=== PATIENT | male | born 1945 | race Caucasian/White ===

== ENCOUNTER 2017-11-15 10:15 | Inpatient (IN) | payer OTHER ==
[2017-11-15] MEDS ORDERED: IPRATROPIUM/ALBUTEROL 3 ML DEYVIAL IH ONE (10:23)
--- NOTE | 2017-11-15 10:23 | EDPHY ---
H & P Time Seen by Provider: 11/15/17 10:22 HPI/ROS: Chief complaint. Respiratory difficulty HPI. 72-year-old male here emergently by EMS. He was found not breathing in a parked car outside the [facility]. Patient has multiple myeloma. He has apparently had cough and some respiratory difficulty per his who comes shortly after the patient's arrival. He was seen yesterday at the [facility] and was evaluated but sent home. We find here that the patient has a fever. He did have leg surgery about 2 weeks ago. He has some swelling in his left lower extremity. The patient was placed on oxygen per EMS. Her his blood sugar was about 108. With the extra oxygen as the patient was quite hypoxic he is more alert and responsive and opens his eyes to verbal stimuli. He denies chest discomfort or abdominal pain. Here the patient is tachypnea with a respiratory rate of about 40. ROS Constitutional. Fever and generalized weakness Eyes. no problems with vision ENT. no sore throat, no nasal drainage Cardiovascular. no chest pain Respiratory. Apparent respiratory arrest. Some cough. Abdominal. no abdominal pain, no nausea/vomiting, no diarrhea . no problems urinating MS. no calf pain/swelling, no neck/back pain, no joint pain Skin. no rash Lymph. no swollen glands Neuro. Unable to walk or stand Past Medical/Surgical History: Multiple myeloma Social History: , nonsmoker, no alcohol Physical Exam: General Appearance: Arousable well-developed male moderate to severe distress Eyes: Pupils equal and round no pallor or injection. ENT, Mouth: Mucous membranes are moist. Respiratory: Retractions and tachypnea. Possible rales on the left side Cardiovascular: Regular rate and rhythm with tachycardia Gastrointestinal: Abdomen is soft and nontender, no masses, bowel sounds normal. Neurological: Opens eyes to verbal stimuli. Appears to move all extremities Skin: Warm and dry, no rashes. Musculoskeletal: Neck is supple nontender. Extremities symmetrical, full range of motion. Psychiatric: Patient opens eyes to stimuli Constitutional: Initial Vital Signs Heart Rate 155 H 11/15/17 10:15 Respiratory Rate 36 H 11/15/17 10:15 O2 Sat (%) 86 L 11/15/17 10:15 O2 Delivery Mode Bi-Pap O2 (L/minute) 100 Allergies/Adverse Reactions: No Known Allergies Allergy (Unverified 11/15/17 10:41) Home Medications: Medication Instructions Recorded Acyclovir [Zovirax 400 mg (*)] 400 mg PO BID 11/15/17 Albuterol [Proventil Inhaler HFA 1 - 2 puffs IH DAILY PRN 11/15/17 (*)] Dexamethasone [Decadron 4 MG (*)] 20 mg PO DAILY PRN 11/15/17 LORazepam [Ativan (*)] 0.5 mg PO Q8HRS PRN 11/15/17 Montelukast Sodium [Singulair 10 10 mg PO DAILY 11/15/17 mg (*)] Multivitamins [Multivitamin (*)] 1 each PO DAILY 11/15/17 Ondansetron HCl [Zofran] 8 mg PO Q8HRS PRN 11/15/17 Rivaroxaban [Xarelto 10mg (*)] 10 mg PO DAILY 11/15/17 traMADol [Ultram 50 mg (*)] 50 mg PO Q4 PRN 11/15/17 Medical Decision Making - Diagnostics EKG Interpretation: EKG interpreted by me shows sinus tachycardia. Normal interval and axis. QRS is otherwise normal there is no significant ST elevation or depression. No arrhythmia. Rate 128 Imaging Results: Imaging Impressions Chest X-Ray 11/15/17 10:23 Impression: 1. Left lower lung zone pneumonia. 2. Suspect low bone strength. This patient might benefit from a DEXA scan and follow-up skeletal survey. Chest x-ray interpreted by me shows left lower lobe pneumonia Procedures: Patient is placed on BiPAP. Patient given DuoNeb updraft. Sepsis workup IV normal saline, monitor. Severe sepsis declared at 10:45 a.m. . IV Levaquin. Patient has been given a 30 milliliter/kilogram bolus. Blood pressure remained stable ED Course/Re-evaluation: Serial evaluations and constant attendance for the 1st 25 min shows the patient' s heart rate to go from originally about 150 now at 1:07 a.m.. Blood pressure was 80/40 but now is coming up 92/55. He is receiving his 30 milliliter/ kilogram IV fluid bolus. On BiPAP oxygen saturation is 98%. Patient is becoming more alert. The patient, his , and I discussed imaging and lab results. We discussed treatment plan including recommendation for admission. They expressed understanding and agreement I consulted and discussed case with Dr. Alonzo, hospitalist who agrees to the admission I consulted discussed the case with Dr. Irwin for oncology. There is concern for DVT/PE though the patient does have finding of pneumonia on chest x- ray. Risk factors include multiple myeloma, recent leg surgery, mild leg swelling. Patient's creatinine is elevated 2.2 and so were unable to scan him currently. Ultrasound of his leg is ordered. Differential Diagnosis: Appears the patient has pneumonia. He has sepsis. He is certainly at risk for pulmonary embolus but his creatinine is too high to do a CT angiogram. He does have left leg swelling and so an ultrasound of his left extremity is ordered by me. Critical Care Time: Critical care time exclusive procedures 45 min - Data Points Laboratory Results: Laboratory Results 11/15/17 10:20 11/15/17 10:20 11/15/17 11/15/17 11/15/17 10:35 10:30 10:20 WBC RBC Hgb POC Hgb 10.9 gm/dL L gm/dL (13.7-17.5) Hct POC Hct 32 % L % (40-51) MCV MCH MCHC RDW Plt Count MPV Neut % (Auto) Lymph % (Auto) [place] % (Auto) Eos % (Auto) Baso % (Auto) Nucleat RBC Rel Count Absolute Neuts (auto) Absolute Lymphs (auto) Absolute Monos (auto) Absolute Eos (auto) Absolute Basos (auto) Absolute Nucleated RBC Immature Gran % Seg Neutrophils % Band Neutrophils % Lymphocytes % Monocytes % Eosinophils % Basophils % Metamyelocytes % Myelocytes % Promyelocytes % Blast Cells % Immature Gran # Absolute Seg Neuts Absolute Band Neuts Absolute Lymphocytes Absolute Monocytes Absolute Eosinophils Absolute Basophils Absolute Metamyelocyte Absolute Myelocytes Absolute Promyelocytes Absolute Plasma Cells Absolute Blast Cells Plasma Cells % Platelet Estimate Microcytic Cells Oval Macrocytes Echinocytes PT INR D-Dimer VBG Lactic Acid 13.6 mmol/L H mmol/L (0.7-2.1) POC Sodium 143 mEq/L mEq/L (135-145) Sodium POC Potassium 4.8 mEq/L mEq/L (3.3-5.0) Potassium POC Chloride 110 mEq/L mEq/L (97-110) Chloride Carbon Dioxide Anion Gap POC BUN 39 mg/dL H mg/dL (7-23) BUN Creatinine POC Creatinine 2.2 mg/dL H mg/dL (0.7-1.3) Estimated GFR Glucose POC Glucose 82 mg/dL mg/dL (70-100) Calcium Magnesium 2.6 mg/dL H mg/dL (1.6-2.3) Total Bilirubin Troponin I NT-Pro-B Natriuret Pep Procalcitonin Pending 11/15/17 11/15/17 11/15/17 10:20 10:20 10:20 WBC 4.97 10^3/uL 10^3/uL (3.80-9.50) RBC 3.60 10^6/uL L 10^6/uL (4.40-6.38) Hgb 11.4 g/dL L g/dL (13.7-17.5) POC Hgb Hct 37.4 % L % (40.0-51.0) POC Hct MCV 103.9 fL H fL (81.5-99.8) MCH 31.7 pg pg (27.9-34.1) MCHC 30.5 g/dL L g/dL (32.4-36.7) RDW 18.2 % H % (11.5-15.2) Plt Count 308 10^3/uL 10^3/uL (150-400) MPV 10.2 fL fL (8.7-11.7) Neut % (Auto) Not Reported Lymph % (Auto) Not Reported [place] % (Auto) Not Reported Eos % (Auto) Not Reported Baso % (Auto) Not Reported Nucleat RBC Rel Count Not Reported Absolute Neuts (auto) Not Reported Absolute Lymphs (auto) Not Reported Absolute Monos (auto) Not Reported Absolute Eos (auto) Not Reported Absolute Basos (auto) Not Reported Absolute Nucleated RBC Not Reported Immature Gran % Not Reported Seg Neutrophils % 40.0 % % Band Neutrophils % 48.0 % % Lymphocytes % 3.0 % % Monocytes % 3.0 % % Eosinophils % 0 % % Basophils % 0 % % Metamyelocytes % 6.0 % % Myelocytes % 0 % % Promyelocytes % 0 % % Blast Cells % 0 % % Immature Gran # Not Reported Absolute Seg Neuts 1.99 10^/uL 10^/uL (1.70-6.50) Absolute Band Neuts 2.39 10^3/uL H 10^3/uL (0.00-0.70) Absolute Lymphocytes 0.15 10^3/uL L 10^3/uL (1.00-3.00) Absolute Monocytes 0.15 10^3/uL L 10^3/uL (0.30-0.80) Absolute Eosinophils 0.00 10^3/uL L 10^3/uL (0.03-0.40) Absolute Basophils 0.00 10^3/uL L 10^3/uL (0.02-0.10) Absolute Metamyelocyte 0.30 10^3/mL H 10^3/mL (0.00-0.00) Absolute Myelocytes 0.00 10^3/mL 10^3/mL (0.00-0.00) Absolute Promyelocytes 0.00 10^3/uL 10^3/uL (0.00-0.00) Absolute Plasma Cells 0.00 10^3/uL 10^3/uL (0.00-0.00) Absolute Blast Cells 0.00 10^3/uL 10^3/uL (0.00-0.00) Plasma Cells % 0 % % Platelet Estimate ADEQUATE (ADEQ) Microcytic Cells 1+ H Oval Macrocytes 1+ H Echinocytes 1+ H PT 33.0 SEC H SEC (12.0-15.0) INR 3.26 H (0.83-1.16) D-Dimer 1.83 ug/mLFEU H ug/mLFEU (0.00-0.50) VBG Lactic Acid POC Sodium Sodium 144 mEq/L mEq/L (135-145) POC Potassium Potassium 5.1 mEq/L H mEq/L (3.3-5.0) POC Chloride Chloride 104 mEq/L mEq/L (97-110) Carbon Dioxide 15 mEq/l L mEq/l (22-31) Anion Gap 25 mEq/L H mEq/L (8-16) POC BUN BUN 43 mg/dL H mg/dL (7-23) Creatinine 2.0 mg/dL H mg/dL (0.7-1.3) POC Creatinine Estimated GFR 33 Glucose 91 mg/dL mg/dL (70-100) POC Glucose Calcium 9.2 mg/dL mg/dL (8.5-10.4) Magnesium Total Bilirubin 1.1 mg/dL mg/dL (0.1-1.4) Troponin I 0.036 ng/mL H ng/mL (0.000-0.034) NT-Pro-B Natriuret Pep 3670 pg/mL H pg/mL (0-125) Procalcitonin Medications Given: Acetaminophen (Tylenol) 650 mg PO Q4HRS PRN PRN Reason: Pain, Mild/Fever, Can Take PO Stop: 05/14/18 11:14 Last Admin: 11/15/17 11:36 Dose: 650 mg Heparin Sodium (Porcine) (Heparin Sc Injection) 5,000 unit SC Q8HRS CHRISTINA Stop: 05/14/18 13:59 Last Admin: 11/15/17 13:32 Dose: 5,000 unit Hydrocortisone (Solucortef) 60 mg IVP Q8HRS [facility] Stop: 05/14/18 12:44 Last Admin: 11/15/17 14:20 Dose: Not Given Ascorbic Acid 1,500 mg/ (Dextrose) 103 mls @ 206 mls/hr IV Q6H [facility] Stop: 11/19/17 07:59 Last Admin: 11/15/17 14:14 Dose: 103 mls Thiamine HCl 200 mg/ Sodium (Chloride) 102 mls @ 204 mls/hr IV Q12H [facility] Stop: 11/19/17 01:44 Last Admin: 11/15/17 13:31 Dose: 102 mls Discontinued Medications Albuterol/Ipratropium (Duoneb) 3 ml IH EDNOW ONE Stop: 11/15/17 10:24 Last Admin: 11/15/17 10:37 Dose: 3 ml Levofloxacin/Dextrose (Levaquin 750 Mg (Premix)) 150 mls @ 100 mls/hr IV EDNOW ONE PRN Reason: Protocol Stop: 11/15/17 12:13 Last Admin: 11/15/17 10:49 Dose: 150 mls Sodium Chloride (Ns) 1,800 mls @ 3,600 mls/hr 30 ml/kg infuse over 30 min ( 1800 ml) IV EDNOW ONE PRN Reason: Protocol Stop: 11/15/17 11:13 Last Admin: 11/15/17 10:53 Dose: 1,800 mls Sodium Chloride (Ns) 1,000 mls @ 3,000 mls/hr IV ONCE ONE Stop: 11/15/17 13:08 Last Admin: 11/15/17 12:50 Dose: 1,000 mls Point of Care Test Results: 11/15/17 10:35 POC Sodium 143 POC Potassium 4.8 POC Chloride 110 POC BUN 39 H POC Creatinine 2.2 H POC Glucose 82 Departure - Departure Disposition: [facility] Inpatient Acute Clinical Impression: Pneumonia Qualifiers: Pneumonia type: due to unspecified organism Laterality: left Lung location: lower lobe of lung Qualified Code(s): J18.1 - Lobar pneumonia, unspecified organism Sepsis Qualifiers: Sepsis type: sepsis due to unspecified organism Qualified Code(s): A41.9 - Sepsis, unspecified organism Condition: Fair
[2017-11-15 10:30] LABS: PLATELET COUNT 308 10^3/uL (150-400)
[2017-11-15] MEDS ORDERED: IPRATROPIUM/ALBUTEROL 3 ML DEYVIAL ONE (10:37)
--- NOTE | 2017-11-15 10:38 | CPEKG ---
Heart Rate: 128 RR Interval: 469 P-R Interval: 90 QRSD Interval: 86 QT Interval: 348 QTC Interval: 508 P [place]: 0 QRS [place]: 72 T Wave [place]: 51 EKG Severity - BORDERLINE ECG - EKG Impression: SINUS TACHYCARDIA EKG Impression: VENTRICULAR PREMATURE COMPLEX EKG Impression: BORDERLINE PROLONGED QT INTERVAL Electronically Signed By: Doug Hill 15-Nov-2017 14:45:30
[2017-11-15 10:42] LABS: INR 3.26 (0.83-1.16)
[2017-11-15] MEDS ORDERED: NS 1,800 ML IV ONE (10:44)
[2017-11-15] MEDS ORDERED: ONDANSETRON DISINTEGRATING 4 MG TAB PO PRN (11:15)
[2017-11-15] MEDS ORDERED: ONDANSETRON 4 MG/2 ML VIAL IVP PRN (11:15)
[2017-11-15] MEDS ORDERED: ACETAMINOPHEN 325 MG TAB PO PRN (11:15)
[2017-11-15] MEDS ORDERED: ACETAMINOPHEN 325 MG TAB ONE (11:35)
[2017-11-15] MEDS ORDERED: ALTEPLASE 2 MG VIAL IVP PRN (12:34)
[2017-11-15] MEDS ORDERED: NS 1,000 ML IV ONE (12:49)
[2017-11-15] MEDS ORDERED: NOREPINEPHRINE/NS 500 ML IV SCH (13:00)
--- NOTE | 2017-11-15 13:30 | GHP ---
[f rep st] HISTORY AND PHYSICAL DATE OF ADMISSION: 11/15/2017 CHIEF COMPLAINT: Septic shock and left-sided pneumonia. HISTORY OF PRESENT ILLNESS: This is a 72-year-old male with relapsed multiple myeloma on chemotherapy who was with his today when he slumped over suddenly. History was obtained from and daughter as the patient is not able to participate in the exam. They report shallow breathing for the past week since surgery 11/02 for stabilization of left femur plasmacytoma in [place]. He has been on Xarelto for prophylaxis. Has become confused over the past 2 weeks. Has had a cough intermittently for the past 2 days with yellow sputum production. No V/D, but dry having dry heaves. Decreased p.o. intake for the last several months and has lost 10 pounds. He was started on a new chemotherapy yesterday and is chronically on steroids, which were increased this week. No ill contacts. In the emergency room he was found to be in respiratory distress and started on BiPAP. He was transferred to the ICU for further care. REVIEW OF SYSTEMS: I completed a 10-point review of system per records and with family. PAST MEDICAL HISTORY: Multiple myeloma next. PAST SURGICAL HISTORY: Left femur stabilization on 11/02 in [place]. FAMILY HISTORY: Father with COPD and lung cancer. Mother with lymphoma. Sister with NH at age 60 and breast cancer. ALLERGIES: None. HOME MEDICATIONS: Tramadol 50 mg every 4 hours p.r.n., singular 10 mg daily, Ativan 0.5 mg every 8 hours p.r.n., acyclovir 400 mg twice daily, Zofran 8 mg every 8 hours p.r.n., Decadron 20 mg daily, Xarelto 10 mg daily, multivitamin, and albuterol. PHYSICAL EXAM: VITAL SIGNS: Temperature is 38.3, blood pressure 88/49, heart rate 109, respirations 31, and O2 sat is 84% on BiPAP. GENERAL: In moderate distress. HEENT: PERRLA. Dry mucous membranes. CARDIOVASCULAR: Tachycardic , but regular rate and rhythm. LUNGS: No rales or wheezes. Increased work of breathing using accessory muscles. ABDOMEN: Soft, nontender, and nondistended with positive bowel sounds. : No Tubbs. MUSCULOSKELETAL: Left hip and leg surgical incision and osmel are clean and dry with no evidence of purulence or erythema. This leg is more swollen compared to the right. No overlying erythema. NEUROLOGIC: 2 through 12 are intact. PSYCHIATRIC: Alert and oriented. He is answering questions appropriately. LABORATORY DATA: WBC is 4, hemoglobin 11, hematocrit 37, and platelets 308 with MCV of 104. D-dimer is 1.83. INR is 3.2 and PT is 33. Lactate was 13.6 with repeat of 6.2. Sodium is 143, potassium 4.8, chloride 110, BUN 39, and creatinine is 2.2. Troponin is 0.036. BNP is 3670. Baseline creatinine is 0.8 to 1.2. IMAGING: Chest x-ray was personally reviewed by me showing left lower lobe infiltrate. No effusion. ASSESSMENT AND PLAN: 1. Septic shock secondary to left lower lobe pneumonia with tachycardia, fever , and elevated lactate. He is being aggressively resuscitated with IV fluids. If not responsive, we will start Levophed, high-dose steroids, given chronic use at home, and continue treatment for community-acquired pneumonia with azithromycin and ceftriaxone. He was dosed with Levaquin in the emergency room. Surgical incision healing with no redness, purulence. Check a sputum culture, blood cultures, and respiratory panel. High-risk of mortality with end- organ damage 2. Acute hypoxic respiratory failure: secondary to acute pneumonia & Entero/ rhinovirus. Less likely PE since on Xarelto and negative LE ultrasound. I asked Dr. Gama to evaluate for intubation given increased WOB and may tire out. Check ABG. Patient okay with intubation. 3. Acute kidney injury: due to dehydration, hypotension. Aggressively rehydrate , avoid nephrotoxic agents, and repeat BMP. 4. Multiple myeloma: followed by Dr. Irwin. Oncology will consult.. 5. Anion gap metabolic acidosis: due to hypovolemia. This is improving with fluids and we will continue to trend. 6. Hematuria: suspect catheter trauma compounded with Xarelto. Trend H/H 7. Deep vein thrombosis prophylaxis: SCDs with hematuria DIET IS: n.p.o. DISPOSITION: The patient warrants ICU care with critical illness warranting IV antibiotics, fluids, possible intubation. Critical time spent was 50 minutes evaluating the patient at the bedside with family, reviewing records, and discussing the case with Dr. Gama. /[id number]/MODL MTDD
[2017-11-15] MEDS: HYDROCORTISONE 100 MG/2 ML VIAL IVP SCH ×3 (13:31→22:15)
[2017-11-15] MEDS: THIAMINE HCL 200 MG in NS 100 ML IV SCH (13:31)
[2017-11-15] MEDS ORDERED: HEPARIN 5,000 UNIT/0.5 ML INJ SC SCH (14:00)
[2017-11-15] MEDS: ASCORBIC ACID 1,500 MG in D5W 100 ML IV SCH (14:14)
--- NOTE | 2017-11-15 14:31 | PDMN ---
Medical Necessity Medical necessity: Pt meets IP criteria per MD; est los >2 mn for septic shock & acute hypoxic respiratory failure secondary to LLL pneumonia, as well as acute kidney injury & metabolic acidosis; pt critically ill; admit to ICU for further workup/close monitoring, IV abx, aggressive IVFs & likely intubation; hx multiple myeloma on chemo; per H&P & order 11/15/17
[2017-11-15] MEDS ORDERED: NS 1,000 ML IV SCH (15:45)
[2017-11-15] MEDS ORDERED: ALBUMIN 5% 500 ML IV ONE (15:55)
--- NOTE | 2017-11-15 16:51 | GHP ---
[f rep st] HISTORY AND PHYSICAL DATE OF ADMISSION: 11/15/2017 REFERRING PHYSICIAN: Yady Alonzo MD REASON FOR REFERRAL: Evaluation and management of pneumonia and septic shock. HISTORY: The patient is a 72-year-old male with a history of multiple myeloma status post recent rel apse with plasmacytoma in his knee, who was started on chemotherapy yesterday. At that time, he was seen, evaluated, and although he had cough for a few days with some scant sputum, he was not febrile and he had chemotherapy yesterday. Today he was back at the cancer center and was found unresponsive in his car. He was brought into the emergency department where he was found to be hypotensive, tach ypneic, and hypoxemic. He was started on a sepsis protocol and then brought to the intensive care un it, where he was noted to have tachypnea and labored respirations, possibly impending respiratory marian lure. The patient states that he is quite tachypneic, but does not feel like he is tiring out. He d enies chest pain. He has had some cough. PAST MEDICAL HISTORY: 1. Multiple myeloma. 2. Status post surgery 2 weeks ago on his knee, with stabilization of a plasmacytoma. MEDICATIONS: At time of admission include tramadol, Singulair, Ativan, acyclovir, Zofran, Decadron a nd Xarelto. ALLERGIES: None. SOCIAL HISTORY: He is a nonsmoker. He denies alcohol. FAMILY HISTORY: Positive for COPD and lung cancer. PHYSICAL EXAMINATION: GENERAL: The patient is awake and oriented. He is in moderate respiratory di stress. VITAL SIGNS: His blood pressure is 90/53 with a mean arterial pressure of 62. Heart rate 11 0. His temperature is 38.9, respiratory rate 31. Oxygen saturations are 100% on BiPAP. HEENT: Nor mocephalic and atraumatic. No icterus. NECK: No adenopathy. Trachea is midline. CHEST: He has s ome rales in the left base. CARDIOVASCULAR: Regular, tachycardia without murmur. ABDOMEN: Soft, n ontender. Bowel sounds are present. EXTREMITIES: No clubbing, cyanosis, or edema. NEURO: The pat ient is awake, alert, and oriented. There are no gross motor or sensory deficits. LABORATORY: Hemoglobin is 11.4, platelet count is with 48% bands. The platelet count is . An INR is 3.3 with a D-dimer of 1.8 arterial. A chemistry group shows a creatinine of 2 .0, up from 1.2 yesterday. Troponin is 0.036. A BNP is 3670. Pr. Procalcitonin is 132. Arterial blood gas shows a pH of 7.49, with a pO2 of 56, a CO2 of 23 and a bicarbonate of 17, at 100% oxygen. Lactate is 13 6.2, down from 13.6 at admission. IMAGING: A chest x-ray shows hyperinflation with left lower lobe infiltrate. Images reviewed by me. ASSESSMENT: 1. Septic shock. The patient presents with hypotension, tachycardia, fever, bandemia, and cough and initially being obtunded. He has now responded to IV fluids and initial empiric antibiotic therapy with Levaquin, ceftriaxone and azithromycin. However, he has had increased respiratory distress, pos sibly due to progressive infiltrates and gas exchange difficulties. I was called initially to the shannon nicole's bedside for respiratory failure with intubation, but upon looking at him, he seems to be hold ing his own with tachypnea, but he does not feel he is tiring out. His blood gas does not show CO2 r etention or uncompensated metabolic acidosis, so I think we can potentially hold off on intubation at this point. 2. Acute respiratory failure. Due to pneumonia and probable sepsis. As above, he is currently tach ypneic and has fairly high oxygen needs, but does not need urgent intubation. 3. Acute kidney injury. This is likely due to sepsis. Bladder outlet obstruction is also a possibi lity, as he has apparently had fairly low urine output and with frequent urination of small volumes s alfredito his surgery 2 weeks ago. 4. Multiple myeloma. RECOMMENDATIONS: 1. Continue empiric antibiotics. 2. Continue sepsis protocol. 3. Keep in the ICU. The patient will be monitored closely, and will intubate if he has progressive respiratory failure. I had a talk with the patient and his , and explained to the that I fe el he is at fairly higher morbidity due to his severe sepsis. They would like to proceed with intuba tion if clinically necessary. 4. I will start IV vitamin C protocol. 5. The patient is on Xarelto for DVT prophylaxis. I do not think further evaluation for DVT/PE is w arranted at the current time, given the current clinical scenario. 6. Oncology has been consulted and will follow. /[id number]/MODL
--- NOTE | 2017-11-15 17:15 | ASMTCMCOM ---
CM Note CM Note Notes: 72yr old male admitted due to unresponsiveness in car outside [facility]. Started on chemo therapy 11/14/17 relapsed multiple myeloma. Recent L femur surgery 11/02/17. Now in ICU due to septic shock-L L PNA, Hypoxic resp failure, TAVON. Patient lives with his , supportive daughter. CM to follow. Date Signed: 11/15/2017 02:35 PM Electronically Signed By:Mary Santana LCSW
--- NOTE | 2017-11-15 17:51 | GCON ---
[f rep st] CONSULTATION NEW PATIENT CONSULTATION PRIMARY GIS ANALYST DEVELOPER: Ren Irwin MD. REASON FOR CONSULTATION: Patient admitted to the ICU today with fever, hypotension, loss of consciou sness. HISTORY OF PRESENT ILLNESS: Patient is a 72-year-old gentleman with a history of multiple myeloma. He was diagnosed in June 2013 at the [facility]. He had some incidentally discovered lytic lesions noted on x-rays performed for other reasons. He was ultimately diagnosed with IgA garcia bda myeloma. His bone marrow showed 30% involvement. There was a 13q and a translocation of 11;14 b y FISH. He had an M spike measuring 3.3 g/dL. There was extensive lytic lesions including expansile soft tissue mass at T7 vertebral body without cord compression. He started therapy with Revlimid, V elcade, and dexamethasone, and received palliative radiotherapy at T7 from 09/19/2013 to 10/02/2013, 30 Gy in 10 fractions. He opted not to pursue autologous stem cell transplant. He was started on maintenance Revlimid and h e continued on this treatment from mid 2013 through February of 2016 when he began to have progressive disease. He then started treatment on USOR #[id number] with pomalidomide, dexamethasone, and elotuzumab a nd was in a biochemical remission after several cycles. More recent scans including a PET-CT scan done 10/27/2017, showed extensive metabolically active mult iple myeloma throughout the axial and appendicular skeleton, large destructive soft tissue mass in th e distal left femur without pathologic fracture, marked uptake in the right greater trochanter withou t lytic lesion or pathologic fracture, and small indeterminate metabolically active lesion in the rig ht lobe of the liver, left pelvic lymphadenopathy, and small metabolically active right thyroid nodul e. Around this time, he also developed more left knee pain. MRI showed worsening of the lytic lesio n in the distal femur and Dr. 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 Despite the P ET-CT showing progressive myeloma, his biochemical markers including SPEP and free light chains remai n essentially normal. He had a fixation procedure for his knee on 11/01/2017, and still having a lot of pain. He was havin g nausea and poor p.o. intake. Dr. Irwin recommended moving onto third line therapy. Given progressive disease, it is now truly a nonsecretory myeloma. Patient had cycle 1, day 1 of daratumumab, Velcade, and dexamethasone on 11/14/2017. reports he did relatively well that day and had no concerning infusion reactions. When he left that day, he wa s very weak and could not get comfortable. She reports he was having a wet cough the day prior but d enies any fevers. He does not currently have a Tubbs or any indwelling catheters. reports that he had 2 days of a Tubbs status post knee surgery at the beginning of November, and she mentions to me he has had trouble voiding recently, and over the past couple days, has had minimal urinary output. REVIEW OF SYSTEMS: also reports patient had a syncopal episode last night and recovered on his own. Denies any seizure activity. On presenting to the hospital today for followup, he had a syncop al episode in the parking lot and then was brought into the ER. Vital signs showed hypotension, tach ycardia, and fever. PAST MEDICAL HISTORY: Multiple myeloma as detailed above. History of ankle edema, urinary frequency , T7 expansile lytic lesion status post RT, osteopenia, IgG kappa MGUS, fatigue. PAST SURGICAL HISTORY: Recent knee surgery. FAMILY HISTORY: Noncontributory. MEDICATIONS: Have been reviewed. Will note he was only on a prophylactic dose of Xarelto, given und erlying myeloma. He denies any leg swelling or upper extremity swelling. He also takes acyclovir pr ophylactically. PHYSICAL EXAM: VITAL SIGNS: Today, blood pressure 90/53, heart rate 108, saturating 100% on 15 L no n-rebreather. Temp is 38.9. GENERAL: He is an elderly man, chronically ill-appearing, moderate wor k of breathing. HEENT: Anicteric sclerae. HEART: Tachycardic. LUNGS: Some coarse breath sounds anteriorly. ABDOMEN: Soft, but he does have a distended bladder that is tender to palpation. EXTRE MITIES: Lower extremities, no significant edema. SKIN: Without rash. NEUROLOGIC: He is answering questions appropriately. IMAGING: Chest x-ray done this morning shows left lower lung zone pneumonia. LAB ASSESSMENT: Today shows white blood cell count of 4.9, hemoglobin 11.4, hematocrit 37.4, platele t count 308,000. Has increased amount of band neutrophils. INR 3.26. Lactic acid 6.2, potassium 5. 1, BUN 43, creatinine 2, baseline about 1, total bilirubin 1.1. BNP 3670. ASSESSMENT PLAN: Mr. Shae Mathews is a 72-year-old gentleman with a history of progressive IgA lambda myeloma, who was most recently started on third line therapy, who presents with hypotension, tachyca rdia, and fever worrisome for sepsis. Workup is ongoing. 1. Fever, tachycardia, and hypotension. So far, imaging suggests possible left-sided pneumonia. Wi ll be treated with broad-spectrum antibiotics. Respiratory status is tenuous. I do not feel this is a daratumumab reaction as these usually happen the day of infusion, but certainly, he could be made more short of breath with the amount of fluids he received yesterday. 2. Syncopal episode. He is on low-dose Xarelto, is not therapeutic. Cannot rule out pulmonary embo uche. Photonics Engineering Technician plans to check bilateral lower extremity Dopplers and an echocardiogram. 3. Urinary retention, unclear etiology. Has not been present before. It sounds like it started aft er Tubbs placement the beginning of November. Will place Tubbs. 4. Fever and sepsis workup. Cultures pending at this time including blood, urine. 5. IgA lambda myeloma. Recently started third line therapy with daratumumab, Velcade, and dexametha sone; cycle 1, day 2 today. He is certainly immune compromised and high risk for infection. He has been on prophylactic acyclovir. Will continue to follow along with progress. 6. Myeloma-related lytic lesions. History of radiotherapy and I believe he also remains on a bone s trengthening medication but will have to follow up on this. Continue pain control. Over 30 minutes was spent with patient, more than 50% of time counseling and coordinating care. We w dario continue to follow along during his hospitalization course and make recommendations as appropriat e. /[id number]/MODL
[2017-11-15] MEDS: NOREPINEPHRINE BITARTRATE 4 MG in NS 500 ML IV SCH (22:15)
[2017-11-15] MEDS: cefTRIAXone 2 GM in STERILE WATER INJ 20 ML IV SCH (23:17)
[2017-11-16] MEDS ORDERED: LIDOCAINE 2% JELLY 5 ML TUBE TP ONE (00:01)
[2017-11-16] MEDS ORDERED: LIDOCAINE 2% JELLY 20 ML (UROJECT) UR ONE ×2 (00:15→09:00)
[2017-11-16] MEDS: HYDROmorphONE/DILAUDID 1 MG/ML INJ IVP PRN ×2 (01:22→07:09)
[2017-11-16] MEDS: ASCORBIC ACID 1,500 MG in D5W 100 ML IV SCH ×5 (01:46→20:40)
[2017-11-16] MEDS: THIAMINE HCL 200 MG in NS 100 ML IV SCH ×2 (02:01→15:43)
[2017-11-16] MEDS: NOREPINEPHRINE BITARTRATE 4 MG in NS 500 ML IV SCH ×4 (02:53→23:22)
[2017-11-16 04:22] LABS: INR 2.19 (0.83-1.16); PROTIME(PATIENT) 24.4 SEC (12.0-15.0)
[2017-11-16] MEDS ORDERED: D50W 25 GM/50 ML SYR IVP PRN (04:59)
[2017-11-16] MEDS: HYDROCORTISONE 100 MG/2 ML VIAL IVP SCH ×3 (06:45→22:42)
[2017-11-16] MEDS ORDERED: LIDOCAINE 1% 300 MG/30 ML SDV ONE (08:12)
--- NOTE | 2017-11-16 08:35 | SOAPPROG ---
SOAP Progress Note Assessment/Plan: Assessment: Hematuria -- bladder clot noted and by notes seems may be related to catheter trauma and anticoagulation, consider irrigation in OR if progresses , yet will need overall assessment prior to comitting to this intervention. Discussed with and plans and risks outlined Plan: attempted to irrigate skinner and not successful, plan for OR today to irrigate bladder free of clots 11/16/17 08:33 Subjective: bladder full, patient and family and friends present, noted to have some LUTS prior to being in hospital. I have replaced his skinner to a [address] and could not get return or aspirate any clots. Discussed with family to have OR intervention transurethrally. Risks discussed in face of severely ill patient. Objective: Vital Signs Temp Pulse Resp BP Pulse Ox 38.0 C 114 H 29 H 116/53 L 92 11/16/17 03:00 11/16/17 08:00 11/16/17 08:00 11/16/17 08:00 11/16/17 08:00 Microbiology 11/15/17 13:07 Respiratory Panel (PCR) - Final Nasal, Sinus - Swab Human Rhinovirus/Enterovirus Laboratory Results 11/16/17 04:00 11/16/17 04:00 11/15/17 11/16/17 11/17/17 05:59 05:59 05:59 Intake Total 4045 Output Total 4400 Balance -355 PT 24.4 SEC (12.0-15.0) H D 11/16/17 04:00 INR 2.19 (0.83-1.16) H 11/16/17 04:00 Physical Exam - Physical Exam General Appearance: cachetic Neck: full range of motion Respiratory: No respiratory distress Cardiac/Chest: regular rate, rhythm Abdomen: other (bladder distented and firm to umbilicus and laterally, suggestive of >3 liters in bladder) ICD10 Worksheet Patient Problems: Problems Problem Status Onset Pneumonia Acute Sepsis Acute
[2017-11-16] MEDS: LORazepam 2 MG/ML INJ IVP PRN (08:55)
[2017-11-16] MEDS: AZITHROMYCIN IV 500 MG in NS 250 ML IV SCH (08:58)
[2017-11-16] MEDS: cefTRIAXone 2 GM in STERILE WATER INJ 20 ML IV SCH (08:58)
[2017-11-16] MEDS ORDERED: ENOXAPARIN 40 MG/0.4 ML SYR SC SCH (09:00)
--- NOTE | 2017-11-16 09:08 | HOSPPROG ---
Hospitalist Progress Note Assessment/Plan: #Septic shock: multiple sources. E Coli bacteremia, PNA, Entero/rhinovirus, acute blood loss -wean Levophed as tolerated, IV steroids, ascorbic acid, Albumin #E coli bacteremia: Invanz. Urinary source with bladder stones/hematoma #Acute blood loss anemia: large bladder hematoma: Likely related to skinner for surgery early this month while on Xarelto -stones and clot evacuated by Dr Mtz today #Bladder obstruction: due to hematoma #MM: chemo on hold #Recent stabilization of plasmocytoma. Surgical site healing well #Chronic steroid use: stress-dose steroids #Cardiac arrest: went into rapid a fib in OR, has ROSC with CPR #Atrial fibrillation with RVR: cardioverted x 2. Amiodarone gtt, Cardizem gtt if BP tolerates. No heparin with ABLA #CAP: Azitho, Invanz. Strep, Legionella pending #Acute hypoxic resp failure: intubated during surgery today #TAVON: due to shock, hypotension #Diet: NPO #Disp: critically ill requiring ICU for pressors, IV amiodarone. D/w Dr. Gama and Jorge Martines with Urology Critical care time spent: 45 min bedside with pt labs review and consulting with Urology Subjective: while in OR lost pulse, CPR performed Objective: Vital Signs Temp Pulse Resp BP Pulse Ox 38.0 C 112 H 19 118/62 95 11/16/17 03:00 11/16/17 07:00 11/16/17 07:00 11/16/17 07:00 11/16/17 07:00 Microbiology 11/15/17 13:07 Respiratory Panel (PCR) - Final Nasal, Sinus - Swab Human Rhinovirus/Enterovirus Laboratory Results 11/16/17 04:00 11/16/17 04:00 11/15/17 11/16/17 11/17/17 05:59 05:59 05:59 Intake Total 4045 Output Total 4400 Balance -355 PT 24.4 SEC (12.0-15.0) H D 11/16/17 04:00 INR 2.19 (0.83-1.16) H 11/16/17 04:00 - Time Spent With Patient Time Spent with Patient: greater than 35 minutes Time Spent with Patient: Greater than 35 minutes spent on this patients care, greater than 50% of time spent counseling, educating, and coordinating care regarding the above mentioned plan. - Physical Exam Eyes: PERRL Ears, Nose, Mouth, Throat: dry mucous membranes Cardiovascular: regular rate and rhythym, tachycardia Respiratory: rhonchi Genitourinary: other (bladder distended up to umbilicus, very firm. Blood at urethra) Musculoskeletal: other (left leg incision site C/D/I. No redness, warmth) Neurologic: AAOx3, CN II-XII Intact Psychiatric: interacting appropriately ICD10 Worksheet Patient Problems: Problems Problem Status Onset Pneumonia Acute Sepsis Acute
[2017-11-16] MEDS: ERTAPENEM 1 GM VIAL IV SCH (09:43)
--- NOTE | 2017-11-16 09:46 | PDINTPN ---
Accountant Tax Progress Note Assessment/Plan: Assessment: Septic Shock: Improved. BP OK on NE at 10. E.Coli in blood. Have met goals of sepsis protocol E. Coli bacteremia: Likely Urinary source. On CTX/Azithro Pneumonia: Enterovirus on respiratory panel. ? if this is the pathogen and/or he has ARDS, although infiltrates are asymmetric Acute respiratory failure: Hypoxemic. Likely due to sepsis/ARDS as well as entrovirus. O2 needs high but stable, doesn't appear to be tiring. TAVON: Likely due to sepsis as well as obstruction from bladder hematoma Bladder outlet obstruction due to hematoma: Caused by anticoagulation. Initially did well with bladder irrigation, but then output stopped and he's again distended. Anemia: Likely due to volume expansion, bladder bleeding, pre-existing anemia from surgery 2 weeks ago and MM. Stable overnight. Hypernatremia: Mild. May still be volume depleted. Multiple Myeloma: S/P chemotherapy earlier this week. S/P stabilization of leg pathologic lesion 2 weeks ago. Plan: Change antibiotics to Ertapenem per ID Check NICOM to determine if he is still fluid responsive. Continue sepsis protocol. Probably will go to OR later today to attempt to clear obstruction from hematoma. 45 minutes CC time, managing hypotension requiring pressors, IVF boluses, hypoxemic respiratory failure that may require intubation. 11/16/17 10:46 Subjective: Minimal lower abdominal discomfort. Minimal appetite. Breathing less labored. Objective: Vital Signs Temp Pulse Resp BP Pulse Ox 37.7 C 105 H 25 H 108/57 L 95 11/16/17 09:00 11/16/17 09:00 11/16/17 09:00 11/16/17 09:00 11/16/17 09:00 Microbiology 11/15/17 13:07 Respiratory Panel (PCR) - Final Nasal, Sinus - Swab Human Rhinovirus/Enterovirus Laboratory Results 11/16/17 04:00 11/16/17 04:00 11/15/17 11/16/17 11/17/17 05:59 05:59 05:59 Intake Total 4045 Output Total 4400 Balance -355 PT 24.4 SEC (12.0-15.0) H D 11/16/17 04:00 INR 2.19 (0.83-1.16) H 11/16/17 04:00 Laboratory Tests 11/15/17 11/16/17 11/16/17 10:20 04:00 04:00 INR 2.19 H VBG Lactic Acid 2.4 H Calcium Albumin Procalcitonin 131.92 H 11/16/17 04:00 INR VBG Lactic Acid Calcium 6.8 L Albumin 2.0 L Procalcitonin Microbiology 11/15/17 13:07 Nasal, Sinus - Swab Respiratory Panel (PCR) - Final Human Rhinovirus/Enterovirus 11/15/17 10:30 Blood Blood Panel (PCR) - Final Escherichia Coli 11/15/17 10:30 Blood Blood Culture - Preliminary 11/15/17 10:30 Blood Gram Negative Sammy Physical Exam - Physical Exam General Appearance: alert, mild distress EENT: normal ENT inspection Neck: normal inspection Respiratory: crackles (bases) Cardiac/Chest: tachycardia (regular) Abdomen: other (non-tender 15 cm mass midline suprapubic.) Skin: warm/dry, No cyanosis Extremities: normal inspection Neuro/Psych: alert, normal mood/affect, oriented x 3 ICD10 Worksheet Patient Problems: Problems Problem Status Onset Pneumonia Acute Sepsis Acute
[2017-11-16] MEDS ORDERED: ALBUMIN 5% 500 ML IV ONE ×2 (10:44→14:00)
--- NOTE | 2017-11-16 10:50 | GCON ---
[f rep st] CONSULTATION INFECTIOUS DISEASE CONSULTATION DATE OF CONSULTATION: 11/16/2017 REFERRING PHYSICIAN: Yady Alonzo MD REASON FOR CONSULTATION: Septic shock with E coli bacteremia. HISTORY OF PRESENT ILLNESS: The patient is a 72-year-old male with relapsed multiple myeloma, recent ly initiated on new chemotherapeutic regimen with Velcade, dexamethasone, and daratumumab on 11/15/19 18, whom I am asked to see in consultation for septic shock with E coli bacteremia. The patient brittani jara developed a syncopal episode, prompting evaluation in the emergency department. At the time o f that evaluation, the patient had hypotension, fever, significant respiratory distress, and tachycar ajith. The patient has required Levophed for blood pressure support. The patient had undergone a fixa tion procedure of the left femur on 11/02/2017 in [place] for treatment of myeloma involvement of h is left lower extremity. His describes that after Tubbs catheter placement, he had blood presen t on both thighs. She believes his Tubbs was in for 2-3 days. After returning home, the patient damian cribed having urinary frequency and urgency without dysuria. He describes having small amounts of bl ood in his urine. He also had developed a productive cough with yellow-green sputum production. Thi s was associated with progressive shortness of breath. He has had some nausea, but no vomiting or di arrhea. Patient's does not note any problems with swallowing or choking. Urinalysis obtained o n 11/14/2017 showed 3+ blood with 1+ leukocyte esterase; microscopic analysis was not performed. Cul tures from that specimen are showing 50-60,000 yeast. At the time of his presentation yesterday, blo od cultures were obtained, and both sets are now showing growth of E coli. A respiratory pathogen pa marely by PCR was performed, which shows human rhinovirus/enterovirus. Urine culture is currently pendi ng. The patient was started empirically on ceftriaxone and azithromycin. He subsequently has develo ped progressive swelling in the suprapubic region, extending into his periumbilical region. He was s een by Urology after an abdominal ultrasound had been obtained, suggesting blood clot within the blad david. Currently, this is being considered for irrigation in the operating room given that he has not had response to bladder irrigation. Chest x-ray at the time of presentation has shown left lower lob e infiltrate. Given the above findings, I am now asked to assist in his ongoing management. PAST MEDICAL HISTORY: Relapsed multiple myeloma, as above. PAST SURGICAL HISTORY: Left thigh surgery, as outlined above; hardware is in place. CURRENT MEDICATIONS: Ceftriaxone 2 g IV daily, azithromycin 500 mg IV daily, vitamin C 1500 mg IV q. 6 hours, hydrocortisone 60 mg IV q.8 hours, Levophed drip, thiamin 200 mg IV q.12 hours. ALLERGIES: No known drug allergies. SOCIAL HISTORY: Patient does not smoke and rarely drinks alcohol. No drug use. No recent travel or animal exposure. FAMILY HISTORY: Lymphoma, breast cancer, lung cancer. REVIEW OF SYSTEMS: Patient has had a left-sided footdrop postoperatively. Outside that noted in the HPI, the remainder of 10-system review is unremarkable, other than patient has some mild confusion a fter receiving Ativan. PHYSICAL EXAMINATION: VITAL SIGNS: Temperature maximum 38.9, temperature current 37.7, heart rate 1 05, respiratory rate 25, blood pressure 108/57, oxygen saturation 95% on 15 L. GENERAL: Patient is ill-appearing with mild confusion and some difficulty with clear articulation. He does respond appro priately to questions. HEENT: There is no scleral icterus, conjunctival injection, or conjunctival petechiae. Oropharynx shows dry mucous membranes, without thrush. There is no nasal discharge. The re is no tenderness over the sinuses. NECK: Supple, without palpable lymphadenopathy or thyromegaly . CHEST: There are coarse breath sounds bilaterally; the respiratory effort is increased. CARDIOVA SCULAR: Tachycardic, without murmurs, gallops, or rubs. ABDOMEN: There is a firm, approximately gr apefruit size mass extending from the suprapubic region to the umbilical region, with mild tenderness . There is no overlying erythema. Bowel sounds are present. MUSCULOSKELETAL: The left lower extre mity shows intact staple line, without erythema, tenderness or drainage. NEUROLOGIC: Patient is gonzalo rt, with some difficulty with articulation, as outlined above. His notes this is post Ativan ad ministration. He otherwise follows commands. Left-sided footdrop. LYMPHATICS: No cervical, suprac lavicular, or inguinal nodes palpable. SKIN: There are no stigmata of endocarditis. There are occa sional ecchymoses over the upper extremities. There are no other skin rashes noted. LABORATORY DATA: White blood cell count 20.9, hematocrit 24.6, platelets 163; at time of presentatio n, patient's white blood cell count was 4.9 with 48% bands. Serum creatinine is 1.6, albumin 2.0, T 39, ALT 34, alkaline phosphatase 66, bilirubin 1.1. INR is 2.2. Lactic acid is 2.4 after initial presentation at 13.6. Procalcitonin is 131.9. Urinalysis shows 50-182 red blood cells and white blo od cells. Blood cultures with 2 of 2 sets showing gram-negative rods. Respiratory pathogen panel as outlined previously. Urine culture is pending. Abdominal ultrasound shows evidence of blood clot w ithin the bladder, without evidence of hydronephrosis. Chest x-ray shows a left lower lobe infiltrat e. IMPRESSION: 1. Septic shock due to Escherichia coli bacteremia, likely of urinary etiology based on recent Tubbs catheter use and presence of hematoma within bladder: We will change ceftriaxone to ertapenem based on isolation of Escherichia coli in event this is an extended-spectrum beta-lactamase producing orga nism given the severity of his illness. Agree with plans for possible operative bladder irrigation, which may facilitate resolution of sepsis. Await susceptibility profile on Escherichia coli isolate. 2. Left lower lobe pneumonia: The patient has a respiratory pathogen panel showing rhinovirus/enter ovirus; not clear this is actually contributing to patient's pneumonia based on relatively more focal consolidation rather than diffuse pneumonitis as is more typical for viral etiology. In the setting of myeloma, he is at risk for pneumonia due to pathogens such as Streptococcus pneumoniae. Consider ation for Escherichia coli pneumonia with recent hospitalization is present, although suspect more li antonio that is of urinary etiology. 3. Acute renal insufficiency due to sepsis. RECOMMENDATIONS: 1. Ertapenem 1 g IV q.24 hours (creatinine clearance is slightly greater than 30). 2. Continue azithromycin. 3. Discontinue ceftriaxone. 4. Will check urine Legionella and Streptococcus pneumoniae antigens. 5. Await susceptibility profile on E coli. 6. Agree with plans for ongoing urologic assessment of bladder hematoma, particularly in light of pr ogressive distention. 7. Continued supportive care for septic shock as is being performed in ICU. 8. Thank you for this consultation. We will continue to follow the patient with you. /[id number]/MODL
--- NOTE | 2017-11-16 11:15 | PDANEPAE ---
ANE History of Present Illness 72 yo for cysto clot evac septis/pnuemonia pending resp failure. probable post op vent, family/pt aware ANE Past Medical History - Cardiovascular History Hx Hypertension: No Hx Arrhythmias: Yes Hx Chest Pain: No Hx Coronary Artery / Peripheral Vascular Disease: No Hx CHF / Valvular Disease: No Hx Palpitations: No - Pulmonary History Hx Oxygen in Use at Home: No Hx Sleep Apnea: No - Endocrine History Hx Diabetes: No - Chronic Pain History Chronic Pain: No ANE Review of Systems Review of Systems: ANE Patient History - Allergies Allergies/Adverse Reactions: No Known Allergies Allergy (Unverified 11/15/17 10:41) - Home Medications Home Medications: Acyclovir [Zovirax 400 mg (*)] 400 mg PO BID 11/15/17 [Last Taken 11/15/17] Albuterol [Proventil Inhaler HFA (*)] 1 - 2 puffs IH DAILY PRN 11/15/17 [Last Taken Unknown] Dexamethasone [Decadron 4 MG (*)] 20 mg PO DAILY PRN 11/15/17 [Last Taken ] LORazepam [Ativan (*)] 0.5 mg PO Q8HRS PRN 11/15/17 [Last Taken 11/15/17] Montelukast Sodium [Singulair 10 mg (*)] 10 mg PO DAILY 11/15/17 [Last Taken ] Multivitamins [Multivitamin (*)] 1 each PO DAILY 11/15/17 [Last Taken 11/15/17] Ondansetron HCl [Zofran] 8 mg PO Q8HRS PRN 11/15/17 [Last Taken 11/14/17 21:00] Rivaroxaban [Xarelto 10mg (*)] 10 mg PO DAILY 11/15/17 [Last Taken 11/15/17] traMADol [Ultram 50 mg (*)] 50 mg PO Q4 PRN 11/15/17 [Last Taken Unknown] - Smoking Hx Smoking Status: Never smoked ANE Labs/Vital Signs - Labs Result Diagrams: 11/16/17 10:55 11/16/17 04:00 - Vital Signs Blood Pressure: 130/66 Heart Rate: 97 Respiratory Rate: 23 O2 Sat (%): 98 Height: 5 ft 11 in Weight: 59 kg ANE Physical Exam - Airway Mallampati Score: Class 2 Mouth exam: normal dental/mouth exam - Pulmonary Pulmonary: respiratory distress - Cardiovascular Cardiovascular: regular rate and rhythym - ASA Status ASA Status: III, E ANE Anesthesia Plan Anesthesia Plan: general endotracheal anesthesia (post op vent)
[2017-11-16] MEDS ORDERED: LORazepam 2 MG/ML INJ IVP ONE (11:17)
[2017-11-16] MEDS ORDERED: PROPOFOL 200 MG/20 ML VIAL ONE (11:19)
[2017-11-16] MEDS ORDERED: fentaNYL 250 MCG/5 ML INJ ONE (11:19)
--- NOTE | 2017-11-16 11:30 | SOAPPROG ---
SOAP Progress Note Assessment/Plan: Assessment/Plan: 72 man w progressive aggressive IgA nonsecretory multiple myeloma who p/w septic shock yesterday 1. Sepitic shock - E. coli bacteremia from urinary source (skinner 2 weeks ago), PNA, Enterovirus IVF and IV abx ID following remains critically ill 2. Urinary retention - due to large bladder hematoma possible occurred as result of Skinner trauma on Xarelto OR today to irrigate bladder as unable to void 3. Syncope - due to #1 less likely from thromboembolism DVT LE negative 4. IgA MM - s/pC1D3 kelly/velcade/dex will hold this week's dose of Velcade do to #1 5. Anemia - multifactorial monitor need for PRBCs daratumumab directly binds to CD38 on reagent red cells used in the blood bank, causing the false positive antibody screens Blood bank is aware and trying to find compatible blood will update Dr Irwin 11/16/17 11:33 Subjective: large bladder hematoma discovered overnight pt w E coli bacteremia Objective: Vital Signs Temp Pulse Resp BP Pulse Ox 37.9 C 97 23 H 130/66 H 98 11/16/17 11:00 11/16/17 11:15 11/16/17 11:15 11/16/17 11:15 11/16/17 11:15 Microbiology 11/15/17 13:07 Respiratory Panel (PCR) - Final Nasal, Sinus - Swab Human Rhinovirus/Enterovirus Laboratory Results 11/16/17 10:55 11/16/17 04:00 11/15/17 11/16/17 11/17/17 05:59 05:59 05:59 Intake Total 4045 Output Total 4400 Balance -355 PT 24.4 SEC (12.0-15.0) H D 11/16/17 04:00 INR 2.19 (0.83-1.16) H 11/16/17 04:00 Not examined today was leaving to go to OR when I arrived ICD10 Worksheet Patient Problems: Problems Problem Status Onset Pneumonia Acute Sepsis Acute
[2017-11-16] MEDS ORDERED: AMIODARONE HCL 150 MG/3 ML VIAL ONE (11:39)
[2017-11-16] MEDS ORDERED: NA BICARBONATE 50 MEQ/50 ML VIAL ONE (12:57)
--- NOTE | 2017-11-16 13:02 | POSTOPPROG ---
Post Op Note Date of Operation: 11/16/17 Surgeon: Denny Mtz Anesthesia: GET(General Endotracheal) Pre-op Diagnosis: retentioin Post-op Diagnosis: same, large bladder stone and clot Procedure: cystolithpaxy large stone, evac large clot, cauterize varices of bladder ba Inf/Abcess present in the surg proc area at time of surgery?: No EBL: clot evacuated Complications: none Specimen(s): sent, dictate op note
--- NOTE | 2017-11-16 13:16 | GOP ---
[f rep st] OPERATIVE REPORT DATE OF OPERATION: 11/16/2017 SURGEON: Denny Mtz MD ANESTHESIA: General. PREOPERATIVE DIAGNOSIS: Urinary retention with urinary clot retention. POSTOPERATIVE DIAGNOSIS: Large bladder calculus with urinary clot retention. PROCEDURE PERFORMED: Cystolitholapaxy, large stone evacuation of 500 cc of dense clot and fulguration of bladder varices. FINDINGS: DESCRIPTION OF PROCEDURE: Underwent general anesthesia and that will be well documented in the anesthesia record. Then at that point, he was prepped and draped in normal sterile fashion in dorsal lithotomy position. His urethra was normal. The bladder was full of clot and his bladder was distended up to his umbilicus. I was able to eventually evacuate the urine and fluid out of his bladder. Then, at that point, he had dense clot, was able with manipulation evacuate the clot and then in the middle of the clot was a large spiculated stone and I fragmented it with a cysto-lithotrite and fragmented. Stones removed via the cystoscope. There was no perforation to the bladder. There was multiple varices at the base of the bladder and trigone area that were bleeding and those were fulgurated with the bipolar button. At the end of the procedure, there was no perforation of the bladder, no tumors. The clot was evacuated. Prostate was open and there was no bleeding sites and at that point , a 24 three-way catheter passed the bladder, 30 cc balloon inflated, and he will be transferred to postoperatively to the ICU for care. /[id number]/MODL MTDD
[2017-11-16] MEDS ORDERED: ALBUMIN 5% 500 ML BOTTLE IV ONE (13:27)
--- NOTE | 2017-11-16 13:31 | CPEKG ---
Heart Rate: 90 RR Interval: 667 P-R Interval: 156 QRSD Interval: 88 QT Interval: 376 QTC Interval: 460 P Rogers: 77 QRS Rogers: -19 T Wave Rogers: 87 EKG Severity - ABNORMAL ECG - EKG Impression: SINUS RHYTHM EKG Impression: PROBABLE LEFT ATRIAL ABNORMALITY EKG Impression: BORDERLINE LEFT AXIS DEVIATION EKG Impression: BORDERLINE R WAVE PROGRESSION, ANTERIOR LEADS EKG Impression: BORDERLINE T ABNORMALITIES, ANT-LAT LEADS Electronically Signed By: Uri Arias 17-Nov-2017 08:27:10
[2017-11-16] MEDS ORDERED: AMIODARONE HCL 150 MG/100 ML BAG (1.5 MG/ML) IV ONE (13:33)
--- NOTE | 2017-11-16 13:47 | CPEKG ---
Heart Rate: 153 RR Interval: 392 QRSD Interval: 70 QT Interval: 300 QTC Interval: 479 QRS Hallie: 42 T Wave Hallie: -47 EKG Severity - ABNORMAL ECG - EKG Impression: ATRIAL FIBRILLATION WITH RAPID V-RATE EKG Impression: LOW VOLTAGE IN FRONTAL LEADS EKG Impression: REPOLARIZATION ABNORMALITY, PROB RATE RELATED Electronically Signed By: Uri Arias 17-Nov-2017 08:27:00
[2017-11-16] MEDS ORDERED: AMIODARONE HCL 200 ML IV SCH (14:00)
[2017-11-16] MEDS ORDERED: DILTIAZEM 125 MG in D5W 125 ML IV SCH (14:00)
[2017-11-16] MEDS ORDERED: AMIODARONE HCL 100 ML IV ONE (14:00)
--- NOTE | 2017-11-16 15:12 | CPIP ---
[f rep st] INVASIVE CARDIAC PROCEDURE PROCEDURE: DC Cardioversion. The patient underwent DC cardioversion for atrial fibrillation with a rapid ventricular response in [facility] intensive care unit. The patient had been cardioverted earlier and converted to normal sinus rhythm. Subsequently, he con verted back to atrial fibrillation with a rapid ventricular response and relative hypotension. He underwent DC cardioversion with synchronized shock at 360 watt seconds. Converted to sinus rhythm . At this time, he was receiving amiodarone, full anticoagulation and has maintained normal sinus [facility]. /[id number]/MODL
--- NOTE | 2017-11-16 15:17 | CPIP ---
[f rep st] INVASIVE CARDIAC PROCEDURE PROCEDURE: Cardioversion. DESCRIPTION OF PROCEDURE: The patient was in rapid atrial fibrillation with a heart rate of 155. He was hypotensive. He is intubated in the intensive care unit. He was cardioverted with 360 watt seconds, synchronized cardioversion to normal sinus rhythm. There were no complications. His blood pressure improved when he was in sinus rhythm at 80 beats per minute, and we have turned down the norepinephrine in half. The patient is tolerating it well. The patient was fully anticoagulated. /[id number]/MODL
[2017-11-16] MEDS ORDERED: PROTOCOL CALCIUM 1 DOSE IV PRN (15:22)
[2017-11-16] MEDS ORDERED: PROTOCOL MAGNESIUM 1 DOSE IV PRN (15:22)
[2017-11-16] MEDS ORDERED: PROTOCOL POTASSIUM 1 DOSE MISC PRN (15:22)
[2017-11-16] MEDS ORDERED: CALCIUM GLUCONATE 50 ML IV ONE (15:36)
[2017-11-16] MEDS ORDERED: fentaNYL 100 MCG/2 ML INJ IVP ONE (15:40)
[2017-11-16] MEDS ORDERED: MIDAZOLAM 2 MG/2 ML VIAL IVP ONE (15:41)
--- NOTE | 2017-11-16 16:56 | ECHO ---
[email or web address] [address] [address] Main: [phone] Fax: Transthoracic Echocardiogram Name: RICARDO PEACE MR#: [id number] Study Date: 11/16/2017 Study Time: 01:41 PM Date of : 1945 Age: 72 year(s) Height: ( ) Weight: ( ) BSA: Gender: Male Examination: Limited Echo Indication: STAT post op echo to assess LVFX and for pericardial effusion Image Quality: Adequate Contrast: Requested by: Yady Alonzo BP: / Heart Rate: Rhythm: Indication: STAT post op echo to assess LVFX and for pericardial effusion Procedure Staff Mobile Crane Operator: Nellie Camarillo [facility] [place] Reading Physician: Requesting Provider: Measurements: Chambers Valvular Assessment AV/MV Valvular Assessment TV/PV Normal Normal Normal Name Value Range Name Value Range Name Value Range IVSd (2D): 0.9 cm (0.6 cm-1.1 TR Vmax: 3.71 mm/s ( - ) cm) TR PGmax: 55 mmHg ( - ) LVDd (2D): 4.8 cm (4.2 cm-5.9 syst. PAP: 65 mmHg ( - ) cm) LVDs (2D): 3.8 cm (2.1 cm-4 cm) LVPWd (2D): 0.9 cm (0.6 cm-1 cm) LVEF (2D): 42 (>=54 %) Continued Measurements: Valvular Assessment TV/PV Name Value CVP (est.): 10 mmHg Findings: Left Ventricle: Normal size left ventricle. Mildly reduced systolic LV function. EF is 42 %. Mid anteroseptal hypokinesis. Right Ventricle: Mildly dilated right ventricle. Normal RV function. Mitral Valve: Mild mitral valve regurgitation is present. Patient: RICARDO PEACE Study Date: 11/16/2017 Page 1 of 2 01:41 PM Aortic Valve: Mild aortic valve regurgitation is present. Tricuspid Valve: Moderate to severe tricuspid valve regurgitation. Right ventricular systolic pressure measures 65mmHg. The pulmonary artery pressure is moderately to severely increased. IVC: The IVC is dilated. Pericardium: Trivial pericardial effusion. (No Signature Object) Patient: RICARDO PEACE Study Date: 11/16/2017 Page 2 of 2 01:41 PM [id number]
[2017-11-16] MEDS: PROPOFOL/EMULSION 100 ML IV SCH (17:16)
[2017-11-17] MEDS: ASCORBIC ACID 1,500 MG in D5W 100 ML IV SCH ×4 (01:42→19:52)
[2017-11-17] MEDS: THIAMINE HCL 200 MG in NS 100 ML IV SCH ×2 (01:42→13:18)
[2017-11-17] MEDS: NOREPINEPHRINE BITARTRATE 4 MG in NS 500 ML IV SCH ×3 (03:07→22:39)
[2017-11-17] MEDS: VASOPRESSIN 25 UNIT in NS 250 ML IV SCH ×2 (03:07→23:38)
[2017-11-17] MEDS: D5W NS 1,000 ML IV SCH ×2 (03:18→18:21)
[2017-11-17 04:38] LABS: PLATELET COUNT 96 10^3/uL (150-400)
[2017-11-17] MEDS: PROPOFOL/EMULSION 100 ML IV SCH ×2 (07:09→22:39)
[2017-11-17] MEDS: HYDROCORTISONE 100 MG/2 ML VIAL IVP SCH ×3 (07:09→22:38)
[2017-11-17] MEDS ORDERED: CALCIUM GLUCONATE 50 ML IV ONE ×2 (07:23→10:54)
[2017-11-17] MEDS ORDERED: MAGNESIUM SULF 1 GM/DEXTROSE 100 ML IV ONE (07:24)
[2017-11-17] MEDS: AZITHROMYCIN IV 500 MG in NS 250 ML IV SCH (08:00)
[2017-11-17] MEDS: ERTAPENEM 1 GM VIAL IV SCH (08:00)
--- NOTE | 2017-11-17 09:10 | SOAPPROG ---
SOAP Progress Note Assessment/Plan: Assessment: Hematuria -- resolved. Discussed with and plans and risks outlined Plan: DC CBI and continue skinner drainage til pt is OOB 11/17/17 09:08 Subjective: on vent, visited with Objective: Vital Signs Temp Pulse Resp BP Pulse Ox 37.6 C 61 22 H 100/45 L 100 11/17/17 08:00 11/17/17 09:00 11/17/17 09:00 11/17/17 09:00 11/17/17 09:00 Laboratory Results 11/17/17 04:00 11/17/17 04:00 11/16/17 11/17/17 11/18/17 05:59 05:59 05:59 Intake Total 4045 5496.5 Output Total 4400 3075 Balance -355 2421.5 PT 24.4 SEC (12.0-15.0) H D 11/16/17 04:00 INR 2.19 (0.83-1.16) H 11/16/17 04:00 Physical Exam - Physical Exam General Appearance: other (on vent) Male Genitalia: other (cath draining clear irrigant) ICD10 Worksheet Patient Problems: Problems Problem Status Onset Pneumonia Acute Sepsis Acute
--- NOTE | 2017-11-17 10:00 | PDINTPN ---
Still Operator Brandy Progress Note Assessment/Plan: Assessment: Septic Shock: Had hypotension yesterday, improved today. BP OK on NE at 8. E.Coli in blood. Meeting goals of sepsis protocol AF: Had AF with RVR/arrest, CPR for 1 minute during surgery yesterday, followed by further AF/RVR throughout the day yesterday. Converted with DCCV 3-4x, and amiodorone bolus/gtt. In NSR for last 18 hours. E. Coli bacteremia: Likely Urinary source. On Ertapenem. E. Coli resistances now show gomez-sensitive. ID following. Pneumonia: Enterovirus on respiratory panel. ? if this is the pathogen and/or he has ARDS, although infiltrates are asymmetric Acute respiratory failure: Intubated for surgery, and has remained intubated due to HD instability, continued metabolic acidosis. TAVON: Likely due to sepsis as well as obstruction from bladder hematoma Bladder outlet obstruction due to hematoma/stone: Hematoma likely caused by anticoagulation. Initially did well with bladder irrigation, but then output stopped. Went to OR yesterday with removal of clot/stone. CBI irrigation with clear return. Anemia: Likely due to volume expansion, bladder bleeding, pre-existing anemia from surgery 2 weeks ago and MM. Complicated by inability to crossmatch due to undetermined factor, possibly related to chemotherapy. Counts down yesterday, transfused x 1 without incident, Hgb now stable at 7 Thrombocytopenia:Plt falling, 93k this morning Hypernatremia: Continues to trend up. Multiple Myeloma: S/P chemotherapy earlier this week. S/P stabilization of leg pathologic lesion 2 weeks ago. Hypocalcemia Plan: Continue Ertapenem per ID Place feeding tube, start TF and free H2O. Continue sepsis protocol. Stop CBI per Will keep intubated at least until tomorrow. Reduce vent rate to to alkalosis. 35 minutes CC time, managing hypotension requiring pressors, hypoxemic respiratory failure requiring mechanical ventilation 11/17/17 10:37 11/17/17 10:53 Subjective: Intubated, sedated. Objective: Vital Signs Temp Pulse Resp BP Pulse Ox 37.6 C 61 22 H 100/45 L 100 11/17/17 08:00 11/17/17 09:00 11/17/17 09:00 11/17/17 09:00 11/17/17 09:00 Laboratory Results 11/17/17 04:00 11/17/17 04:00 11/16/17 11/17/17 11/18/17 05:59 05:59 05:59 Intake Total 4045 5496.5 Output Total 4400 3075 Balance -355 2421.5 PT 24.4 SEC (12.0-15.0) H D 11/16/17 04:00 INR 2.19 (0.83-1.16) H 11/16/17 04:00 Microbiology 11/15/17 10:30 Blood Blood Panel (PCR) - Final Escherichia Coli 11/15/17 10:30 Blood Blood Culture - Preliminary 11/15/17 10:30 Blood Escherichia Coli Physical Exam - Physical Exam General Appearance: alert, no apparent distress EENT: normal ENT inspection Neck: normal inspection Respiratory: lungs clear, normal breath sounds Cardiac/Chest: regular rate, rhythm, No edema Abdomen: normal bowel sounds, non-tender Skin: normal color, warm/dry Extremities: normal inspection Neuro/Psych: No alert, No normal mood/affect, No oriented x 3 ICD10 Worksheet Patient Problems: Problems Problem Status Onset Pneumonia Acute Sepsis Acute
--- NOTE | 2017-11-17 11:49 | PCMIDPN ---
Assessment/Plan: Assessment: septic shock secondary to e. coli bacteremia from what is felt to be a source. The isolate is gomez-sensitive. Currently he is being treated with ertapenem secondary to the issue with his LLL infiltrate. LLL infiltrate - certainly this infiltrate is new as the PET scan in October did not show any issues. It is unlikely directly related to the primary propsed etiology of the tract and the e. coli. Working theory at present is that this represents aspiration pneumonia that may be secondary. This supports continuing the ertapenem for broad coverage. His clinical status is guarded at present. Will need another couple days of support prior to being able to determine the direction of his disease. Plan: 1) Continue IV ertapenem. 2) Discontinue IV azithromycin. 3) Follow up repeat blood cultures --- although gram negative bacteremia, this is a special situation and not routine presentation or etiology. 11/17/17 17:42 11/17/17 17:47 Subjective: Patient remains intubated and sedated. On multiple pressors. Family present in room. Objective: ertapenem # 2 azithromycin # 2 Vital Signs Temp Pulse Resp BP Pulse Ox 37.6 C 63 22 H 104/44 L 100 11/17/17 08:00 11/17/17 11:00 11/17/17 11:00 11/17/17 11:00 11/17/17 11:00 Laboratory Results 11/17/17 04:00 11/17/17 04:00 11/16/17 11/17/17 11/18/17 05:59 05:59 05:59 Intake Total 4045 5496.5 Output Total 4400 3075 Balance -355 2421.5 - Physical Exam General Appearance: WD/WN, no apparent distress, thin, No alert Respiratory: lungs clear, crackles (LLL), other (mech vent), No normal breath sounds Cardiac/Chest: regular rate, rhythm, No tachycardia Extremities: No normal inspection Skin: normal color, warm/dry, No rash ICD10 Worksheet Patient Problems: Problems Problem Status Onset Pneumonia Acute Sepsis Acute
--- NOTE | 2017-11-17 14:21 | SOAPPROG ---
SOAP Progress Note Assessment/Plan: Assessment/Plan: 72 man w progressive aggressive IgA nonsecretory multiple myeloma who p/w septic shock 1. Septic shock - E. coli bacteremia from urinary source (skinner 2 weeks ago), PNA, Enterovirus Pressors, IVF and IV abx ID following remains critically ill 2. Urinary retention - due to large bladder hematoma likely occurred as result of Skinner trauma on Xarelto OR 11/16 for clot removal and irrigation clean urine outpt at this time 3. Syncope - due to #1 less likely from thromboembolism DVT LE negative 4. IgA MM - s/pC1D4 kelly/velcade/dex will hold this week's dose of Velcade do to #1 continue stress dose steroids 5. Anemia - multifactorial monitor need for PRBCs daratumumab directly binds to CD38 on reagent red cells used in the blood bank, causing the false positive antibody screens using least incompatible blood as needed 6. Thrombocytopenia - multifactorial no further bleeding will update Dr Irwin 11/16/17 11:33 11/17/17 14:18 11/17/17 14:21 Subjective: Intubated, sedated is making urine Objective: Vital Signs Temp Pulse Resp BP Pulse Ox 37.6 C 64 22 H 122/55 H 100 11/17/17 08:00 11/17/17 14:02 11/17/17 14:02 11/17/17 13:00 11/17/17 14:02 Laboratory Results 11/17/17 04:00 11/17/17 11:55 11/16/17 11/17/17 11/18/17 05:59 05:59 05:59 Intake Total 4045 5496.5 Output Total 4400 3075 Balance -355 2421.5 PT 24.4 SEC (12.0-15.0) H D 11/16/17 04:00 INR 2.19 (0.83-1.16) H 11/16/17 04:00 Gen - - intubated, sedated CV - RRR Chest - coarse BS anteriorly Ext - no sig edema ICD10 Worksheet Patient Problems: Problems Problem Status Onset Pneumonia Acute Sepsis Acute
[2017-11-17] MEDS: POTASSIUM Cl (KCl) 100 ML IV SCH ×3 (14:27→16:05)
--- NOTE | 2017-11-17 15:00 | ASMTCMCOM ---
CM Note CM Note Notes: Patient is intubated and sedated. He is followed by urology, oncology, pediatric acute care unit nurse, and infectious disease services. His prognosis is guarded. He has a supportive and involved family who will help guide discharge planning. Case Management will follow. Date Signed: 11/17/2017 02:59 PM Electronically Signed By:Jocelyne Lemus RN
--- NOTE | 2017-11-17 16:24 | HOSPPROG ---
Hospitalist Progress Note Assessment/Plan: #Septic shock: multiple sources. E Coli bacteremia, PNA, Entero/rhinovirus, acute blood loss -wean Levophed as tolerated, IV steroids, ascorbic acid, Albumin #E coli bacteremia: Invanz. Urinary source with bladder stones/hematoma #Acute blood loss anemia: large bladder hematoma: Likely related to skinner for surgery early this month while on Xarelto -stones and clot evacuated by Dr Mtz 11/16, transfused 1 unit RBC #Bladder obstruction: due to hematoma, which has been evacuated #MM: chemo on hold #Recent stabilization of plasmocytoma. Surgical site healing well. staple can be removed #Chronic steroid use: stress-dose steroids #Cardiac arrest: went into rapid a fib in OR, has ROSC with CPR #Atrial fibrillation with RVR: cardioverted x 3. Amiodarone gtt. Now in NSR #CAP: Azitho, Invanz. Strep, Legionella pending #Acute hypoxic resp failure: intubated during surgery, will wean as tolerated #TAVON: due to shock, hypotension #Hypernatremia: free H20 flushes #Diet: start TFs #Disp: critically ill requiring ICU for pressors, IV amiodarone. D/w Dr. Gaam and Jorge Martines with Urology Critical care time spent: 45 min bedside with pt labs review and consulting with Urology Subjective: NSR overnight Objective: Vital Signs Temp Pulse Resp BP Pulse Ox 38.3 C H 62 22 H 126/54 H 100 11/17/17 16:00 11/17/17 16:00 11/17/17 16:00 11/17/17 16:00 11/17/17 16:00 Laboratory Results 11/17/17 04:00 11/17/17 11:55 11/16/17 11/17/17 11/18/17 05:59 05:59 05:59 Intake Total 4045 5496.5 Output Total 4400 3075 Balance -355 2421.5 PT 24.4 SEC (12.0-15.0) H D 11/16/17 04:00 INR 2.19 (0.83-1.16) H 11/16/17 04:00 - Time Spent With Patient Time Spent with Patient: greater than 35 minutes Time Spent with Patient: Greater than 35 minutes spent on this patients care, greater than 50% of time spent counseling, educating, and coordinating care regarding the above mentioned plan. - Physical Exam Eyes: PERRL Ears, Nose, Mouth, Throat: other (intubated) Cardiovascular: regular rate and rhythym, edema Respiratory: no respiratory distress Gastrointestinal: normoactive bowel sounds, soft, non-tender abdomen Genitourinary: skinner in urethra (no hematuria) Skin: warm Musculoskeletal: other (left leg incision stapled, no drainage or redness) Neurologic: other (sedated) Psychiatric: interacting appropriately ICD10 Worksheet Patient Problems: Problems Problem Status Onset Pneumonia Acute Sepsis Acute
[2017-11-17] MEDS: INSULIN REGULAR HUMAN 100 UNIT/ML UNIT SC SCH ×2 (18:21→23:46)
[2017-11-17] MEDS ORDERED: POTASSIUM Cl (KCl) 50 ML IV ONE (19:42)
[2017-11-18] MEDS: ASCORBIC ACID 1,500 MG in D5W 100 ML IV SCH ×4 (01:48→20:49)
[2017-11-18] MEDS: THIAMINE HCL 200 MG in NS 100 ML IV SCH ×2 (01:48→13:51)
[2017-11-18] MEDS ORDERED: POTASSIUM Cl (KCl) 50 ML IV ONE ×3 (02:47→21:42)
[2017-11-18 05:32] LABS: PLATELET COUNT 47 10^3/uL (150-400)
[2017-11-18] MEDS: D5W NS 1,000 ML IV SCH (06:19)
[2017-11-18] MEDS: INSULIN REGULAR HUMAN 100 UNIT/ML UNIT SC SCH ×3 (06:23→18:07)
[2017-11-18] MEDS: HYDROCORTISONE 100 MG/2 ML VIAL IVP SCH ×3 (06:23→22:51)
[2017-11-18] MEDS ORDERED: CALCIUM GLUCONATE 50 ML IV ONE (07:40)
[2017-11-18] MEDS: ERTAPENEM 1 GM VIAL IV SCH (08:17)
[2017-11-18] MEDS: VASOPRESSIN 25 UNIT in NS 250 ML IV SCH (08:17)
--- NOTE | 2017-11-18 09:58 | PCMIDPN ---
Assessment/Plan: #Sepsis due to bacteremia: Still on 2 pressors and vented, although ventilator settings are minimal. #Ecoli bacteremia: Still suspicious for urinary source despite negative urine culture --dc ertapenem --start unasyn, tomorrow - already got dose today --ertapenem slightly higher rate of thrombocytopenia than Unasyn # Aspiration PNA, L infiltrate, PCT 131, PET scan reportedly cold in this area --change ertapenem Unasyn # ARF improving, creatinine 1.1 # Thrombocytopenia, new: discussed w hospitalist, DC ertapenem as above, but doubt it is causing thrombocytopenia # Multiple Myeloma, relapsed : last chemo 11/14 Abx: #4 (overlap of erta/ceftriaxone) ertapenem 1gm IV daily #3 S/p 2 days Ceftriaxone micro 11/15 blood cx e coli 11/15 Ucx neg 11/17 blood cx (2) pending Subjective: still on 2 pressors difficult to transfuse due to matching issue Objective: Vital Signs Temp Pulse Resp BP Pulse Ox 37.5 C 56 L 22 H 125/49 H 100 11/18/17 08:00 11/18/17 09:00 11/18/17 09:00 11/18/17 09:00 11/18/17 09:00 Laboratory Results 11/18/17 04:58 11/18/17 04:58 11/17/17 11/18/17 11/19/17 05:59 05:59 05:59 Intake Total 5496.5 5529 Output Total 3075 2325 Balance 2421.5 3204 - Physical Exam General Appearance: cachetic EENT: pale conjunctiva, ET Tube, other (OGT) Respiratory: coarse breath sounds Cardiac/Chest: regular rate, rhythm, No systolic murmur Extremities: pedal edema Abdomen: non-tender, soft Male Genitalia: skinner (no blood), scrotal edema Skin: pallor, No rash Neuro/Psych: other (sedated) - Line/s RUE PICC Lines: No drainage, No erythema - Time Spent With Patient Time Spent with Patient: greater than 35 minutes (reviewed plan of antibiotic changes with family at bedside, care coordinated with Dr. Gama and Dr. Link) Time Spent with Patient: Greater than 35 minutes spent on this patients care, greater than 50% of time spent counseling, educating, and coordinating care regarding the above mentioned plan. ICD10 Worksheet Patient Problems: Problems Problem Status Onset Pneumonia Acute Sepsis Acute
--- NOTE | 2017-11-18 10:10 | HOSPPROG ---
Hospitalist Progress Note Assessment/Plan: DIAGNOSES: #Septic shock: multiple sources including lungs and urinary tract * still on some pressor but have decreased that support at this time * Continued respiratory failure, improving renal failure but no new organ failure #Acute hypoxic resp failure * Still on mechanical ventilator, tolerating some CPAP but too weak for extubation at this point #E coli bacteremia: * Invanz discontinued due to thrombocytopenia, now on Unasyn #Acute blood loss anemia * large bladder hematoma, ? if related to skinner for surgery early this month while on Xarelto * stones and clot evacuated by Dr Mtz 11/16, * transfused 1 unit RBC 11/17 * Anemia worse today at 6.7, attempting to get further blood for transfusion but he has antibody abnormalities induced by cancer medication # acute thrombocytopenia, worsening daily * Down to 47,000 today; ? If caused by his [place] or otherwise, he is not on heparin due to bleeding #Cardiac arrest: went into rapid a fib in OR, has ROSC with CPR #Atrial fibrillation with RVR: cardioverted x 3. Amiodarone gtt. Now in NSR #TAVON: due to shock, hypotension * Currently resolved with good urine output #Bladder obstruction: due to hematoma, which has been evacuated #CAP: Azitho, Invanz. Strep, Legionella pending #MM: chemo on hold #Recent stabilization of plasmocytoma. Surgical site healing well. staple can be removed #Chronic steroid use: stress-dose steroids PLANS: -continue antibiotics, the most recent blood cultures pending -continue pressor support and fluid support -continue mechanical ventilator, continue attempts to wean from that -continue tube feedings for now -attempting to get a compatible unit of blood for transfusion; continue follow blood counts closely -follow-up platelets closely, Invanz discontinued case that is the cause of low platelets -DVT prophylaxis at this point is mechanical due to his bleeding issues and low platelets In addition to hospitals rounds today I saw this patient on interdisciplinary rounds and plan I reviewed in detail with Dr. Caleb Kang today SUBJECTIVE: Patient on vent, with some sedation but is awake enough to shake his head yes and no Shake his head yes when asked if he is comfortable, too tired to get much in the way of other answers at this point OBJECTIVE Vitals reviewed: Blood pressures in reasonable range right now still on pressor , heart rate good, respirations per ventilator, temperature 37.3 degrees Bead Cutter, my review: Sinus Exam: Awake but largely sedated, ET tube in good position and well secured, IV site looks good, Skinner in place with clear yellow urine skin warm dry color ok resps on CPAP on vent right now, week but not very tachypneic lungs very diminished but clear BSs heart regular abd soft mildly distended, bowel sounds present limbs warm, still significant edema of legs iv site ok Laboratory data: I reviewed all laboratory dated today. Most impressive is his continued decrease in hemoglobin and the marked decreased platelets today Microbiology data: Most recent blood cultures from yesterday still pending no growth Objective: Vital Signs Temp Pulse Resp BP Pulse Ox 37.5 C 53 L 20 125/50 H 100 11/18/17 08:00 11/18/17 10:00 11/18/17 10:00 11/18/17 10:00 11/18/17 10:00 Laboratory Results 11/18/17 04:58 11/18/17 04:58 11/17/17 11/18/17 11/19/17 06:59 06:59 06:59 Intake Total 5496.5 5529 Output Total 3075 2325 Balance 2421.5 3204 PT 24.4 SEC (12.0-15.0) H D 11/16/17 04:00 INR 2.19 (0.83-1.16) H 11/16/17 04:00 - Time Spent With Patient Time Spent with Patient: greater than 35 minutes Time Spent with Patient: Greater than 35 minutes spent on this patients care, greater than 50% of time spent counseling, educating, and coordinating care regarding the above mentioned plan. ICD10 Worksheet Patient Problems: Problems Problem Status Onset Pneumonia Acute Sepsis Acute
--- NOTE | 2017-11-18 11:07 | SOAPPROG ---
SOAP Progress Note Assessment/Plan: Assessment: Hematuria -- resolved. Discussed with and plans and risks outlined Plan: DC CBI and continue skinner drainage til pt is OOB 11/18/17 11:06 Subjective: on vent, responds to Objective: Vital Signs Temp Pulse Resp BP Pulse Ox 37.5 C 53 L 20 125/50 H 100 11/18/17 08:00 11/18/17 10:00 11/18/17 10:00 11/18/17 10:00 11/18/17 10:00 Laboratory Results 11/18/17 04:58 11/18/17 04:58 11/17/17 11/18/17 11/19/17 05:59 05:59 05:59 Intake Total 5496.5 5529 Output Total 3075 2325 Balance 2421.5 3204 PT 24.4 SEC (12.0-15.0) H D 11/16/17 04:00 INR 2.19 (0.83-1.16) H 11/16/17 04:00 Physical Exam - Physical Exam General Appearance: other (on vent) Abdomen: soft Male Genitalia: other (cath draining well, no problems) ICD10 Worksheet Patient Problems: Problems Problem Status Onset Pneumonia Acute Sepsis Acute
--- NOTE | 2017-11-18 11:19 | PDINTPN ---
Criminal Psychologist Progress Note Assessment/Plan: Assessment: Septic Shock: Had hypotension 11/16, improved last 2 days, weaning pressors. E.Coli in blood. Meeting goals of sepsis protocol AF: Had AF with RVR/arrest, CPR for 1 minute during surgery 11/16, followed by further AF/RVR throughout the day yesterday. Converted with DCCV 3-4x, and amiodorone bolus/gtt. In NSR for last 18 hours. E. Coli bacteremia: Likely Urinary source with gomez-sensitive E.Coli. On Ertapenem, changing to Unasyn. ID following. Pneumonia: Enterovirus on respiratory panel. ? if this is the pathogen and/or he has ARDS, although infiltrates are asymmetric Acute respiratory failure: Intubated for surgery, and has remained intubated due to HD instability, continued metabolic acidosis. TAVON: Likely due to sepsis as well as obstruction from bladder hematoma Bladder outlet obstruction due to hematoma/stone: Hematoma likely caused by anticoagulation. Initially did well with bladder irrigation, but then output stopped. Went to OR yesterday with removal of clot/stone. CBI irrigation with clear return since surgery. Anemia: Likely due to volume expansion, bladder bleeding, pre-existing anemia from surgery 2 weeks ago and MM. Complicated by inability to crossmatch due to undetermined factor, possibly related to chemotherapy. Counts down 11/16, transfused x 1 without incident, Hgb now down a bit again. Thrombocytopenia: Plt falling, 47k this morning Hypernatremia: Continues to trend up. Multiple Myeloma: S/P chemotherapy earlier this week. S/P stabilization of leg pathologic lesion 2 weeks ago. Hypocalcemia Plan: Continue Unasyn per ID Continue TF Continue sepsis protocol. Trying CPAP today, VE a bit high and he's quite weak. May hold off on extubation another day. Recheck ABG, lactate. CXR tomorrow. Will defer to Oncology regarding anemia and thrombocytopenia 35 minutes CC time, managing hypotension requiring pressors, adjusting ventilator and assessing for extubation. 11/18/17 12:44 Subjective: Intubated, sedated Objective: Vital Signs Temp Pulse Resp BP Pulse Ox 37.5 C 53 L 20 125/50 H 100 11/18/17 08:00 11/18/17 10:00 11/18/17 10:00 11/18/17 10:00 11/18/17 10:00 Microbiology 11/15/17 20:41 Urine Culture - Final Urine,Clean Catch Laboratory Results 11/18/17 04:58 11/18/17 04:58 11/17/17 11/18/17 11/19/17 05:59 05:59 05:59 Intake Total 5496.5 5529 Output Total 3075 2325 Balance 2421.5 3204 PT 24.4 SEC (12.0-15.0) H D 11/16/17 04:00 INR 2.19 (0.83-1.16) H 11/16/17 04:00 Laboratory Tests 11/17/17 11/18/17 04:00 04:48 POC pH 7.44 POC pCO2 23 L POC pO2 112 H POC HCO3 16 L POC Total CO2 17 L POC FiO2 40.0000 Ionized Calcium 0.94 L Physical Exam - Physical Exam General Appearance: No alert, No no apparent distress EENT: normal ENT inspection Neck: normal inspection Respiratory: crackles (bases) Cardiac/Chest: regular rate, rhythm, No edema Abdomen: normal bowel sounds, non-tender Skin: normal color, warm/dry Extremities: normal inspection Neuro/Psych: No alert (sedated, opens eyes to voice) ICD10 Worksheet Patient Problems: Problems Problem Status Onset Pneumonia Acute Sepsis Acute
--- NOTE | 2017-11-18 15:15 | ASMTCMCOM ---
CM Note CM Note Notes: Patient remains critically ill. Therapies have been unable to work with patient yet. Family remains involved and supportive of patient. CM will follow. Date Signed: 11/18/2017 03:14 PM Electronically Signed By:Maty Patiño LCSW
--- NOTE | 2017-11-18 15:19 | SOAPPROG ---
SOAP Progress Note Assessment/Plan: Assessment/Plan: 72 man w progressive aggressive IgA nonsecretory multiple myeloma who p/w septic shock 1. Septic shock - E. coli bacteremia from urinary source (skinner 2 weeks ago), PNA, Enterovirus Pressors, IVF and IV abx ID following remains critically ill 2. Urinary retention - due to large bladder hematoma likely occurred as result of Skinner trauma on Xarelto OR 11/16 for clot removal and irrigation clean urine outpt at this time 3. Syncope - due to #1 less likely from thromboembolism DVT LE negative 4. IgA MM - s/pC1D5 kelly/velcade/dex will hold Velcade do to #1 continue stress dose steroids 5. Anemia - multifactorial monitor need for PRBCs - should get today daratumumab directly binds to CD38 on reagent red cells used in the blood bank, causing the false positive antibody screens using least incompatible blood as needed 6. Thrombocytopenia - multifactorial no further bleeding hold off on platelets at this time updated family at bedside, about 25 min 11/18/17 15:18 Subjective: still intubated and sedated Objective: Vital Signs Temp Pulse Resp BP Pulse Ox 37.3 C 61 16 118/48 L 100 11/18/17 14:00 11/18/17 14:00 11/18/17 14:00 11/18/17 14:00 11/18/17 14:00 Microbiology 11/15/17 20:41 Urine Culture - Final Urine,Clean Catch Laboratory Results 11/18/17 04:58 11/18/17 14:10 11/17/17 11/18/17 11/19/17 05:59 05:59 05:59 Intake Total 5496.5 5529 Output Total 3075 2325 Balance 2421.5 3204 PT 24.4 SEC (12.0-15.0) H D 11/16/17 04:00 INR 2.19 (0.83-1.16) H 11/16/17 04:00 Exam unchanged intubated, sedated urine output in skinner bag clear abdomen soft, BS+ ICD10 Worksheet Patient Problems: Problems Problem Status Onset Pneumonia Acute Sepsis Acute
[2017-11-18] MEDS ORDERED: POTASSIUM Cl (KCl) 100 ML IV ONE (16:00)
[2017-11-18] MEDS ORDERED: ONDANSETRON DISINTEGRATING 4 MG TAB TUBE PRN (17:00)
[2017-11-19] MEDS: INSULIN REGULAR HUMAN 100 UNIT/ML UNIT SC SCH ×4 (00:26→18:03)
[2017-11-19] MEDS: AMPICILLIN/SULBACTAM 3 GM in NS 100 ML IV SCH ×4 (00:26→18:03)
[2017-11-19] MEDS: ASCORBIC ACID 1,500 MG in D5W 100 ML IV SCH ×2 (02:04→09:06)
[2017-11-19] MEDS: THIAMINE HCL 200 MG in NS 100 ML IV SCH (02:57)
[2017-11-19 05:16] LABS: PLATELET COUNT 31 10^3/uL (150-400)
[2017-11-19] MEDS: HYDROCORTISONE 100 MG/2 ML VIAL IVP SCH ×3 (07:15→21:54)
[2017-11-19] MEDS ORDERED: CALCIUM GLUCONATE 50 ML IV ONE (08:10)
[2017-11-19] MEDS ORDERED: POTASSIUM Cl (KCl) 50 ML IV ONE ×3 (08:10→20:25)
[2017-11-19] MEDS ORDERED: DILTIAZEM 25 MG/5 ML VIAL IVP ONE (09:05)
--- NOTE | 2017-11-19 09:16 | PCMIDPN ---
Assessment/Plan: #Sepsis due to bacteremia, PNA: generally improving #Ecoli bacteremia: Still suspicious for urinary source despite negative urine culture # Aspiration PNA, L infiltrate, PCT 131, PET scan reportedly cold in this area, persistently elevated WBC, CXR with persistent infiltrate LLL and B effusion L>R --continue Unasyn --could consider aspiration of pleural fluid but may be difficult in light of low plts --recheck PCT # Leukocytosis, last fever 11/17 (2 days ago): blood cx 2 days ago negative; new R arm swelling, no diarrhea makes Cdiff unlikely a this point, query pulmonary origin, discussion of tapping pleural fluid as above # Enterovirus: continue resp precautions # Thrombocytopenia, new: multifactorial # Multiple Myeloma, relapsed : last chemo 11/14 Abx: #5 Unasyn 3gm IV q6h, #1 s/p 3 days ertapenem 1gm IV daily S/p 2 days Ceftriaxone micro 11/15 blood cx e coli 11/15 Ucx neg 11/17 blood cx (2) NGTD Subjective: on CPAP overnight new Afib this AM R arm swelling no diarrhea Objective: Vital Signs Temp Pulse Resp BP Pulse Ox 36.8 C 57 L 12 113/68 100 11/18/17 20:00 11/19/17 08:00 11/19/17 08:00 11/19/17 08:00 11/19/17 08:00 Microbiology 11/15/17 20:41 Urine Culture - Final Urine,Clean Catch Laboratory Results 11/19/17 04:25 11/19/17 04:25 11/18/17 11/19/17 11/20/17 05:59 05:59 05:59 Intake Total 5529 5523.6 Output Total 2325 1475 Balance 3204 4048.6 Selected Entries 11/17/17 16:00 Temperature MAX 38.3 C H Gen: awake on vent following commands HEENT: OGT, NGT, dry MM, conjunctival edema RUE PICC line, R arm swelling, skin tear hand without signs of infection CV: tachy irr Chest : course bs, decreased BS L>R Abdomen: distension, BS present Ext: anasarca, R arm swelling as above Skin: pallor and skin tear as above Neuro, moving all ext ICD10 Worksheet Patient Problems: Problems Problem Status Onset Pneumonia Acute Sepsis Acute
[2017-11-19] MEDS ORDERED: DIGOXIN 500 MCG/2 ML AMP IVP ONE (09:40)
[2017-11-19] MEDS ORDERED: DILTIAZEM 25 MG/5 ML VIAL IVP SCH (09:45)
[2017-11-19] MEDS ORDERED: ALBUMIN 25% 200 ML IV ONE (10:01)
[2017-11-19] MEDS ORDERED: FUROSEMIDE 40 MG/4 ML VIAL IVP ONE (10:01)
--- NOTE | 2017-11-19 10:06 | HOSPPROG ---
Hospitalist Progress Note Assessment/Plan: DIAGNOSES: # Septic shock: multiple sources including lungs and urinary tract * Have just recently this morning discontinued pressor support and so far pressures holding okay but will need to follow closely * Continued improvement in respiratory failure, improving renal failure but no new organ failure # Acute hypoxic resp failure * Still on mechanical ventilator, overall doing well on CPAP but given his rapid AFib had his severe overall weakness would like to make some further improvements before extubation, will attempt cardioversion and trying get him diuresed a bit more, consider extubation later today or tomorrow if stable # E coli bacteremia, sources suspected to be urinary: * Invanz discontinued due to thrombocytopenia, now on Unasyn * Repeat cultures negative # Atrial fibrillation with RVR: cardioverted x 3. * After multiple cardioversions had stayed in sinus rhythm on amiodarone drip though this stopped yesterday * Recurrence of rapid atrial fibrillation this morning off of the amiodarone with rates in the 150-170 range * So far tolerating this okay in terms of blood pressures and respiration, but this may interfere with management of his respiratory issues and edema # new DVT left arm at tip of PICC catheter * Complicated matters as he is unable to be anticoagulated with severe thrombocytopenia and post hemorrhagic anemia, and is in need of ongoing PICC catheter * I reviewed with Dr. Gama and Dr. Ott will leave PICC catheter in at this time follow closely # Acute blood loss anemia * large bladder hematoma, ? if caused by skinner or stone * stones and clot evacuated by Dr Mtz 11/16 * transfused 1 unit RBC 11/17, 2nd unit 11/18 * Hemoglobin appropriately higher today after transfusion yesterday # acute thrombocytopenia, worsening daily * Down to 31,000 today; ? If caused by his [place] or otherwise; he is not on heparin due to bleeding # Cardiac arrest: went into rapid a fib in OR, has ROSC with CPR * Appears to likely have good neurologic recovery # TAVON: due to shock, hypotension * Currently resolved with good urine output # Bladder obstruction: due to hematoma, which has been evacuated # CAP: Azitho, Invanz. Strep, Legionella pending # MM: chemo on hold # Recent stabilization of plasmocytoma. Surgical site healing well. staple can be removed # Chronic steroid use: stress-dose steroids PLANS: -continue antibiotics, the most recent blood cultures pending -continue pressor support and fluid support -continue mechanical ventilator, continue attempts to wean from that -continue tube feedings for now -will not removed catheter, elevate left arm -continue off anticoagulant -follow-up platelets closely, Invanz discontinued in case that is the cause of low platelets -DVT prophylaxis at this point is mechanical due to his bleeding issues and low platelets In addition to hospitals rounds today I saw this patient on interdisciplinary rounds and plan I reviewed in detail with Dr. Caleb Gama, Dr Li Ott, and Dr. 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 Most impressive is his continued decrease in hemoglobin and the marked decreased platelets today Microbiology data: Most recent blood cultures from yesterday still pending no growth Objective: Vital Signs Temp Pulse Resp BP Pulse Ox 36.8 C 57 L 12 113/68 100 11/18/17 20:00 11/19/17 08:00 11/19/17 08:00 11/19/17 08:00 11/19/17 08:00 Microbiology 11/15/17 20:41 Urine Culture - Final Urine,Clean Catch Laboratory Results 11/19/17 04:25 11/19/17 04:25 11/18/17 11/19/17 11/20/17 06:59 06:59 06:59 Intake Total 5529 5523.6 Output Total 8935 1475 Balance 3204 4048.6 PT 24.4 SEC (12.0-15.0) H D 11/16/17 04:00 INR 2.19 (0.83-1.16) H 11/16/17 04:00 - Time Spent With Patient Time Spent with Patient: greater than 35 minutes Time Spent with Patient: Greater than 35 minutes spent on this patients care, greater than 50% of time spent counseling, educating, and coordinating care regarding the above mentioned plan. ICD10 Worksheet Patient Problems: Problems Problem Status Onset Pneumonia Acute Sepsis Acute
--- NOTE | 2017-11-19 11:32 | PDINTPN ---
It Quality Assurance Analyst Progress Note Assessment/Plan: Assessment: Septic Shock: Had hypotension 11/16, improved last 2 days, weaning pressors. E.Coli in blood. Meeting goals of sepsis protocol AF: Had AF with RVR/arrest, CPR for 1 minute during surgery 11/16, followed by further AF/RVR throughout that day. Converted with DCCV 3-4x, and amiodorone bolus/gtt. In NSR for next 2 days, then amio gtt stopped. Back in AF rate 150 9: 30 AM 11/19. BP OK with minimal pressors. E. Coli bacteremia: Likely Urinary source with gomez-sensitive E.Coli. On Ertapenem, changing to Unasyn. ID following. Pneumonia: Enterovirus on respiratory panel. ? if this is the pathogen and/or he has ARDS, although infiltrates are asymmetric. Aspiration also possible. Acute respiratory failure: Intubated for surgery, and has remained intubated due to HD instability, high VE likely due to positive fluid status, enterovirus , possible aspiration. TAVON: Likely due to sepsis as well as obstruction from bladder hematoma. Cr normalized, BUN high and climbing. Bladder outlet obstruction due to hematoma/stone: Hematoma likely caused by anticoagulation. Initially did well with bladder irrigation, but then output stopped. Went to OR yesterday with removal of clot/stone. CBI irrigation with clear return since surgery. Anemia: Likely due to volume expansion, bladder bleeding, pre-existing anemia from surgery 2 weeks ago and MM. Complicated by inability to crossmatch due to undetermined factor, possibly related to chemotherapy. Counts down 11/16, transfused x 1 without incident, Hgb down again 11/18 and transfused 1 PRBC. Thrombocytopenia: Plt falling, 31k this morning Hypernatremia: High but stable, on free H2O via feeding tube. Multiple Myeloma: S/P chemotherapy earlier this week. S/P stabilization of leg pathologic lesion 2 weeks ago. Hypocalcemia RUE basilic vein thrombosis associated with PICC: Found on US 11/19. Plan: Continue Unasyn per ID Continue TF, free H2O. Cardiology consult. Rebolus with amio and start gtt. Trial of Lasix/albumin Continue sepsis protocol. Continue CPAP today, VE a bit high and he's quite weak. Consider extubation if status stable. D/W RN, RT, Drs. Link and Eulogio, family. 40 minutes CC time, managing AF with RVR, hypotension requiring pressors, acute right arm thrombosis, hypernatremia/fluid status/hypernatremia, adjusting ventilator and assessing for extubation. 11/19/17 11:35 Subjective: Intubated, sedated Objective: Vital Signs Temp Pulse Resp BP Pulse Ox 36.8 C 150 H 20 113/55 L 100 11/18/17 20:00 11/19/17 11:00 11/19/17 11:00 11/19/17 11:00 11/19/17 11:00 Microbiology 11/15/17 20:41 Urine Culture - Final Urine,Clean Catch Laboratory Results 11/19/17 04:25 11/19/17 04:25 11/18/17 11/19/17 11/20/17 05:59 05:59 05:59 Intake Total 5529 5523.6 Output Total 2325 1475 Balance 3204 4048.6 PT 24.4 SEC (12.0-15.0) H D 11/16/17 04:00 INR 2.19 (0.83-1.16) H 11/16/17 04:00 CXR: Increased bibasilar effusions, L>R. Images reviewed by me. Physical Exam - Physical Exam General Appearance: alert EENT: normal ENT inspection Neck: normal inspection Respiratory: lungs clear, normal breath sounds Cardiac/Chest: regular rate, rhythm, edema Abdomen: normal bowel sounds, non-tender Skin: warm/dry Extremities: normal inspection Neuro/Psych: alert, No motor weakness ICD10 Worksheet Patient Problems: Problems Problem Status Onset Pneumonia Acute Sepsis Acute
[2017-11-19] MEDS ORDERED: AMIODARONE HCL 540 MG in D5W 300 ML IV ONE ×2 (11:40→18:00)
[2017-11-19] MEDS ORDERED: AMIODARONE HCL 200 ML IV ONE (11:41)
--- NOTE | 2017-11-19 13:16 | SOAPPROG ---
SOAP Progress Note Assessment/Plan: Assessment/Plan: 72 man w progressive aggressive IgA nonsecretory multiple myeloma who p/w septic shock 1. Septic shock - E. coli bacteremia from urinary source (skinner 2 weeks ago), PNA, Enterovirus Pressors, IVF and IV abx ID following remains critically ill but improving 2. Urinary retention - due to large bladder hematoma likely occurred as result of Skinner trauma on Xarelto OR 11/16 for clot removal and irrigation clean urine outpt at this time 3. Syncope - due to #1 less likely from thromboembolism DVT LE negative 4. IgA MM - s/pC1D5 kelly/velcade/dex will hold Velcade do to #1 continue stress dose steroids 5. Anemia - multifactorial monitor need for PRBCs - should get today daratumumab directly binds to CD38 on reagent red cells used in the blood bank, causing the false positive antibody screens using least incompatible blood as needed 6. Thrombocytopenia - multifactorial no further bleeding hold off on platelets at this time, but probably should transfuse less than 20k. Query Amiodarone as a contributing factor, now off, will discuss with hospital service updated family at bedside, about 25 min 11/19/17 13:13 11/19/17 13:16 Subjective: Intubated Objective: Vital Signs Temp Pulse Resp BP Pulse Ox 98.2 F 147 H 20 105/52 L 99 11/18/17 20:00 11/19/17 12:00 11/19/17 12:00 11/19/17 12:00 11/19/17 12:00 Microbiology 11/15/17 20:41 Urine Culture - Final Urine,Clean Catch Laboratory Results 11/19/17 04:25 11/19/17 04:25 11/18/17 11/19/17 11/20/17 05:59 05:59 05:59 Intake Total 5529 5523.6 Output Total 2325 1475 Balance 3204 4048.6 PT 24.4 SEC (12.0-15.0) H D 11/16/17 04:00 INR 2.19 (0.83-1.16) H 11/16/17 04:00 Physical Exam - Physical Exam General Appearance: other (intubated) ICD10 Worksheet Patient Problems: Problems Problem Status Onset Pneumonia Acute Sepsis Acute
--- NOTE | 2017-11-19 13:25 | HOSPPROG ---
Hospitalist Progress Note Assessment/Plan: DIAGNOSES: # Septic shock: multiple sources including lungs and urinary tract * Have just recently this morning discontinued pressor support and so far pressures holding okay but will need to follow closely * Continued improvement in respiratory failure, improving renal failure but no new organ failure # Acute hypoxic resp failure * Still on mechanical ventilator, overall doing well on CPAP but given his rapid AFib had his severe overall weakness would like to make some further improvements before extubation, will attempt cardioversion and trying get him diuresed a bit more, consider extubation later today or tomorrow if stable # E coli bacteremia, sources suspected to be urinary: * Invanz discontinued due to thrombocytopenia, now on Unasyn * Repeat cultures negative # Atrial fibrillation with RVR: cardioverted x 3. * After multiple cardioversions had stayed in sinus rhythm on amiodarone drip though this stopped yesterday * Recurrence of rapid atrial fibrillation this morning off of the amiodarone with rates in the 150-170 range * So far tolerating this okay in terms of blood pressures and respiration, but this will interfere with management of his respiratory issues and edema, and due to his shock, severe anemia with high bleeding risk, need for diuresis, and other issues cardioversion seen is a more a prudent approach if for able to compare to adding rate control medicines which would lower the blood pressure. I reviewed in detail with Who agrees. He recommends at this point adding amiodarone as he required multiple cardioversions in the past and he seems to have gone back to AFib after stopping his amiodarone drip. There is some risk of stroke with out anticoagulation, however with his low platelets this is likely less risky, and his risk of further complications with hypotension from rate control medicines as considerable # new DVT left arm at tip of PICC catheter * Complicated matters as he is unable to be anticoagulated with severe thrombocytopenia and post hemorrhagic anemia, and is in need of ongoing PICC catheter * I reviewed with Dr. Gama and Dr. Ott will leave PICC catheter in at this time follow closely # Acute blood loss anemia * large bladder hematoma, ? if caused by skinner or stone * stones and clot evacuated by Dr Mtz 11/16 * transfused 1 unit RBC 11/17, 2nd unit 11/18 * Hemoglobin appropriately higher today after transfusion yesterday # acute thrombocytopenia, worsening daily * Down to 31,000 today; ? If caused by his Invance or otherwise; he is not on heparin due to bleeding # hypernatremia * At this point will change his fluids to be more dilute to try and correct this # Cardiac arrest: went into rapid a fib in OR, has ROSC with CPR * Appears to likely have good neurologic recovery # TAVON: due to shock, hypotension * Currently resolved with good urine output # Bladder obstruction: due to hematoma, which has been evacuated # CAP: Azitho, Invanz. Strep, Legionella pending # MM: chemo on hold # Recent stabilization of plasmocytoma. Surgical site healing well. staple can be removed # Chronic steroid use: stress-dose steroids PLANS: -continue antibiotics, the most recent blood cultures pending -continue pressor support and fluid support -continue mechanical ventilator, continue attempts to wean from that -continue tube feedings for now -will not removed catheter, elevate left arm -continue off anticoagulant -follow-up platelets closely, Invanz discontinued in case that is the cause of low platelets -DVT prophylaxis at this point is mechanical due to his bleeding issues and low platelets In addition to hospitals rounds today I saw this patient on interdisciplinary rounds and plan I reviewed in detail with Dr. Caleb Gama, Dr Li Ott, and Dr. 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 Most impressive is his continued decrease in hemoglobin and the marked decreased platelets today Microbiology data: Most recent blood cultures from yesterday still pending no growth Objective: Vital Signs Temp Pulse Resp BP Pulse Ox 36.8 C 147 H 20 105/52 L 99 11/18/17 20:00 11/19/17 12:00 11/19/17 12:00 11/19/17 12:00 11/19/17 12:00 Microbiology 11/15/17 20:41 Urine Culture - Final Urine,Clean Catch Laboratory Results 11/19/17 04:25 11/19/17 04:25 11/18/17 11/19/17 11/20/17 06:59 06:59 06:59 Intake Total 5529 5523.6 Output Total 2325 1475 Balance 3204 4048.6 PT 24.4 SEC (12.0-15.0) H D 11/16/17 04:00 INR 2.19 (0.83-1.16) H 11/16/17 04:00 - Time Spent With Patient Time Spent with Patient: greater than 35 minutes Time Spent with Patient: Greater than 35 minutes spent on this patients care, greater than 50% of time spent counseling, educating, and coordinating care regarding the above mentioned plan. ICD10 Worksheet Patient Problems: Problems Problem Status Onset Pneumonia Acute Sepsis Acute
[2017-11-19] MEDS ORDERED: D5W 1/2 NS 1,000 ML IV SCH (13:30)
[2017-11-19] MEDS ORDERED: POTASSIUM Cl (KCl) 50 ML IV SCH (15:30)
[2017-11-19] MEDS ORDERED: POTASSIUM Cl (KCl) 100 ML IV ONE (15:45)
[2017-11-19] MEDS ORDERED: PROPOFOL 200 MG/20 ML VIAL IV ONE (17:00)
--- NOTE | 2017-11-19 17:13 | GCON ---
[f rep st] CONSULTATION CARDIOLOGY CONSULTATION DATE OF CONSULTATION: 11/19/2017 INDICATION FOR CONSULTATION: Atrial fibrillation with rapid ventricular response. CONSULTING PHYSICIAN: Dr. Tevin Link HISTORY OF PRESENT ILLNESS: The patient is a pleasant 72-year-old gentleman who is critically ill with multiple medical comorbidities. 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 Recent scans demonstrated extensive metabolically active multiple myeloma throughout the axial and appendicular skeleton with large destructive soft tissue mass in the distal left femur without pathologic fracture. He was recently started on chemotherapy with daratumumab, Velcade and dexamethasone on November 14, 2017. He presented on November 15, 2017, to [facility] and was found to be unresponsive in his car. He was brought to the emergency room where he was found to be hypotensive, tachypneic and hypoxic. He was started on sepsis protocol and brought to the ICU. He was found to be in septic shock with E coli bacteremia, pneumonia and enterovirus. He was also found to have acute blood loss secondary to bladder hematoma with bladder obstruction. He was brought to the operating room on November 16 for bladder surgery. During the surgery he developed atrial fibrillation with rapid ventricular response with cardiac arrest requiring approximately 1 minute of CPR with return of spontaneous circulation. He was cardioverted at that time. Throughout the course of November 16, he underwent approximately 3 further cardioversions with atrial fibrillation with rapid ventricular response and hemodynamic compromise with hypotension. He was started on pressor support. He was started on IV amiodarone. He had no further episodes of atrial fibrillation while on amiodarone drip. Earlier today, he returned to atrial fibrillation with rapid ventricular response with rates in the 150s to 160s. He had remained hemodynamically stable with adequate blood pressures off all pressor support. There is no evidence of acute decompensation. Of note, his amiodarone had been discontinued the previous day. His medical course is complicated by acute blood loss and ongoing bleeding from the bladder. He has also developed marked thrombocytopenia. Most recent hemoglobin of 7.9. He had been transfused yesterday. Hemoglobin was as low as 6.7. Platelet count of 31, platelets on admission were 308. 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 The basilic vein clot is at the site of his PICC line. An echocardiogram done on November 16 demonstrates mildly reduced left ventricular function with LVEF of 42% and moderate to severe pulmonary hypertension with RV systolic pressure of 65 mmHg. Currently, at the time of my exam, he is awake and nods appropriately. He is intubated. He is there with his family. I have answered all of his questions and his family's questions. PAST MEDICAL HISTORY: Notable for multiple myeloma initially diagnosed in 2012. No other significant past medical history. No previous history of atrial fibrillation. No history of hypertension, hyperlipidemia, or diabetes. MEDICATIONS ON ADMISSION: Include tramadol 50 mg q.4 hours, Singulair 10 mg daily, Ativan 0.5 mg q.8 hours, acyclovir 400 mg p.o. b.i.d., Zofran 8 mg q.8 hours p.r.n., Decadron 20 mg daily, Xarelto 10 mg daily, albuterol p.r.n., multivitamin. Of note, he was on Xarelto status post femur fixation on November 02, 2017, for left femur plasmacytoma. This procedure was performed in [place]. Xarelto was for postoperative orthopedic surgery prophylaxis. SOCIAL: He is . He lives with his . He is a lifelong nonsmoker. No significant alcohol use. FAMILY: Father has a known history of COPD and lung cancer. Mother with lymphoma. He has a sister who had a myocardial infarction at the age of 60 and history of breast cancer. ALLERGIES: To medications none. EXAM: GENERAL: The patient is intubated. However, he is awake, He makes appropriate eye contact and nods appropriately. CARDIAC: Irregularly irregular with rapid ventricular rate in the 150s. No murmurs, rubs, or gallops. PULMONARY: Decreased breath sounds diffusely, but no audible wheeze, rhonchi or rales. ABDOMEN: Soft, mildly distended. He has marked right upper extremity edema and bilateral lower extremity edema. DATA: White blood cell count 19.72, hemoglobin of 7.9, hematocrit 24.6, platelet count 31. Sodium 155, potassium 3.7, chloride 124, CO2 19, BUN 50, creatinine 1.1, glucose 160, magnesium 1.9. Normal left ventricular cavity size, LVEF 42% with mid anterior septal hypokinesis. Mildly dilated right ventricle, with normal right ventricular function. Mild mitral and aortic regurgitation. Moderate to severe tricuspid regurgitation with RV systolic pressure of 65 mmHg. Dilated IVC. Trivial pericardial effusion. Telemetry demonstrates atrial fibrillation with rapid ventricular response in the 150s. IMPRESSION: 1. Atrial fibrillation with rapid ventricular response. 2. Cardiac arrest during bladder surgery on November 16, 2017, requiring 1 minute of CPR with return to spontaneous circulation. Cardiomyopathy with LVEF of 42% . 3. Septic shock. 4. Severe anemia with ongoing bleeding in the bladder. 5. Severe thrombocytopenia with platelet count of 31. 6. Acute hypoxic respiratory arrest. 7. E coli bacteremia. 8. Right upper extremity DVT. 9. Multiple myeloma. SUMMARY: The patient is a pleasant 72-year-old gentleman who is acutely ill with multiple medical comorbidities driven by underlying illness of multiple myeloma with recent restart of chemotherapy on November 14, 2017. Course has been complicated by acute hypoxic respiratory arrest, E coli bacteremia and sepsis with septic shock with complications including acute blood loss anemia, new onset of thrombocytopenia and right upper extremity DVT. His course has also been complicated by several episodes of atrial fibrillation with rapid ventricular response requiring emergent cardioversion in the setting of symptomatic hypotension. In reviewing his chart, he appeared to maintain sinus rhythm while on amiodarone. I have recommended returning the amiodarone before considering further cardioversion. He is unable to be anticoagulated at this time in the setting of acute blood loss anemia and new acute onset thrombocytopenia. We discussed risks of possible CVA in the setting of cardioversion with inability to anticoagulate with evidence of upper extremity DVT. I do not think he is appropriate candidate for anticoagulation. PLAN: 1. Restart amiodarone drip at 1 mg/minute per protocol. 2. Would avoid amiodarone loading bolus. 3. Not a candidate for anticoagulation at this time. 4. Will allow amiodarone infusion to occur for several hours. If he does not return to sinus rhythm or at least rate controlled atrial fibrillation or becomes hypotensive we will plan on urgent cardioversion. 5. I have reviewed my findings with both Dr. Caleb Gama and Cj Link. I have spoken with the patient and patient's family. I have answered all their questions. 45 minutes spent coordinating care. /[id number]/MODL MTDD
[2017-11-20] MEDS: INSULIN REGULAR HUMAN 100 UNIT/ML UNIT SC SCH ×5 (02:08→23:57)
[2017-11-20] MEDS: AMPICILLIN/SULBACTAM 3 GM in NS 100 ML IV SCH ×5 (02:09→23:57)
[2017-11-20 04:34] LABS: PLATELET COUNT 39 10^3/uL (150-400)
--- NOTE | 2017-11-20 05:01 | CPR ---
[f rep st] NONINVASIVE CARDIAC PROCEDURE REPORT DATE OF PROCEDURE: 11/19/2017 PROCEDURE PERFORMED: Direct current cardioversion. INDICATION FOR PROCEDURE: Atrial fibrillation with rapid ventricular response in the setting of acut e illness. SUMMARY: Mr. Mathews is a pleasant 72-year-old gentleman, who was admitted to [facility] on November 15, 2017, in the setting of underlying multiple myeloma. He was also found to be in atri al fibrillation with rapid ventricular response. He has undergone 4 previous cardioversions since hi s admission. His course has also been complicated by severe blood loss anemia with current hemoglobi n of approximately 7 despite transfusion. He also has right upper extremity thrombosis seen on ultra sound today. He has also developed severe thrombocytopenia with platelet count of 31. As a result, he is no longer on anticoagulation due to risks as outlined above. Decision was made to pursue cardioversion after restarting amiodarone earlier today did not result in orthodox of sinus rhythm. Amiodarone did bring down his average rate from approximately 155 down to the low 130s. In the setting of acute illness with mildly reduced left ventricular function. At tempt at orthodox of sinus rhythm was decided upon. The consents for cardioversion were obtained by patient's . Risks and benefits were discussed in detail particularly in the setting of inability to anticoagulate at this time. With the assistance of Dr. Caleb Gama, who provided propofol administration pacer pads were placed anterior and laterally. Once appropriate level of sedation was achieved, the patient received a sing le shock of 200 joules of synchronized biphasic energy, resulting in orthodox of this sinus rhythm at approximately 60 beats per minute. The patient recovered from his procedure without any further complications. PLAN: The patient will continue on amiodarone drip per protocol and we will plan to start oral amiod arone tomorrow. /[id number]/MODL
[2017-11-20] MEDS: HYDROCORTISONE 100 MG/2 ML VIAL IVP SCH (07:19)
[2017-11-20] MEDS ORDERED: ACETAMINOPHEN 325 MG TAB TUBE PRN (09:00)
[2017-11-20] MEDS ORDERED: MAGNESIUM SULF 1 GM/DEXTROSE 100 ML IV ONE (09:04)
[2017-11-20] MEDS ORDERED: POTASSIUM CL 20 MEQ/15 ML UDCUP TUBE ONE ×3 (09:15→18:45)
[2017-11-20] MEDS ORDERED: POTASSIUM Cl (KCl) 50 ML IV SCH ×2 (09:15→18:45)
[2017-11-20] MEDS ORDERED: DIGOXIN 500 MCG/2 ML AMP IVP ONE ×2 (09:30→13:30)
[2017-11-20] MEDS ORDERED: FUROSEMIDE 40 MG/4 ML VIAL IVP ONE (09:33)
[2017-11-20] MEDS ORDERED: ALBUMIN 25% 200 ML IV ONE (09:40)
--- NOTE | 2017-11-20 09:40 | PDINTPN ---
Records Management Associate Progress Note Assessment/Plan: Assessment: Septic Shock: Had hypotension 11/16, improved last 2 days, pressors off. E.Coli in blood. Meeting goals of sepsis protocol AF: Had AF with RVR/arrest, CPR for 1 minute during surgery 11/16, followed by further AF/RVR throughout that day. Converted with DCCV 3-4x, and amiodorone bolus/gtt. In NSR for next 2 days, then amio gtt stopped. Back in AF rate 150 9: 30 AM 11/19. Cardioversion 11/19 afternoon only lasted 20 minutes. Rates 100-130. BP OK off pressors. E. Coli bacteremia: Likely Urinary source with gomez-sensitive E.Coli. On Unasyn. ID following. Pneumonia: Enterovirus on respiratory panel. ? if this is the pathogen and/or he has ARDS, although infiltrates are asymmetric. Aspiration also possible. Acute respiratory failure: Intubated for surgery, and has remained intubated due to HD instability, high VE likely due to positive fluid status, enterovirus , possible aspiration. TAVON: Likely due to sepsis as well as obstruction from bladder hematoma. Cr normalized, BUN on high side Bladder outlet obstruction due to hematoma/stone: Hematoma likely caused by anticoagulation. Initially did well with bladder irrigation, but then output stopped. Went to OR for removal of clot/stone. Urine clear since surgery. Anemia: Likely due to volume expansion, bladder bleeding, pre-existing anemia from surgery 2 weeks ago and MM. Complicated by inability to crossmatch due to undetermined factor, possibly related to chemotherapy. Counts down 11/16, transfused x 1 without incident, Hgb down again 11/18 and transfused 1 PRBC. Thrombocytopenia: Plt up to 39k this morning. ? fell due to Invanz in the setting of MM Hypernatremia: High but stable, on free H2O via feeding tube. Multiple Myeloma: S/P chemotherapy last week. S/P stabilization of leg pathologic lesion 2 weeks ago. Hypocalcemia RUE basilic vein thrombosis associated with PICC: Found on US 11/19. Plan: Continue Unasyn per ID Continue TF, free H2O. Change amio to PO Dose of Lasix/albumin Stop steroids Trial of CPAP, stop fentanyl, probably extubate today D/W RN, RT, Drs. Link and Eulogio, family. 11/20/17 10:48 Subjective: Sedated but arousable. No complaints Objective: Vital Signs Temp Pulse Resp BP Pulse Ox 36.6 C 108 H 20 116/60 100 11/20/17 08:09 11/20/17 08:09 11/20/17 08:09 11/20/17 08:00 11/20/17 08:09 Laboratory Results 11/20/17 04:20 11/20/17 04:20 11/19/17 11/20/17 11/21/17 05:59 05:59 05:59 Intake Total 5523.6 3451.5 Output Total 1475 4025 Balance 4048.6 -573.5 PT 24.4 SEC (12.0-15.0) H D 11/16/17 04:00 INR 2.19 (0.83-1.16) H 11/16/17 04:00 Physical Exam - Physical Exam General Appearance: alert, no apparent distress EENT: normal ENT inspection Neck: normal inspection Respiratory: lungs clear, normal breath sounds Cardiac/Chest: irregularly irregular, No edema (1+) Abdomen: non-tender, soft Skin: normal color, warm/dry Extremities: normal inspection Neuro/Psych: alert, normal mood/affect, oriented x 3 ICD10 Worksheet Patient Problems: Problems Problem Status Onset Pneumonia Acute Sepsis Acute
[2017-11-20] MEDS ORDERED: CALCIUM GLUCONATE 50 ML IV ONE (09:43)
--- NOTE | 2017-11-20 10:04 | PCMIDPN ---
Assessment/Plan: #Sepsis due to bacteremia, PNA: still, generally improving #Ecoli bacteremia: blood cx 11/17 neg; Still suspicious for urinary source despite negative urine culture --continue Unasyn # Aspiration PNA, L infiltrate, (PET scan reportedly cold in this area), CXR yesterday with persistent infiltrate LLL and effusion, but clinically improved today with minimal vent setting and decreasing wbc --continue Unasyn --PCT trending down suggesting adequate Rx --hold off on aspiration of pleural fluid, working diagnosis is that due to volume overload # Enterovirus: continue resp precautions # Thrombocytopenia: multifactorial, counts stable today # Multiple Myeloma, relapsed : last chemo 11/14 # PICC Line DVT R UE: holding off on changing because of low platelets and critical illness Abx: #6 Unasyn 3gm IV q6h, #2 s/p 3 days ertapenem 1gm IV daily S/p 2 days Ceftriaxone micro 11/15 blood cx e coli 11/15 Ucx neg 11/17 blood cx (2) NGTD legionella An neg Subjective: 4L out since yesterday Afib now on amiodarone (cardioverted yesterday but afib returned immediately) Liquid stool attributed to TF Objective: Vital Signs Temp Pulse Resp BP Pulse Ox 36.6 C 108 H 20 116/60 100 11/20/17 08:09 11/20/17 08:09 11/20/17 08:09 11/20/17 08:00 11/20/17 08:09 Laboratory Results 11/20/17 04:20 11/20/17 04:20 11/19/17 11/20/17 11/21/17 05:59 05:59 05:59 Intake Total 5523.6 3451.5 Output Total 1475 4025 Balance 4048.6 -573.5 Gen: awake on vent following commands, answering Y/N questions appropriately HEENT: OGT, NGT, dry MM, conjunctival edema RUE PICC line, R arm swelling, but less so yesterday L radial A line CV: tachy irr Chest : no crackles, decreased BS L>R Abdomen: distension, BS present Ext: anasarca, R arm swelling as above Skin: pallor Neuro, moving all ext - Time Spent With Patient Time Spent with Patient: greater than 35 minutes (family updated at bedside) Time Spent with Patient: Greater than 35 minutes spent on this patients care, greater than 50% of time spent counseling, educating, and coordinating care regarding the above mentioned plan. ICD10 Worksheet Patient Problems: Problems Problem Status Onset Pneumonia Acute Sepsis Acute
--- NOTE | 2017-11-20 10:26 | HOSPPROG ---
Hospitalist Progress Note Assessment/Plan: DIAGNOSES: # s/p Cardiac arrest went into rapid a fib in OR, which led to decompensation and pulselessness; ROSC with CPR * Appears to likely have good neurologic recovery but currently still intubated so examination incomplete # Septic shock: multiple sources including pneumonia and urinary tract (this was the primary admitting medical condition) * has been ok off pressor now for 24 hours, much better capillary refill today and hands and feet warmer * Continued improvement in respiratory failure, improving renal failure # Acute hypoxic resp failure / suspected aspiration pneumonia * Still on mechanical ventilator, continues to do well CPAP * Will hope to extubate possibly today # E coli bacteremia, sources suspected to be urinary: * Invanz discontinued due to thrombocytopenia, now on Unasyn (which is also appropriate for suspected aspiration pneumonia) * Repeat cultures negative # Atrial fibrillation with RVR: cardioverted x 4 but unable to hold sinus despite ongoing amio drip * Has been tolerating this reasonably well at this time it does not seem that further attempts set electric cardioversion will be fruitful * Rate controlled improved today but will give some digoxin to try and help with that, and as he gets further out from pressors and we see that he is tolerating diuresis with no hypotension will try some beta-dimitry; so far the doses of diltiazem that he has been given have been any factive # new DVT left arm at tip of PICC catheter * Complicates matters as he is unable to be anticoagulated with severe thrombocytopenia and post hemorrhagic anemia, and is in need of ongoing PICC catheter * I reviewed with Dr. Gama and Dr. Ott will leave PICC catheter in at this time follow closely # Acute blood loss anemia, severe requiring transfusions * large bladder hematoma, ? if caused by skinner or stone * stones and clot evacuated by Dr Mtz 11/16 * transfused 1 unit RBC 11/17, 2nd unit 11/18 (his medication for myeloma causes abnormalities of the blood cross matching test for transfusions, causing apparent false positive incompatibility ease that cannot be interpreted, so any transfusions are given as what is felt as the least incompatible unit available) * Hemoglobin slightly higher today than yesterday # acute thrombocytopenia, worsening daily * Slightly better 39,000 today; ? 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 Surgical site healing well. staple can be removed # Chronic steroid use: stress-dose steroids PLANS: -continue antibiotics with Unasyn -continue diuresis, albumin -attempt extubation today -continue tube feedings for now with free fluid, follow sodium closely -will not remove PICC catheter, elevate left arm -continue off anticoagulant -follow-up platelets closely, Invanz discontinued in case that is the cause of low platelets -follow hemoglobin closely -DVT prophylaxis at this point is mechanical due to his bleeding issues and low platelets In addition to hospitals rounds today I saw this patient on interdisciplinary rounds and plan I reviewed in detail with Dr. Caleb Gama, Dr Li Ott, and Dr. Caterina Kang today SUBJECTIVE: Patient on vent, with some sedation but is awake enough to shake his head yes and no Shake his head yes when asked if he is comfortable OBJECTIVE Vitals reviewed: Blood pressures in reasonable range right now still on pressor , heart rate good, respirations per ventilator, temperature 37.3 degrees [employer], my review: Sinus Exam: Awake but largely sedated, ET tube in good position and well secured, IV site looks good, Skinner in place with clear yellow urine skin warm dry color ok resps on CPAP on vent right now, week but not very tachypneic lungs very diminished but clear BSs heart regular abd soft mildly distended, bowel sounds present limbs warm, still significant edema of legs iv site ok Laboratory data: I reviewed all laboratory dated today. Stable overall with slight improvement and platelets Microbiology data: Most recent blood cultures negative at 4 days Objective: Vital Signs Temp Pulse Resp BP Pulse Ox 36.6 C 108 H 20 116/60 100 11/20/17 08:09 11/20/17 08:09 11/20/17 08:09 11/20/17 08:00 11/20/17 08:09 Laboratory Results 11/20/17 04:20 11/20/17 04:20 11/19/17 11/20/17 11/21/17 06:59 06:59 06:59 Intake Total 5523.6 3451.5 Output Total 1475 4025 Balance 4048.6 -573.5 PT 24.4 SEC (12.0-15.0) H D 11/16/17 04:00 INR 2.19 (0.83-1.16) H 11/16/17 04:00 - Time Spent With Patient Time Spent with Patient: greater than 35 minutes Time Spent with Patient: Greater than 35 minutes spent on this patients care, greater than 50% of time spent counseling, educating, and coordinating care regarding the above mentioned plan. ICD10 Worksheet Patient Problems: Problems Problem Status Onset Pneumonia Acute Sepsis Acute
[2017-11-20] MEDS: AMIODARONE HCL 200 MG TAB TUBE SCH ×2 (10:30→21:32)
--- NOTE | 2017-11-20 11:39 | SOAPPROG ---
SOAP Progress Note Assessment/Plan: Assessment/Plan: 72 man w progressive aggressive IgA nonsecretory multiple myeloma who p/w septic shock 1. Septic shock - E. coli bacteremia from urinary source (skinner 2 weeks ago), PNA, Enterovirus Pressors, IVF and IV abx ID following remains critically ill but improving 2. Urinary retention - due to large bladder hematoma/stone likely occurred as result of Skinner trauma on Xarelto OR 11/16 for clot removal and irrigation clean urine outpt at this time 3. Syncope - due to #1 less likely from thromboembolism DVT LE negative 4. IgA MM, non secretory at this point - s/pC1D5 kelly/velcade/dex will hold Velcade do to #1 continue stress dose steroids 5. Anemia - multifactorial monitor need for PRBCs - should get today daratumumab directly binds to CD38 on reagent red cells used in the blood bank, causing the false positive antibody screens using least incompatible blood as needed 6. Thrombocytopenia - multifactorial no further bleeding,plts a bit better today, ? sepsis, ? drug 7. DVT, PIC associated r arm, holding anticoag for now 8. Resp failure, will be extubated today 9. A fib, per cards updated family at bedside, about 25 min 11/19/17 13:13 11/19/17 13:16 11/20/17 11:35 Subjective: Intubated, alert Objective: Vital Signs Temp Pulse Resp BP Pulse Ox 97.9 F 113 H 17 121/60 H 100 11/20/17 08:09 11/20/17 11:00 11/20/17 11:00 11/20/17 11:00 11/20/17 11:00 Laboratory Results 11/20/17 04:20 11/20/17 04:20 11/19/17 11/20/17 11/21/17 05:59 05:59 05:59 Intake Total 5523.6 3451.5 314.7 Output Total 1475 4025 375 Balance 4048.6 -573.5 -60.3 PT 24.4 SEC (12.0-15.0) H D 11/16/17 04:00 INR 2.19 (0.83-1.16) H 11/16/17 04:00 ICD10 Worksheet Patient Problems: Problems Problem Status Onset Pneumonia Acute Sepsis Acute
--- NOTE | 2017-11-20 11:39 | PDCARPN ---
Cardiology Progress Note Assessment/Plan: Assessment: 1. Atrial fibrillation with rapid ventricular response 2. Cardiomyopathy with LVEF of 42% on echocardiogram performed 11/15/2017 3. Sepsis with E coli bacteremia 4. Acute blood-loss anemia 5. Acute respiratory failure currently intubated 6. Multiple myeloma 7. Thrombocytopenia 8. Right upper extremity DVT at site of PICC line as well as cephalic vein. Plan: -will complete amiodarone drip this morning -start amiodarone 400 mg p.o. B.i.d. -would not recommend addition of further digoxin during amiodarone loading -would not start beta-blockers or calcium channel blockers -no further attempt of cardioversion at this time unless he becomes hemodynamically unstable -remains off of anticoagulation in the setting of acute blood loss anemia and thrombocytopenia -will continue to follow along with his care 11/20/17 11:35 Subjective: Mr. Mathews returned atrial fibrillation with rates in the 120s to 130s within 45 min of cardioversion last evening. His cardioversion was successful with a single biphasic, synchronized shock of 200 joules with mormon of sinus rhythm in the mid 60s. He remains on amiodarone drip bed 0.5 milligram/minute at this time. Rates have been as low as 105 and as high as 138 during my evaluation. Blood pressure remains stable. He is off of all pressor support for the last 24 hr. With 5 cardioversions in the last 5 days, I do not see any further benefit of attempts at cardioversion at this time unless he becomes hemodynamically unstable. Reviewed/Discussed With: family, hospitalist, multidisciplinary team Objective: Vital Signs (8 Hrs) Temp Pulse Resp BP Pulse Ox 11/20/17 11:00 113 H 17 121/60 H 100 11/20/17 10:00 130 H 27 H 122/65 H 100 11/20/17 09:00 128 H 23 H 119/62 100 11/20/17 08:09 36.6 C 108 H 20 100 11/20/17 08:00 128 H 23 H 116/60 100 11/20/17 07:00 124 H 20 111/63 100 11/20/17 06:00 130 H 20 116/63 100 11/20/17 05:00 127 H 20 110/57 L 100 11/20/17 04:38 133 H 20 100 Intake/Output (24 Hrs) 11/19/17 11/20/17 11/21/17 05:59 05:59 05:59 Intake Total 5523.6 3451.5 314.7 Output Total 1475 4025 375 Balance 4048.6 -573.5 -60.3 Intake: IV Infused (ml) 3954.6 1254.5 214.7 Albumin 25% 200 ml @ As 200 Directed IV ONCE ONE Rx#: [id number] Amiodarone HCl 200 ml @ 418 33.333 mls/hr IV ONCE ONE Rx#:[id number] D5w 1/2 Ns 1,000 ml @ 50 498.5 mls/hr IV CONT CHRISTINA Rx#: [id number] D5w Ns 1,000 ml @ 100 mls 2534 /hr IV CONT CHRISTINA Rx#: [id number] Norepinephrine Bitartrate 1115 146 4 mg In Ns 500 ml @ Per Protocol IV CONT CHRISTINA Rx#: [id number] Propofol/Emulsion 100 ml 33 @ Titrate IV CONT CHRISTINA Rx# :[id number] Vasopressin 25 unit In Ns 177 250 ml @ 24 mls/hr IV CONT CHRISTINA Rx#:[id number] fentaNYL 1,000 mcg In Ns 95.6 192 14.7 100 ml @ As Directed IV CONT CHRISTINA Rx#:[id number] Tube Feeding (ml) 719 1397 Tube Flush (ml) 500 800 100 Packed Red Blood Cells ( 350 ml) Output: Urine (ml) 1475 4025 375 Catheter 1475 4025 375 Other: Weight 76.8 kg 75.2 kg Number of Stools Catheter 1 Result Diagrams: 11/20/17 04:20 11/20/17 04:20 - Physical Exam Constitutional: other (Intubated, opens eyes to stimuli. Appropriate eye contact.) Cardiovascular: no murmurs, no rubs, no gallops, irregularly irregular Respiratory: no crackles, reduced air movement ICD10 Worksheet Patient Problems: Problems Problem Status Onset Pneumonia Acute Sepsis Acute
[2017-11-20] MEDS ORDERED: POTASSIUM Cl (KCl) 100 ML IV SCH (14:00)
[2017-11-20] MEDS: HYDROmorphONE/DILAUDID 1 MG/ML INJ IVP PRN (14:53)
[2017-11-20] MEDS: ACETAMINOPHEN 650 MG/20.3 ML UDCUP TUBE PRN (14:56)
[2017-11-20] MEDS ORDERED: ALBUMIN 25% 100 ML IV ONE (17:12)
[2017-11-21] MEDS ORDERED: POTASSIUM Cl (KCl) 50 ML IV ONE (01:27)
[2017-11-21] MEDS ORDERED: POTASSIUM CL 20 MEQ/15 ML UDCUP TUBE ONE ×3 (01:45→15:15)
[2017-11-21] MEDS ORDERED: POTASSIUM Cl (KCl) 100 ML IV SCH (05:22)
[2017-11-21] MEDS: AMPICILLIN/SULBACTAM 3 GM in NS 100 ML IV SCH ×3 (06:18→17:46)
[2017-11-21] MEDS: INSULIN REGULAR HUMAN 100 UNIT/ML UNIT SC SCH ×3 (06:19→17:47)
[2017-11-21] MEDS: AMIODARONE HCL 200 MG TAB TUBE SCH ×2 (08:09→21:16)
[2017-11-21] MEDS: MICAFUNGIN NA 100 MG in NS 100 ML IV SCH (08:58)
[2017-11-21] MEDS ORDERED: MICAFUNGIN NA 100 MG in NS 100 ML IV SCH ×2 (09:00→10:00)
[2017-11-21] MEDS ORDERED: ALTEPLASE 2 MG VIAL IVP PRN (09:57)
--- NOTE | 2017-11-21 10:03 | PCMIDPN ---
Assessment/Plan: Assessment/Plan: * Sepsis due to E coli bacteremia of urinary etiology status post operative bladder irrigation and removal of bladder stone: Marked clinical improvement versus initial evaluation. Repeat blood cultures do not show evidence of persistent E coli. Continue Unasyn with anticipated 2 week course of antibiotic therapy. * Candidemia: 1/2 cultures from 11/17/17 with growth of Milka albicans. Potential etiologies are related to initial sepsis presentation versus line- related infection. Requires change of PICC line to new site. Will obtain catheter tip culture. Patient has been initiated on micafungin. Will repeat blood cultures on a.m. of 09/23/2017 to assess for clearing of bacteremia. At some point will also require ophthalmological evaluation to ensure no evidence of endophthalmitis. * Elevated liver enzymes: May be related to previous hypotension. Will continue to follow over time. * Probable aspiration pneumonia: Covered by Unasyn. * Respiratory PCR positive for entero/rhino: Doubt contributing to current presentation with pulmonary infiltrate being less typical for viral etiology. * Status post recent left lower extremity orthopedic fixation: Will need to follow carefully in the setting of bacteremia and candidemia as at risk for seeding of newly placed hardware. 11/21/17 09:59 11/21/17 10:03 11/21/17 10:04 Subjective: Patient"feels terrible". Further clinical course has been reviewed noting growth of Milka in blood cultures from 11/17/2017. Objective: Vital Signs Temp Pulse Resp BP Pulse Ox 35.9 C L 133 H 33 H 112/62 92 11/20/17 20:00 11/21/17 08:00 11/21/17 08:00 11/21/17 08:00 11/21/17 08:00 Microbiology 11/17/17 18:28 Blood Panel (PCR) - Final Blood Milka Albicans Laboratory Results 11/20/17 04:20 11/21/17 04:20 11/20/17 11/21/17 11/22/17 05:59 05:59 05:59 Intake Total 3451.5 3673.6 Output Total 4025 3075 Balance -573.5 598.6 Unasyn # 3, antibiotics # 5 Micafungin # 1 Blood cultures 11/17/2017 1/2 sets Milka albicans Laboratory Tests 11/16/17 11/21/17 13:55 04:20 Magnesium 1.9 Total Bilirubin 1.4 AST 109 H ALT 354 H Alkaline Phosphatase 194 H Albumin 2.3 L Urine Legionella Ag Negative Ur Strep pneumoniae Ag Negative - Physical Exam General Appearance: alert, no apparent distress, non-toxic EENT: No scleral icterus, No thrush, No conjunctival petechiae Respiratory: respiratory distress, wheezing (Bilateral expiratory) Cardiac/Chest: regular rate, rhythm, No systolic murmur Extremities: other (Left lower extremity incision with scant serous drainage; incision intact without surrounding erythema) Abdomen: non-tender, No distended Skin: No embolic lesions - Line/s RUE PICC Lines: No drainage, No erythema - Time Spent With Patient Time Spent with Patient: greater than 35 minutes Time Spent with Patient: Greater than 35 minutes spent on this patients care, greater than 50% of time spent counseling, educating, and coordinating care regarding the above mentioned plan. ICD10 Worksheet Patient Problems: Problems Problem Status Onset Pneumonia Acute Sepsis Acute
--- NOTE | 2017-11-21 11:27 | WOCRNPDOC ---
WOCRN Advanced Assessment Note - Skin Integrity Problem, Advanced Assess Posterior Scrotum Incont Assoc Dermatitis Exudate Amount: Minimal Exudate Color: Red Exudate Characteristic(s): Serosanguinous Integumentary Issue Intervention: Lotion/Cream Applied (Calazime by nursing) Josee Wound Tissue: Erythema, Raw, Denuded, Painful/Tender Site Measurement - Head-to-Toe Length X Width X Depth (cm): mutiple diffuse openings up to 0.2x0.2x0.1 Peripheral Edema Location & Description: Generalized scrotal edema Skin Integrity Problem Comment: Patient has multiple painful openings related to fecal incontinence. Scrotum has been treated with calazime and moisture barrier cream, but repeated cleanings re-open the wounds resulting in mild localized bleeding. Fecal incontinence management discussed with Maria Luisa ANDERSON. Maria Luisa stated that family asked about the possibility of a rectal tube. Patient is receiving tube feeds, and rate will be slowed to determine if this helps reduce rate of incontinence. Recommend to continue use of "hammock" for scrotum to relieve pressure and exposure to stool.Further interventions will be implemented as necessary.
--- NOTE | 2017-11-21 12:49 | PDCARPN ---
Cardiology Progress Note Assessment/Plan: Assessment: 1. Atrial fibrillation with rapid ventricular response 2. Cardiomyopathy with LVEF of 42% on echocardiogram performed 11/15/2017 3. Sepsis with E coli bacteremia 4. Acute blood-loss anemia 5. Acute respiratory failure currently intubated 6. Multiple myeloma 7. Thrombocytopenia 8. Right upper extremity DVT at site of PICC line as well as cephalic vein. 9. Elevated LFT's Plan: -Contineu amiodarone 400 mg p.o. B.i.d. -would not start beta-blockers or calcium channel blockers -no further attempt of cardioversion at this time unless he becomes hemodynamically unstable -remains off of anticoagulation in the setting of acute blood loss anemia and thrombocytopenia -will continue to follow along with his care -Follow LFT's 11/20/17 11:35 11/21/17 12:48 Subjective: Mr. Mathews his converted spontaneously back to his normal sinus rhythm with rates in the 60s this morning. He was extubated successfully yesterday. He remains hemodynamically stable. Off of pressors. Digoxin has been discontinued. He remains on amiodarone 400 mg p.o. B.i.d. no cardiac complaints this morning. Reviewed/Discussed With: family, multidisciplinary team Objective: Vital Signs (8 Hrs) Temp Pulse Resp BP Pulse Ox 11/21/17 12:00 37.2 C 79 25 H 126/53 H 92 11/21/17 10:00 76 29 H 120/49 L 95 11/21/17 08:00 133 H 33 H 112/62 92 11/21/17 06:00 128 H 26 H 109/54 L 94 Intake/Output (24 Hrs) 11/20/17 11/21/17 11/22/17 05:59 05:59 05:59 Intake Total 3451.5 3673.6 Output Total 4025 3075 Balance -573.5 598.6 Intake: Oral (ml) 10 IV Infused (ml) 1254.5 1628.6 Albumin 25% 200 ml @ As 200 Directed IV ONCE ONE Rx#: [id number] Amiodarone HCl 200 ml @ 418 78.9 33.333 mls/hr IV ONCE ONE Rx#:[id number] D5w 1/2 Ns 1,000 ml @ 50 498.5 1335 mls/hr IV CONT CHRISTINA Rx#: [id number] Norepinephrine Bitartrate 146 4 mg In Ns 500 ml @ Per Protocol IV CONT CHRISTINA Rx#: [id number] fentaNYL 1,000 mcg In Ns 192 14.7 100 ml @ As Directed IV CONT CHRISTINA Rx#:[id number] Tube Feeding (ml) 1397 1010 Tube Flush (ml) 800 1025 Output: Urine (ml) 4025 3075 Catheter 4025 3075 Other: Weight 75.2 kg 74.8 kg Number of Stools Catheter 1 1 Incontinence 1 Result Diagrams: 11/20/17 04:20 11/21/17 12:00 - Physical Exam Constitutional: no apparent distress Neurologic: AAOx3 Psychiatric: cooperative, following commands ICD10 Worksheet Patient Problems: Problems Problem Status Onset Pneumonia Acute Sepsis Acute
--- NOTE | 2017-11-21 14:08 | SOAPPROG ---
SOAP Progress Note Assessment/Plan: Assessment: 1.) Septic shock from E. coli urosepsis 2.) Resp Failure 3.) A fib with Cardiomyopathy 4.) Multiple Myeloma on Daratumumab (Darzalex) , non-secretory, IgA subtype causing marrow related myelosuppression. 5.) Candidemia 6.) Aspiration pneumonia 7.) Elevated LFTs 8.) DVT R arm 9.) T-penia, complicating atrial fibrillation and DVT medical management. Plan: At this point, will follow ICU course. Agree to withhold anticoagulation given degree of Thrombocytopenia. 11/21/17 14:08 Subjective: Family at bedside and seems confused at this time. Objective: Pt in NAD. Conversant with family member. VSS,Afebrile, in NSR HEENT- anicteric, no facial assymetry Neck- supple Chest - clear anteriorly CVS- RRR, S1 S2 - normal ABD- BS+ EXT- LE and UE edematous, but well perfused and warm Labs as noted here: PLT 39, WBC 15.33, Hgb 8.4 Vital Signs Temp Pulse Resp BP Pulse Ox 37.2 C 79 25 H 126/53 H 92 11/21/17 12:00 11/21/17 12:00 11/21/17 12:00 11/21/17 12:00 11/21/17 12:00 Microbiology 11/17/17 18:28 Blood Panel (PCR) - Final Blood Milka Albicans Laboratory Results 11/20/17 04:20 11/21/17 12:00 11/20/17 11/21/17 11/22/17 05:59 05:59 05:59 Intake Total 3451.5 3673.6 Output Total 4025 3075 Balance -573.5 598.6 PT 24.4 SEC (12.0-15.0) H D 11/16/17 04:00 INR 2.19 (0.83-1.16) H 11/16/17 04:00 ICD10 Worksheet Patient Problems: Problems Problem Status Onset Pneumonia Acute Sepsis Acute
--- NOTE | 2017-11-21 14:28 | PDINTPN ---
[employer] Progress Note Assessment/Plan: Assessment/plan: 72 M with known multiple myeloma diagnosed 2012 with 30% bone marrow involvement treated with chemotherapy and focused XRT, but declined HSCT. 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 This was resected by Dr. Amaral in early November. He was admitted to [facility] 11/15/17 with septic shock and E. Coli bacteremia requiring pressors. He subsequently developed anuria from a stojne and hematuria (on Xarelto) so was taken to the OR for removal. This was complicated by cardiac arrest and brief CPR, followed by rapid afib which has been refractory to CV and multiple medications until when he converted to NSR. He was intubated in the OR, but extubated 11/20 without difficulty. Initial blood cultures 11/15 grew sensitive E. Coli, but fu cx 11/17 grew Milka. * Septic shock from E. Coli bacteremia and presumed urinary source. No longer on pressors with hemodynamic stability and covered with Unasyn. Aspiration PNA has also been suggested as a comorbidity, but a smaller contributor IMHO. * Bacteremia/fungemia- Milka only on second culture. Agree with line chage and Micafungin therapy as per ID. * Afib- Now in NSR and no mention of infiltrate on echo such as what might occur with amyloid associated with MM. Remains stable on PO amiodarone. No changes per cardiology. * Acute respiratory failure related to all of the above and possible contribution from enterovirus. Extubated without difficulty ad now on low flow NC. Encourage IS and OOB when tolerated. No diuretics * Anemia/thrombocytopenia- presumed related to Invanz and likely susceptible BM. Cross matching blood has been challenging, but little transfusion required. Recheck in AM. * DVT of RUE associated with PICC. Anticoag held 2/2 TCP; may initiate depending on recovery of platelets. * TAVON- resolved * Cardiac arrest- reportedly very brief and I dont anticipate neurologic sequelae. Continue to observe. * * Critical care time 45 minutes for evaluation of multiple life-threatening comorbidities Subjective: No complaints after extubation 11/20, but mild confusion Objective: Vital Signs Temp Pulse Resp BP Pulse Ox 37.2 C 79 25 H 126/53 H 92 11/21/17 12:00 11/21/17 12:00 11/21/17 12:00 11/21/17 12:00 11/21/17 12:00 Microbiology 11/17/17 18:28 Blood Panel (PCR) - Final Blood Milka Albicans Laboratory Results 11/20/17 04:20 11/21/17 12:00 11/20/17 11/21/17 11/22/17 05:59 05:59 05:59 Intake Total 3451.5 3673.6 Output Total 4025 3075 Balance -573.5 598.6 PT 24.4 SEC (12.0-15.0) H D 11/16/17 04:00 INR 2.19 (0.83-1.16) H 11/16/17 04:00 Physical Exam - Physical Exam General Appearance: alert, no apparent distress EENT: PERRL/EOMI Neck: supple Respiratory: lungs clear, normal breath sounds, decreased breath sounds, No respiratory distress, No accessory muscle use Cardiac/Chest: regular rate, rhythm, edema Abdomen: non-tender, soft, No distended Skin: normal color, warm/dry, No cyanosis Lymphatic: no adenopathy Extremities: pedal edema Neuro/Psych: alert, cognition abnormalities ICD10 Worksheet Patient Problems: Problems Problem Status Onset Pneumonia Acute Sepsis Acute
--- NOTE | 2017-11-21 14:31 | ASMTCMCOM ---
CM Note CM Note Notes: Patient, , and sister had a family meeting today with superintendent electric power and recreational vehicle resort manager. I wasn't able to attend, but I did speak with them about possible discharge plans. I anticipate that patient will need SNF; PT has only seen him once but also anticipates need for SNF. I gave patient's a list of facilities near [place]. She will visit/research and let us know what she thinks. We will handle referrals. If needs change, we'll work with family to help them get the services they need. Date Signed: 11/21/2017 02:30 PM Electronically Signed By:Jocelyne Lemus RN
[2017-11-21 14:58] LABS: PLATELET COUNT 63 10^3/uL (150-400)
--- NOTE | 2017-11-21 17:47 | HOSPPROG ---
Hospitalist Progress Note Assessment/Plan: * Septic shock - off pressors -source - aspiration pneumonia vs. UTI * Acute respiratory failure s/p extubation * Cardiac arrest - brief CPR/Epi * Afib -amiodarone -s/p cardioversion * Metabolic encephalopathy - some hallucinations * Ecoli bacteremia -Unasyn * Milka bacteremia -micafungin -eventual ophtho consult rule out endophthalmitis * PICC line related DVT -no anticoagulation due to severe thrombocytopenia -resume Xarelto when platelets better -PICC changed to other side due to fungemia * Kidney stone with bladder hematoma s/p evacuation Dr. 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 -concerning for possible seeding of hardware with bacteremia * Thrombocytopenia * Chronic steroids - s/p stress dose * Dysphagia - NPO * Volume overload -Lasix when stable * Hypernatremia - Na 155 -increase H2O down NGT * Enterovirus - isolation Subjective: Confused, was up all night last night Objective: Vital Signs Temp Pulse Resp BP Pulse Ox 37.2 C 74 34 H 140/55 H 94 11/21/17 12:00 11/21/17 16:00 11/21/17 16:00 11/21/17 16:00 11/21/17 16:00 Microbiology 11/17/17 18:28 Blood Panel (PCR) - Final Blood Milka Albicans Laboratory Results 11/21/17 14:50 11/21/17 12:00 11/20/17 11/21/17 11/22/17 05:59 05:59 05:59 Intake Total 3451.5 3673.6 Output Total 4025 3075 Balance -573.5 598.6 PT 24.4 SEC (12.0-15.0) H D 11/16/17 04:00 INR 2.19 (0.83-1.16) H 11/16/17 04:00 CXR - PICC in good position case d/w Dr. Mtz regarding plan of ICU care - Physical Exam Constitutional: no apparent distress, appears nourished, not in pain Cardiovascular: regular rate and rhythym, no murmur, rub, or gallop, edema Respiratory: no respiratory distress, no rales or rhonchi, clear to auscultation Gastrointestinal: normoactive bowel sounds, soft, non-tender abdomen, no palpable masses Skin: no rashes or abrasions, no fluctuance, no induration Neurologic: No AAOx3, No weakness, No numbness Psychiatric: poor insight, poor judgement, poor memory, No interacting appropriately, No suicidal ideation ICD10 Worksheet Patient Problems: Problems Problem Status Onset Pneumonia Acute Sepsis Acute
[2017-11-21] MEDS: ACYCLOVIR 400 MG TAB PO SCH (21:16)
[2017-11-21] MEDS: MELATONIN 3 MG TAB PO SCH (21:16)
[2017-11-22] MEDS: LORazepam 2 MG/ML INJ IVP PRN (00:04)
[2017-11-22] MEDS: AMPICILLIN/SULBACTAM 3 GM in NS 100 ML IV SCH ×4 (00:05→18:02)
[2017-11-22] MEDS: INSULIN REGULAR HUMAN 100 UNIT/ML UNIT SC SCH ×4 (03:57→18:14)
[2017-11-22] MEDS: HYDROmorphONE/DILAUDID 1 MG/ML INJ IVP PRN ×3 (04:04→19:18)
[2017-11-22] MEDS ORDERED: POTASSIUM Cl (KCl) 50 ML IV ONE ×2 (05:30→22:17)
[2017-11-22] MEDS ORDERED: POTASSIUM CL 20 MEQ/15 ML UDCUP TUBE ONE (05:45)
[2017-11-22 06:32] LABS: PLATELET COUNT 66 10^3/uL (150-400)
[2017-11-22] MEDS: AMIODARONE HCL 200 MG TAB TUBE SCH (07:32)
[2017-11-22] MEDS: MICAFUNGIN NA 100 MG in NS 100 ML IV SCH (08:21)
[2017-11-22] MEDS: ACYCLOVIR 400 MG TAB PO SCH ×2 (08:22→20:14)
--- NOTE | 2017-11-22 09:21 | SOAPPROG ---
SOAP Progress Note Assessment/Plan: Assessment: Problem List (imported from Dr. Krishnan 1. Atrial fibrillation with rapid ventricular response 2. Cardiomyopathy with LVEF of 42% on echocardiogram performed 11/15/2017 3. Sepsis with E coli bacteremia 4. Acute blood-loss anemia 5. Acute respiratory failure currently intubated 6. Multiple myeloma 7. Thrombocytopenia 8. Right upper extremity DVT at site of PICC line as well as cephalic vein. 9. Elevated LFT's 11/22/17 09:18 Impression: Recurrent atrial fibrillation with rapid ventricular response on oral amiodarone. This is in the setting of a mild cardiomyopathy ejection fraction 42% based on echo from the 15 of November. He is relatively asymptomatic resting flat. He has normal blood pressure. Will plan for repeat loading with IV amiodarone for control of rate and rhythm. Consideration of digoxin. At this point no indication for cardioversion. Replete electrolytes including potassium magnesium. Subjective: Patient unable to give clear history due to mild delirium Objective: Medications Generic Name Dose Route Start Last Admin Trade Name Freq PRN Reason Stop Dose Admin Amiodarone HCl 400 mg 11/20/17 10:00 11/22/17 07:32 Amiodarone Hcl TUBE 05/19/18 09:59 400 mg BID CHRISTINA Vital Signs Temp Pulse Resp BP Pulse Ox 36.4 C 133 H 16 136/81 H 96 11/22/17 08:00 11/22/17 08:00 11/22/17 08:00 11/22/17 08:00 11/22/17 08:00 Microbiology 11/17/17 18:28 Blood Panel (PCR) - Final Blood Milka Albicans Laboratory Results 11/22/17 06:20 11/22/17 04:00 11/21/17 11/22/17 11/23/17 05:59 05:59 05:59 Intake Total 3673.6 3117 Output Total 7828 646 725 Balance 598.6 -625 2392 PT 24.4 SEC (12.0-15.0) H D 11/16/17 04:00 INR 2.19 (0.83-1.16) H 11/16/17 04:00 Physical Exam - Physical Exam General Appearance: unresponsive, cachetic, thin Respiratory: normal breath sounds, rhonchi Cardiac/Chest: irregularly irregular Abdomen: soft ICD10 Worksheet Patient Problems: Problems Problem Status Onset Pneumonia Acute Sepsis Acute
[2017-11-22] MEDS ORDERED: AMIODARONE HCL 100 ML IV ONE ×2 (09:22→17:04)
[2017-11-22] MEDS: DIGOXIN 500 MCG/2 ML AMP IVP SCH ×3 (10:41→12:45)
[2017-11-22] MEDS ORDERED: D5W 1,000 ML IV SCH (14:00)
[2017-11-22] MEDS: FUROSEMIDE 20 MG/2 ML VIAL IVP SCH (14:15)
[2017-11-22] MEDS: oxyCODONE IR 5 MG TAB PO PRN ×2 (15:09→20:14)
--- NOTE | 2017-11-22 15:18 | SOAPPROG ---
SOAP Progress Note Assessment/Plan: Assessment: 1.) Septic shock from E. coli urosepsis 2.) Resp Failure 3.) A fib with Cardiomyopathy 4.) Multiple Myeloma on Daratumumab (Darzalex) , non-secretory, IgA subtype causing marrow related myelosuppression. No active TX in the immediate future. 5.) Candidemia 6.) Aspiration pneumonia 7.) Elevated LFTs 8.) DVT R arm 9.) T-penia, complicating atrial fibrillation and DVT medical management. 10.) COPD/ hypoxemia Plan: At this point, will follow ICU course. Agree to withhold anticoagulation given degree of Thrombocytopenia. 11/22/17 15:18 Subjective: Pt. somnolent and his is at the bedside and reports he has not been in distress Objective: Afebrile, Afib with RVR in 130's-150's Pt somnolent, but arousable HEENT- pale, no oral thrush Neck- supple Chest upper airway rhonchi + bilaterally CVS- Afib with RVR ABD- BS+, soft EXT- no change in dependent edema. Labs: as noted here: PLT 66 Hgb 8.4 BUN/Cr 50/1.2 Vital Signs Temp Pulse Resp BP Pulse Ox 36.4 C 138 H 16 149/76 H 92 11/22/17 08:00 11/22/17 14:00 11/22/17 14:00 11/22/17 14:00 11/22/17 14:00 Microbiology 11/17/17 18:28 Blood Panel (PCR) - Final Blood Milka Albicans Laboratory Results 11/22/17 06:20 11/21/17 11/22/17 11/23/17 05:59 05:59 05:59 Intake Total 3673.6 3117 Output Total 3075 625 725 Balance 598.6 -625 2392 PT 24.4 SEC (12.0-15.0) H D 11/16/17 04:00 INR 2.19 (0.83-1.16) H 11/16/17 04:00 ICD10 Worksheet Patient Problems: Problems Problem Status Onset Pneumonia Acute Sepsis Acute
--- NOTE | 2017-11-22 15:23 | PDINTPN ---
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 This was resected by Dr. Amaral in early November. He was admitted to [facility] 11/15/17 with septic shock and E. Coli bacteremia requiring pressors. He subsequently developed anuria from a stojne and hematuria (on Xarelto) so was taken to the OR for removal. This was complicated by cardiac arrest and brief CPR, followed by rapid afib which has been refractory to CV and multiple medications until when he converted to NSR. He was intubated in the OR, but extubated 11/20 without difficulty. Initial blood cultures 11/15 grew sensitive E. Coli, but fu cx 11/17 grew Milka. * Septic shock from E. Coli bacteremia and presumed urinary source. No longer on pressors with hemodynamic stability and covered with Unasyn. Aspiration PNA has also been suggested as a comorbidity, but a smaller contributor IMHO. * Bacteremia/fungemia- Milka only on second culture. PICC line changed and started Micafungin. * Afib- resumed RVR today and was treated with additional amiodarone bolus and planning restarting digoxin. * Acute respiratory failure related to all of the above and possible contribution from enterovirus. Extubated without difficulty ad now on low flow NC. Encourage IS and OOB when tolerated. * Anemia/thrombocytopenia- presumed related to Invanz and likely susceptible BM. Cross matching blood has been challenging, but little transfusion required. Improving slightly today. No transfusion required. * Hypernatremia- worseing dsespite increase in FW via NGT. Will start D5W today and manage BG as needed as well as give low dose lasix in hopes of not only improving sodium but reducing severe edema. * DVT of RUE associated with PICC. Anticoag held 2/2 TCP; may initiate depending on recovery of platelets. * TAVON- resolved * Cardiac arrest- reportedly very brief and I dont anticipate neurologic sequelae. Continue to observe. * * 11/22/17 15:17 Subjective: More somnolent for my exam, but given dilaudid for pain during roll just before my visit. Objective: Vital Signs Temp Pulse Resp BP Pulse Ox 36.4 C 138 H 16 149/76 H 92 11/22/17 08:00 11/22/17 14:00 11/22/17 14:00 11/22/17 14:00 11/22/17 14:00 Microbiology 11/17/17 18:28 Blood Panel (PCR) - Final Blood Milka Albicans Laboratory Results 11/22/17 06:20 11/21/17 11/22/17 11/23/17 05:59 05:59 05:59 Intake Total 3673.6 3117 Output Total 3075 625 725 Balance 598.6 -625 2392 PT 24.4 SEC (12.0-15.0) H D 11/16/17 04:00 INR 2.19 (0.83-1.16) H 11/16/17 04:00 Physical Exam - Physical Exam General Appearance: no apparent distress, other (somnolent, but easily aroused) EENT: PERRL/EOMI Neck: supple Respiratory: lungs clear, normal breath sounds, decreased breath sounds, No respiratory distress, No accessory muscle use Cardiac/Chest: edema (3+), tachycardia, irregularly irregular Abdomen: non-tender, soft, No distended Skin: normal color, warm/dry, No cyanosis Lymphatic: no adenopathy Extremities: pedal edema Neuro/Psych: cognition abnormalities ICD10 Worksheet Patient Problems: Problems Problem Status Onset Pneumonia Acute Sepsis Acute
--- NOTE | 2017-11-22 15:55 | PCMIDPN ---
Assessment/Plan: #Sepsis : off pressors, extubated #Ecoli bacteremia --plan 10-14 days of therapy, day #7 today # Aspiration PNA, L infiltrate extubated now with decreasing PCT --treatment will be covered w duration of bacteremia # Candidemia: on micafungin, really too early to be PICC line infection, suspect other source such as GI or urinary. PICC line removed. Will check blood cultures tomorrow. # Leukocytosis: stable today # Enterovirus: continue resp precautions # Thrombocytopenia: improving, multifactorial # Multiple Myeloma, relapsed : last chemo 11/14 Abx: #01/14 Unasyn 3gm IV q6h, #3 s/p 3 days ertapenem 1gm IV daily S/p 2 days Ceftriaxone micro 11/15 blood cx e coli 11/15 Ucx neg 11/17 blood cx (07/05) milka albicians 11/21 cath tip: NGTD Subjective: extubated off pressors a little confused intermittently denies pain Objective: Vital Signs Temp Pulse Resp BP Pulse Ox 36.4 C 138 H 16 149/76 H 92 11/22/17 08:00 11/22/17 14:00 11/22/17 14:00 11/22/17 14:00 11/22/17 14:00 Microbiology 11/17/17 18:28 Blood Panel (PCR) - Final Blood Milka Albicans Laboratory Results 11/22/17 06:20 11/22/17 14:20 11/21/17 11/22/17 11/23/17 05:59 05:59 05:59 Intake Total 3673.6 3117 Output Total 3077 625 1475 Balance 598.6 -625 1642 Gen: cachetic, breathing easy HEENT: no oral thrush, NGT CV: tachy irr Chest course bs B Abd: soft NT, slight distension +BS RUE swelling, stable anasarca LUE PICC c/d/i Tubbs skin : pallor, no rash - Time Spent With Patient Time Spent with Patient: greater than 35 minutes Time Spent with Patient: Greater than 35 minutes spent on this patients care, greater than 50% of time spent counseling, educating, and coordinating care regarding the above mentioned plan. ICD10 Worksheet Patient Problems: Problems Problem Status Onset Pneumonia Acute Sepsis Acute
[2017-11-22] MEDS ORDERED: AMIODARONE A.FIB-6HR INFSN (ORDER 2/3) PREMIX IV ONE (18:00)
--- NOTE | 2017-11-22 19:27 | HOSPPROG ---
Hospitalist Progress Note Assessment/Plan: * Septic shock - off pressors -source - aspiration pneumonia vs. UTI * Acute respiratory failure s/p extubation * Cardiac arrest - brief CPR/Epi * Afib -amiodarone -s/p failed cardioversion * Metabolic encephalopathy - some hallucinations * Ecoli bacteremia -Unasyn * Milka bacteremia -micafungin -eventual ophtho consult rule out endophthalmitis * PICC line related DVT -no anticoagulation due to severe thrombocytopenia -resume Xarelto when platelets better -PICC changed to other side due to fungemia * Kidney stone with bladder hematoma s/p evacuation Dr. 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 -concerning for possible seeding of hardware with bacteremia * Thrombocytopenia * Chronic steroids - s/p stress dose * Dysphagia - NPO - tube feeds * Volume overload -IV lasix * Hypernatremia -increase H2O down NGT -got D5W today - will DC due to rapid correction - recheck midnight * Enterovirus - isolation Subjective: Confused Objective: Vital Signs Temp Pulse Resp BP Pulse Ox 36.6 C 126 H 18 137/68 H 94 11/22/17 18:00 11/22/17 18:00 11/22/17 18:00 11/22/17 18:00 11/22/17 18:00 Microbiology 11/17/17 18:28 Blood Panel (PCR) - Final Blood Milka Albicans Laboratory Results 11/22/17 06:20 11/22/17 18:07 11/21/17 11/22/17 11/23/17 05:59 05:59 05:59 Intake Total 3673.6 4634 Output Total 3075 625 2825 Balance 598.6 -625 1809 PT 24.4 SEC (12.0-15.0) H D 11/16/17 04:00 INR 2.19 (0.83-1.16) H 11/16/17 04:00 d/w Dr. Mtz - ICU rounds regarding Na plan tele reviewed - rapid afib - Physical Exam Constitutional: no apparent distress, appears nourished, not in pain Cardiovascular: irregularly irregular, tachycardia, edema, No systolic murmur Respiratory: no respiratory distress, no rales or rhonchi, clear to auscultation Gastrointestinal: normoactive bowel sounds, soft, non-tender abdomen, no palpable masses Skin: no rashes or abrasions, no fluctuance, no induration Neurologic: No AAOx3 Psychiatric: encephalopathic, poor insight, poor judgement, poor memory, No interacting appropriately ICD10 Worksheet Patient Problems: Problems Problem Status Onset Pneumonia Acute Sepsis Acute
[2017-11-22] MEDS: MELATONIN 3 MG TAB PO SCH (20:14)
[2017-11-23] MEDS: AMPICILLIN/SULBACTAM 3 GM in NS 100 ML IV SCH ×4 (00:34→18:06)
[2017-11-23] MEDS: INSULIN REGULAR HUMAN 100 UNIT/ML UNIT SC SCH ×4 (00:36→18:10)
[2017-11-23] MEDS: HYDROmorphONE/DILAUDID 1 MG/ML INJ IVP PRN ×2 (00:51→06:10)
[2017-11-23] MEDS: oxyCODONE IR 5 MG TAB PO PRN ×2 (02:44→21:22)
[2017-11-23 06:20] LABS: PLATELET COUNT 68 10^3/uL (150-400)
[2017-11-23 06:28] LABS: INR 1.33 (0.83-1.16); PROTIME(PATIENT) 16.7 SEC (12.0-15.0)
[2017-11-23] MEDS ORDERED: MAGNESIUM SULF 1 GM/DEXTROSE 100 ML IV ONE (07:33)
[2017-11-23] MEDS ORDERED: D5W 1,000 ML IV SCH (09:00)
[2017-11-23] MEDS: FUROSEMIDE 20 MG/2 ML VIAL IVP SCH (09:46)
[2017-11-23] MEDS: MICAFUNGIN NA 100 MG in NS 100 ML IV SCH (09:51)
[2017-11-23] MEDS: ACYCLOVIR 400 MG TAB PO SCH ×2 (09:51→21:22)
[2017-11-23] MEDS: ACETAMINOPHEN 650 MG/20.3 ML UDCUP TUBE PRN (09:52)
[2017-11-23] MEDS ORDERED: FUROSEMIDE 40 MG/4 ML VIAL IVP ONE (10:15)
--- NOTE | 2017-11-23 10:26 | PCMIDPN ---
Assessment/Plan: #Sepsis : off pressors, extubated #Ecoli bacteremia --plan 10-14 days of therapy, day #8 today # Aspiration PNA, extubated, O2 requirement slightly up --treatment will be covered w duration of bacteremia # Candidemia:too early to be PICC line infection, suspect other source such as GI or urinary. PICC line removed. --blood cx collected this AM to demonstrate clearance --continue micafungin --susceptibilities are ordered # Low grade fever, worsening Leukocytosis: known RUE clot, consider C diff, also will discuss possibility of evaluating pleural fluid on the left --send cdiff # Thrombocytopenia: improving, multifactorial # Enterovirus: continue resp precautions Abx: #02/14 Unasyn 3gm IV q6h, #4 micafungin 100mg IV daily #3 acyclovir 400mg PO BID ppx s/p 3 days ertapenem 1gm IV daily S/p 2 days Ceftriaxone micro 11/15 blood cx e coli 11/15 Ucx neg 11/17 blood cx (1/2) milka albicans 11/21 cath tip: NGTD 11/23 blood cx (2)pending Subjective: 2-3 loose stools per shift still w afib despite multiple interventions Objective: Vital Signs Temp Pulse Resp BP Pulse Ox 38.2 C 123 H 16 144/70 H 94 11/23/17 10:00 11/23/17 10:00 11/23/17 10:00 11/23/17 10:00 11/23/17 10:00 Microbiology 11/17/17 18:28 Blood Panel (PCR) - Final Blood Milka Albicans 11/17/17 18:15 Blood Culture - Final Blood Laboratory Results 11/23/17 06:00 11/23/17 06:00 11/22/17 11/23/17 11/24/17 05:59 05:59 05:59 Intake Total 6802 Output Total 625 3825 Balance -625 2977 - Physical Exam General Appearance: cachetic, other (Responds to questions with shaking head yes or no) EENT: pale conjunctiva, NG Tube, dry mucous membranes Respiratory: accessory muscle use, crackles, coarse breath sounds, No wheezing Cardiac/Chest: tachycardia, irregularly irregular Extremities: pedal edema, swelling (Right upper extremity, stable), other ( Lateral left mid leg incision C/D/I, osmel still in place) Abdomen: non-tender, soft, distended (Mild), other (Suspect underlying ascites) Male Genitalia: skinner, scrotal edema Skin: pallor, No rash - Line/s LUE PICC Lines: No drainage, No erythema - Time Spent With Patient Time Spent with Patient: greater than 35 minutes (course of illness reviewed with family and care coordinated w Dr. Mtz and Dr. Ray.) Time Spent with Patient: Greater than 35 minutes spent on this patients care, greater than 50% of time spent counseling, educating, and coordinating care regarding the above mentioned plan. ICD10 Worksheet Patient Problems: Problems Problem Status Onset Pneumonia Acute Sepsis Acute
--- NOTE | 2017-11-23 10:29 | POSTANESTH ---
Post Anesthetic Evaluation Cardiovascular Status: Normal, Stable Level of Consciousness/Mental Status: Can Participate in Eval Pain Control: Adequate, Prn Tx Ordered Nausea/Vomiting Control: Adequate, Prn Tx Ordered Complications Possibly Related to Anesthesia: None Noted (Still in ICU , extubated. Intermittent afib)
[2017-11-23] MEDS ORDERED: METOPROLOL TARTRATE 5 MG/5 ML INJ ONE (12:38)
[2017-11-23] MEDS ORDERED: POTASSIUM Cl (KCl) 50 ML IV ONE (12:54)
[2017-11-23] MEDS ORDERED: POTASSIUM CL 20 MEQ/15 ML UDCUP TUBE ONE (13:00)
[2017-11-23] MEDS: METOPROLOL TARTRATE 5 MG/5 ML INJ IVP PRN (13:21)
--- NOTE | 2017-11-23 13:28 | PDINTPN ---
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 This was resected by Dr. Amaral in early November. He was admitted to [facility] 11/15/17 with septic shock and E. Coli bacteremia requiring pressors. He subsequently developed anuria from a stojne and hematuria (on Xarelto) so was taken to the OR for removal. This was complicated by cardiac arrest and brief CPR, followed by rapid afib which has been refractory to CV and multiple medications until when he converted to NSR. He was intubated in the OR, but extubated 11/20 without difficulty. Initial blood cultures 11/15 grew sensitive E. Coli, but fu cx 11/17 grew Milka. * Septic shock from E. Coli bacteremia and presumed urinary source. No longer on pressors with hemodynamic stability and covered with Unasyn. Aspiration PNA has also been suggested as a comorbidity * Bacteremia/fungemia- Milka on second culture. PICC line changed and started Micafungin. repeat cx pending * Afib- resumed RVR and was treated with additional amiodarone bolus on 11/22 and digoxin, but remains at 130-140. Awaiting cardiology input. * Acute respiratory failure related to all of the above and possible contribution from enterovirus. Increasing OI2 needs and rhonchi likely related to oongoing afib. Lasix increased today to 40 bid. * Anemia/thrombocytopenia- presumed related to Invanz and likely susceptible BM. Cross matching blood has been challenging, but little transfusion required. Improving. No transfusion required. * Hypernatremia- improved 11/23 with addition of D5W * DVT of RUE associated with PICC. Anticoag held 2/2 TCP; may initiate depending on recovery of platelets. * TAVON- resolved * Cardiac arrest- reportedly very brief and I dont anticipate neurologic sequelae. Continue to observe. * * Subjective: continued problems with rapid afib; increasing o2 requirement Objective: Vital Signs Temp Pulse Resp BP Pulse Ox 36.5 C 143 H 19 122/71 H 94 11/23/17 12:00 11/23/17 12:11/23/17 12:11/23/17 12:00 11/23/17 12:00 Microbiology 11/17/17 18:28 Blood Panel (PCR) - Final Blood Milka Albicans 11/17/17 18:15 Blood Culture - Final Blood Laboratory Results 11/23/17 06:00 11/23/17 11:50 11/22/17 11/23/17 11/24/17 05:59 05:59 05:59 Intake Total 6802 Output Total 625 3825 Balance -625 2977 PT 16.7 SEC (12.0-15.0) H 11/23/17 06:00 INR 1.33 (0.83-1.16) H 11/23/17 06:00 Physical Exam - Physical Exam General Appearance: obtunded, thin EENT: PERRL/EOMI Neck: supple Respiratory: crackles, rhonchi, No respiratory distress, No accessory muscle use Cardiac/Chest: edema, tachycardia, irregularly irregular Abdomen: non-tender, soft, No distended Skin: normal color, warm/dry, No cyanosis Lymphatic: no adenopathy Extremities: pedal edema Neuro/Psych: cognition abnormalities ICD10 Worksheet Patient Problems: Problems Problem Status Onset Pneumonia Acute Sepsis Acute
[2017-11-23] MEDS: FUROSEMIDE 40 MG/4 ML VIAL IVP SCH ×2 (13:47→21:22)
--- NOTE | 2017-11-23 14:28 | ASMTCMCOM ---
CM Note CM Note Notes: Patient remains critically ill. Patient continuing to have issues with AFIB. Cardiology has been contacted. CM will follow. Date Signed: 11/23/2017 02:27 PM Electronically Signed By:Maty Patiño LCSW
--- NOTE | 2017-11-23 15:21 | SOAPPROG ---
SOAP Progress Note Assessment/Plan: Assessment: 1.) Septic shock from E. coli urosepsis 2.) Resp Failure 3.) A fib with Cardiomyopathy 4.) Multiple Myeloma on Daratumumab (Darzalex) , non-secretory, IgA subtype causing marrow related myelosuppression. No active TX in the immediate future. Darzalex interferes with standard T+Cross match process, requiring molecular T +C procedure. 5.) Candidemia 6.) Aspiration pneumonia 7.) Elevated LFTs 8.) DVT R arm 9.) T-penia, complicating atrial fibrillation and DVT medical management. 10.) COPD/ hypoxemia Plan: At this point, will follow ICU course. Agree to withhold anticoagulation given degree of Thrombocytopenia. No active Myeloma tx any time in the near future. 11/23/17 15:21 Subjective: Pt without new sx. as per his who is at the bedside,continuously Objective: Pt in NAD, awakens to verbal stimuli Face mask oxygen in place Neck - no LN enlargement Chest- upper airway with scattered coarse rhonchi, adequate air movement CVS- RSR, no S3, S4 Abd- soft, NT, no mass or HSM EXT- less edema, strong peripheral pulses. Labs: PLT up slightly to 68 Hgb 9.2, improved. Vital Signs Temp Pulse Resp BP Pulse Ox 36.5 C 81 24 H 136/77 H 5 L 11/23/17 12:00 11/23/17 14:00 11/23/17 14:00 11/23/17 14:00 11/23/17 14:00 Microbiology 11/17/17 18:28 Blood Panel (PCR) - Final Blood Milka Albicans 11/17/17 18:15 Blood Culture - Final Blood Laboratory Results 11/23/17 06:00 11/23/17 11:50 11/22/17 11/23/17 11/24/17 05:59 05:59 05:59 Intake Total 6802 Output Total 168 3037 Balance -851 5764 PT 16.7 SEC (12.0-15.0) H 11/23/17 06:00 INR 1.33 (0.83-1.16) H 11/23/17 06:00 ICD10 Worksheet Patient Problems: Problems Problem Status Onset Pneumonia Acute Sepsis Acute
--- NOTE | 2017-11-23 15:38 | SOAPPROG ---
SOHUGO Progress Note Assessment/Plan: Assessment: Problem List (imported from Dr. Krishnan 1. Atrial fibrillation with rapid ventricular response 2. Cardiomyopathy with LVEF of 42% on echocardiogram performed 11/15/2017 3. Sepsis with E coli bacteremia 4. Acute blood-loss anemia 5. Acute respiratory failure currently intubated 6. Multiple myeloma 7. Thrombocytopenia 8. Right upper extremity DVT at site of PICC line as well as cephalic vein. 9. Elevated LFT's 11/22/17 09:18 Impression: Recurrent atrial fibrillation with rapid ventricular response on oral amiodarone. This is in the setting of a mild cardiomyopathy ejection fraction 42% based on echo from the 15 of November. He is relatively asymptomatic resting flat. He has normal blood pressure. Will plan for repeat loading with IV amiodarone for control of rate and rhythm. Consideration of digoxin. At this point no indication for cardioversion. Replete electrolytes including potassium magnesium. 11/23/17 15:38 Impression: Atrial fibrillation with conversion to sinus rhythm with 5 mg of metoprolol. Continue amiodarone load till tomorrow. P.r.n. IV beta-dimitry. Objective: Vital Signs Temp Pulse Resp BP Pulse Ox 36.5 C 81 24 H 136/77 H 5 L 11/23/17 12:00 11/23/17 14:00 11/23/17 14:00 11/23/17 14:00 11/23/17 14:00 Microbiology 11/17/17 18:28 Blood Panel (PCR) - Final Blood Milka Albicans 11/17/17 18:15 Blood Culture - Final Blood Laboratory Results 11/23/17 06:00 11/23/17 11:50 11/22/17 11/23/17 11/24/17 05:59 05:59 05:59 Intake Total 6802 Output Total 167 2018 Balance -625 2977 PT 16.7 SEC (12.0-15.0) H 11/23/17 06:00 INR 1.33 (0.83-1.16) H 11/23/17 06:00 Physical Exam - Physical Exam General Appearance: cachetic Respiratory: rales Cardiac/Chest: regular rate, rhythm ICD10 Worksheet Patient Problems: Problems Problem Status Onset Pneumonia Acute Sepsis Acute
[2017-11-23] MEDS ORDERED: AMIODARONE A.FIB-18HR INFSN (ORDER 3/3) IV ONE ×2 (15:45)
[2017-11-23] MEDS ORDERED: METOPROLOL TARTRATE 5 MG/5 ML INJ IV ONE (18:00)
[2017-11-23] MEDS ORDERED: AMIODARONE A.FIB-6HR INFSN (ORDER 2/3) PREMIX IV ONE (18:00)
[2017-11-23] MEDS ORDERED: AMIODARONE A.FIB-LOAD DOSE(ORDER 1/3) PREMIX IV ONE (18:00)
[2017-11-23] MEDS: METOPROLOL TARTRATE 5 MG/5 ML INJ IV PRN ×2 (18:20→18:39)
--- NOTE | 2017-11-23 18:30 | HOSPPROG ---
Hospitalist Progress Note Assessment/Plan: * Septic shock - off pressors -source - aspiration pneumonia vs. UTI * Acute respiratory failure s/p extubation * Cardiac arrest - brief CPR/Epi * Afib -amiodarone -s/p failed cardioversion -IV metoprolol prn * Metabolic encephalopathy - worse -head CT negative * Ecoli bacteremia -Unasyn * Milka bacteremia -micafungin -eventual ophtho consult rule out endophthalmitis * PICC line related DVT -no anticoagulation due to severe thrombocytopenia -resume Xarelto when platelets better -PICC changed to other side due to fungemia * Kidney stone with bladder hematoma s/p evacuation Dr. 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 -concerning for possible seeding of hardware with bacteremia * Thrombocytopenia * Chronic steroids - s/p stress dose * Dysphagia - NPO - tube feeds * Volume overload -IV lasix * Hypernatremia -increase H2O down NGT -D5W x 1 liter slowly - follow serial Na to ensure slow correction * Enterovirus - isolation Subjective: Very confused, minimally responsive Objective: Vital Signs Temp Pulse Resp BP Pulse Ox 36.5 C 119 H 22 H 120/65 96 11/23/17 12:00 11/23/17 16:00 11/23/17 16:00 11/23/17 18:20 11/23/17 16:00 Microbiology 11/17/17 18:28 Blood Panel (PCR) - Final Blood Milka Albicans 11/17/17 18:15 Blood Culture - Final Blood Laboratory Results 11/23/17 06:00 11/23/17 11:50 11/22/17 11/23/17 11/24/17 05:59 05:59 05:59 Intake Total 6802 Output Total 625 3825 2600 Balance -625 2977 -2600 PT 16.7 SEC (12.0-15.0) H 11/23/17 06:00 INR 1.33 (0.83-1.16) H 11/23/17 06:00 d/w krissy Lou ICU rounds - worse head CT - negative tele - rapid afib - Physical Exam Constitutional: no apparent distress, appears nourished, not in pain Cardiovascular: regular rate and rhythym, no murmur, rub, or gallop Respiratory: no respiratory distress, inspiratory crackles, respiratory distress , rhonchi Gastrointestinal: normoactive bowel sounds, soft, non-tender abdomen, no palpable masses Skin: no rashes or abrasions, no fluctuance, no induration Neurologic: No AAOx3 Psychiatric: encephalopathic, poor insight, poor judgement, poor memory, other ( almost completely unresponsive - much worse than 2 days ago), No interacting appropriately ICD10 Worksheet Patient Problems: Problems Problem Status Onset Pneumonia Acute Sepsis Acute
[2017-11-23] MEDS: MELATONIN 3 MG TAB PO SCH (21:22)
[2017-11-23] MEDS: POTASSIUM Cl (KCl) 10 MEQ in NS 50 ML IV SCH ×3 (22:04→23:20)
[2017-11-24] MEDS ORDERED: AMIODARONE A.FIB-18HR INFSN (ORDER 3/3) IV ONE
[2017-11-24] MEDS: INSULIN REGULAR HUMAN 100 UNIT/ML UNIT SC SCH ×4 (00:42→18:11)
[2017-11-24] MEDS: AMPICILLIN/SULBACTAM 3 GM in NS 100 ML IV SCH ×4 (00:44→18:29)
[2017-11-24] MEDS ORDERED: POTASSIUM Cl (KCl) 50 ML IV ONE ×2 (02:05→07:29)
[2017-11-24] MEDS: FUROSEMIDE 40 MG/4 ML VIAL IVP SCH ×3 (06:03→21:38)
[2017-11-24 06:30] LABS: PLATELET COUNT 71 10^3/uL (150-400)
[2017-11-24] MEDS ORDERED: MAGNESIUM SULF 1 GM/DEXTROSE 100 ML IV ONE (07:29)
[2017-11-24] MEDS: METOPROLOL TARTRATE 5 MG/5 ML INJ IVP PRN ×2 (07:32→15:47)
[2017-11-24] MEDS ORDERED: PROTOCOL POTASSIUM 1 DOSE MISC PRN (07:37)
[2017-11-24] MEDS ORDERED: POTASSIUM CL 20 MEQ/15 ML UDCUP TUBE ONE (07:45)
[2017-11-24] MEDS: oxyCODONE IR 5 MG TAB PO PRN (08:36)
[2017-11-24] MEDS: ACYCLOVIR 400 MG TAB PO SCH (08:36)
[2017-11-24] MEDS: MICAFUNGIN NA 100 MG in NS 100 ML IV SCH (09:49)
--- NOTE | 2017-11-24 11:10 | WOCRNPDOC ---
[facility] Advanced Assessment Note - Skin Integrity Problem, Advanced Assess Left Posterior Calf Dressing Type: Allevyn Life Dressing Description: Intact Exudate Amount: Scant Exudate Color: Reddish/Yellow Exudate Characteristic(s): Serosanguinous Integumentary Issue Intervention: Visualized Under Dressing Josee Wound Tissue: Intact Josee Wound Swelling: None Wound Bed Color: Black, Red Wound Bed Constitution: Red/Alva - Non Granular Tissue (20%), Mixed Loose & Adhered Slough/Eschar (80%) Wound Edges: Epithelizing Site Odor: None Site Measurement - Head-to-Toe Length X Width X Depth (cm): 1.5cmx0.8cmx eschar Skin Integrity Problem Comment: Discrete wound on the posterior aspect of patient's L calf, etiology unknown. Per patient's , he has had this wound since "early November," and she thought it could be related to the brace he wore previously to prevent foot drop, which was made of hard plastic. Could be a pressure injury from this, but as patient no longer has device and use is anecdotal, unable to say for certain. Currently no pressure over this site. There is red, non-granulating tissue along the wound margins, adhered eschar medially. Periwound skin is intact w/ no erythema or swelling. Will have nursing initiate a dressing to help soften and autolytically debride the necrotic tissue. Wound care will follow up next 12/01. banquet captain Zach present and assisting. Posterior Scrotum Incont Assoc Dermatitis Dressing Type: Open to Air (Calazime paste noted on skin) Exudate Amount: None Integumentary Issue Intervention: Barrier Cream Applied (MAD cream ordered from pharmacy; nursing to apply) Skin Integrity Problem Comment: Worsening redness under scrotum and in josee anal skin described by nursing. Red, scattered satellite lesions noted, indicating fungal involvement. Skin is raw and denuded throughout r/t ongoing moisture. Site previously being treated w/ Calazime paste; changed order today to MAD (moisture-associated dermatitis) cream to confer anti-fungal and pain- relieving properties, as well as moisture barrier. Perianal Incont Assoc Dermatitis Dressing Type: Open to Air (thin layer of Calazime paste evident) Exudate Amount: None Integumentary Issue Intervention: Barrier Cream Applied (MAD cream ordered from pharmacy; nursing to apply) Josee Wound Tissue: Blanching, Erythema Josee Wound Swelling: None Skin Integrity Problem Comment: Worsening redness in josee-anal skin described by nursing. Red, scattered satellite lesions noted, indicating fungal involvement. Skin is raw and denuded throughout r/t ongoing moisture. Blanching erythema noted over coccyx. Patient has a Mepilex sacral dressing proximal to this area; advised removing if dressing becoming soiled >2x/day. He is on a pressure-relieving support surface, and is being turned side to side q2 to off- load area and prevent pressure injury. Josee-anal skin previously being treated w / Calazime paste; changed order today to MAD (moisture-associated dermatitis) cream to confer anti-fungal and pain-relieving properties, as well as moisture barrier.
[2017-11-24] MEDS ORDERED: oxyCODONE IR 5 MG TAB TUBE PRN (11:30)
[2017-11-24] MEDS: LIDO/ZINC OX/CLOTRIMAZOLE (MAD) 116 GM CREAM TP SCH ×3 (11:50→22:34)
[2017-11-24] MEDS: ENOXAPARIN 40 MG/0.4 ML SYR SC SCH (11:51)
--- NOTE | 2017-11-24 12:00 | PCMIDPN ---
Assessment/Plan: Assessment/Plan: * Sepsis due to E coli bacteremia of urinary etiology status post operative bladder irrigation and removal of bladder stone: Continue antibiotic therapy with anticipated 14 day course of therapy (day # 03/17). * Candidemia: 1/2 cultures from 11/17/17 with growth of Milka albicans. Repeat blood cultures do not show growth of yeast. Continue micafungin with anticipated 2 week course of therapy. PICC line has now been removed with new PICC line placed. Susceptibility profile pending. * Elevated liver enzymes: May be related to previous hypotension. Repeat assessment will be performed. * Probable aspiration pneumonia: Covered by Unasyn. * Respiratory PCR positive for entero/rhino: Doubt contributing to current presentation with pulmonary infiltrate being less typical for viral etiology. * Status post recent left lower extremity orthopedic fixation: No signs or symptoms of infection at orthopedic fixation site. * Fever/leukocytosis: No clear etiology. C difficile toxin is negative. Will proceed with CT scan of chest, abdomen and pelvis to further pneumonia/effusion and to assess for any intra-abdominal pathology. 11/24/17 11:56 11/24/17 11:59 Subjective: Patient mildly confused this a.m.. Objective: Vital Signs Temp Pulse Resp BP Pulse Ox 36.5 C 85 23 H 120/49 L 95 11/24/17 10:00 11/24/17 10:00 11/24/17 10:00 11/24/17 10:00 11/24/17 10:00 Microbiology 11/17/17 18:28 Blood Panel (PCR) - Final Blood Milka Albicans Laboratory Results 11/24/17 06:10 11/24/17 06:10 11/23/17 11/24/17 11/25/17 05:59 05:59 05:59 Intake Total 6802 2946 Output Total 3825 5400 Balance 2977 -2454 Unasyn # 5, antibiotics # 03/17 Micafungin # 4 T-max 38.2 degrees Blood cultures 11/23/2017 no growth to date Cath tip no growth Chest x-ray with persistent left lower lobe infiltrate and more prominent upper lobe infiltrate - Physical Exam General Appearance: no apparent distress, non-toxic, other (Mildly agitated) EENT: No scleral icterus Respiratory: lungs clear (Anterolaterally), respiratory distress (Mild increased respiratory effort) Cardiac/Chest: tachycardia Extremities: other (Left lower extremity surgical site without erythema or drainage) Abdomen: tender (Mild epigastric tenderness), No distended Skin: No rash ICD10 Worksheet Patient Problems: Problems Problem Status Onset Pneumonia Acute Sepsis Acute
[2017-11-24] MEDS: METOPROLOL TARTRATE 25 MG TAB PO SCH ×2 (13:22→20:29)
--- NOTE | 2017-11-24 14:56 | HOSPPROG ---
Hospitalist Progress Note Assessment/Plan: 72 yo M with hx of MM presenting with septic shock * Septic shock - off pressors -source - ecoli bacteremia of urinary source s/p bladder instrumentation. Plan for 14 days abx of unasyn * candidemia: 1/2 cultures growing milka with repeat cxs not showing yeast, continue micafungin for plan of 2 weeks * Acute respiratory failure s/p extubation and stable on 6-7L oxymask * aspiration pna: covered by current abx * Cardiac arrest - brief CPR/Epi * Afib -amiodarone -s/p failed cardioversion -IV metoprolol prn * Metabolic encephalopathy - worse -head CT negative * Ecoli bacteremia -Unasyn * PICC line related DVT -started on ppx lmwh for now given low plts -PICC changed to other side due to fungemia * Kidney stone with bladder hematoma s/p evacuation Dr. 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 Old records reviewed and summarized as above. Care plan reviewed with Dr. Mtz and multidisciplinary team on rounds. Subjective: no acute overnight events, Objective: Vital Signs Temp Pulse Resp BP Pulse Ox 36.5 C 113 H 24 H 116/73 93 11/24/17 10:00 11/24/17 14:00 11/24/17 14:00 11/24/17 14:00 11/24/17 14:00 Microbiology 11/17/17 18:28 Blood Panel (PCR) - Final Blood Milka Albicans Laboratory Results 11/24/17 06:10 11/24/17 12:00 11/23/17 11/24/17 11/25/17 05:59 05:59 05:59 Intake Total 6802 2946 Output Total 3825 5400 Balance 2977 -2454 PT 16.7 SEC (12.0-15.0) H 11/23/17 06:00 INR 1.33 (0.83-1.16) H 11/23/17 06:00 awake somnolent anicteric sclera injected op clear rrr tachy cta b soft nt nd ble edema warm dry well perfused oriented ICD10 Worksheet Patient Problems: Problems Problem Status Onset Pneumonia Acute Sepsis Acute
--- NOTE | 2017-11-24 15:54 | PDINTPN ---
Property Management Specialist Progress Note Assessment/Plan: Assessment/plan: 72 M with known multiple myeloma diagnosed 2012 with 30% bone marrow involvement treated with chemotherapy and focused XRT, but declined HSCT. 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 This was resected by Dr. Amaral in early November. He was admitted to [facility] 11/15/17 with septic shock and E. Coli bacteremia requiring pressors. He subsequently developed anuria from a stojne and hematuria (on Xarelto) so was taken to the OR for removal. This was complicated by cardiac arrest and brief CPR, followed by rapid afib which has been refractory to CV and multiple medications until when he converted to NSR. He was intubated in the OR, but extubated 11/20 without difficulty. Initial blood cultures 11/15 grew sensitive E. Coli, but fu cx 11/17 grew Milka. * Septic shock from E. Coli bacteremia and presumed urinary source. No longer on pressors with hemodynamic stability and covered with Unasyn. Aspiration PNA has also been suggested as a comorbidity. Repeat culture NTD * Bacteremia/fungemia- Milka on second culture. PICC line changed and started Micafungin. repeat cx NTD * Afib- resumed RVR and was treated with additional amiodarone bolus on 11/22 and digoxin, but remains at 130-140. started 25 metoprolol PT today * Acute respiratory failure related to all of the above and possible contribution from enterovirus. Increasing OI2 needs and rhonchi likely related to oongoing afib. Lasix increased today to 40 bid on 11/23 and will continue same for now. CXR looks a bit better and UE edema improved * Anemia/thrombocytopenia- presumed related to Invanz and likely susceptible BM. Cross matching blood has been challenging, but little transfusion required. Improving. No transfusion required. OK to start prophylactic LMWH * Hypernatremia- improved 11/23 with addition of D5W, but worse when dc'd. Resume today and observe * DVT of RUE associated with PICC. Anticoag held 2/2 TCP; as above * TAVON- resolved * Cardiac arrest- reportedly very brief and I dont anticipate neurologic sequelae. Continue to observe. * * 11/24/17 15:51 Subjective: Remains in and out of rapid afib, though responded to metoprolol. Objective: Vital Signs Temp Pulse Resp BP Pulse Ox 36.5 C 134 H 24 H 135/67 H 93 11/24/17 10:00 11/24/17 15:47 11/24/17 14:00 11/24/17 15:47 11/24/17 14:00 Microbiology 11/17/17 18:28 Blood Panel (PCR) - Final Blood Milka Albicans Laboratory Results 11/24/17 06:10 11/24/17 12:00 11/23/17 11/24/17 11/25/17 05:59 05:59 05:59 Intake Total 6802 2946 Output Total 3825 5400 Balance 2977 -2454 PT 16.7 SEC (12.0-15.0) H 11/23/17 06:00 INR 1.33 (0.83-1.16) H 11/23/17 06:00 Physical Exam - Physical Exam General Appearance: alert, other (somnolent) EENT: PERRL/EOMI Neck: supple Respiratory: lungs clear, normal breath sounds, decreased breath sounds, No respiratory distress, No accessory muscle use Cardiac/Chest: edema, tachycardia, irregularly irregular Abdomen: non-tender, soft, No distended Skin: normal color, warm/dry, No cyanosis Lymphatic: no adenopathy Extremities: pedal edema Neuro/Psych: cognition abnormalities ICD10 Worksheet Patient Problems: Problems Problem Status Onset Pneumonia Acute Sepsis Acute
[2017-11-24] MEDS: D5W 1,000 ML IV SCH (18:29)
[2017-11-24] MEDS ORDERED: POTASSIUM CL 10 MEQ TAB PO ONE (19:11)
[2017-11-24] MEDS ORDERED: POTASSIUM CL 20 MEQ/15 ML UDCUP PO ONE (19:15)
[2017-11-24] MEDS: ACETAMINOPHEN 650 MG/20.3 ML UDCUP TUBE PRN (20:29)
[2017-11-24] MEDS: ACYCLOVIR 400 MG TAB TUBE SCH (20:29)
[2017-11-24] MEDS: MELATONIN 3 MG TAB TUBE SCH (20:29)
[2017-11-24] MEDS: HYDROmorphONE/DILAUDID 2 MG/ML INJ IVP PRN (22:14)
[2017-11-25] MEDS: AMPICILLIN/SULBACTAM 3 GM in NS 100 ML IV SCH ×4 (00:19→17:25)
[2017-11-25] MEDS: D5W 1,000 ML IV SCH ×2 (00:19→16:12)
[2017-11-25] MEDS: INSULIN REGULAR HUMAN 100 UNIT/ML UNIT SC SCH ×4 (00:29→17:43)
[2017-11-25] MEDS: FUROSEMIDE 40 MG/4 ML VIAL IVP SCH ×3 (06:04→20:27)
[2017-11-25 08:36] LABS: PLATELET COUNT 60 10^3/uL (150-400)
[2017-11-25] MEDS: METOPROLOL TARTRATE 25 MG TAB PO SCH ×2 (09:06→20:27)
[2017-11-25] MEDS: ACYCLOVIR 400 MG TAB TUBE SCH ×2 (09:06→20:27)
[2017-11-25] MEDS: LORazepam 2 MG/ML INJ IVP PRN (09:06)
[2017-11-25] MEDS: ENOXAPARIN 40 MG/0.4 ML SYR SC SCH (09:06)
[2017-11-25] MEDS: METOPROLOL TARTRATE 5 MG/5 ML INJ IVP PRN ×2 (09:09→17:25)
[2017-11-25] MEDS: LIDO/ZINC OX/CLOTRIMAZOLE (MAD) 116 GM CREAM TP SCH ×2 (09:22→20:15)
[2017-11-25] MEDS: MICAFUNGIN NA 100 MG in NS 100 ML IV SCH (09:25)
[2017-11-25] MEDS ORDERED: POTASSIUM CL 20 MEQ/15 ML UDCUP TUBE ONE (09:30)
--- NOTE | 2017-11-25 09:58 | SOAPPROG ---
SOAP Progress Note Assessment/Plan: Assessment: Problem List (imported from Dr. Krishnan 1. Atrial fibrillation with rapid ventricular response 2. Cardiomyopathy with LVEF of 42% on echocardiogram performed 11/15/2017 3. Sepsis with E coli bacteremia 4. Acute blood-loss anemia 5. Acute respiratory failure currently intubated 6. Multiple myeloma 7. Thrombocytopenia 8. Right upper extremity DVT at site of PICC line as well as cephalic vein. 9. Elevated LFT's 11/25/17 09:55 Impression: Paroxysmal atrial fibrillation with modestly controlled ventricular rate on oral metoprolol. He has completed amiodarone load. Will continue 200 mg daily of oral amiodarone. Replete K. 11/22/17 09:18 Impression: Recurrent atrial fibrillation with rapid ventricular response on oral amiodarone. This is in the setting of a mild cardiomyopathy ejection fraction 42% based on echo from the 15 of November. He is relatively asymptomatic resting flat. He has normal blood pressure. Will plan for repeat loading with IV amiodarone for control of rate and rhythm. Consideration of digoxin. At this point no indication for cardioversion. Replete electrolytes including potassium magnesium. 11/23/17 15:38 Impression: Atrial fibrillation with conversion to sinus rhythm with 5 mg of metoprolol. Continue amiodarone load till tomorrow. P.r.n. IV beta-dimitry. Objective: Medications Generic Name Dose Route Start Last Admin Trade Name Freq PRN Reason Stop Dose Admin Enoxaparin Sodium 40 mg 11/24/17 11:00 11/25/17 09:06 Lovenox SC 05/23/18 10:59 40 mg DAILY CHRISTINA Furosemide 40 mg 11/23/17 14:00 11/25/17 06:04 Lasix Injection IVP 05/22/18 13:59 40 mg Q8HRS CHRISTINA Metoprolol Tartrate 5 mg 11/23/17 12:46 11/25/17 09:09 Lopressor Injection IVP 05/22/18 17:59 5 mg Q6HRS PRN HR Sustained Greater Than 120 Metoprolol Tartrate 25 mg 11/24/17 12:30 11/25/17 09:06 Lopressor PO 05/23/18 12:29 25 mg BID CHRISTIAN Vital Signs Temp Pulse Resp BP Pulse Ox 36.9 C 125 H 20 115/59 L 99 11/25/17 06:00 11/25/17 09:09 11/25/17 06:00 11/25/17 09:09 11/25/17 06:00 Laboratory Results 11/25/17 08:28 11/25/17 08:28 11/24/17 11/25/17 11/26/17 05:59 05:59 05:59 Intake Total 2946 3642 Output Total 5400 3375 1000 Balance -2454 267 -1000 PT 16.7 SEC (12.0-15.0) H 11/23/17 06:00 INR 1.33 (0.83-1.16) H 11/23/17 06:00 Laboratory Tests 11/25/17 11/25/17 08:28 08:28 Hgb 7.8 L Potassium 2.9 L Physical Exam - Physical Exam General Appearance: cachetic Cardiac/Chest: irregularly irregular ICD10 Worksheet Patient Problems: Problems Problem Status Onset Atrial fibrillation Acute Pneumonia Acute Sepsis Acute
--- NOTE | 2017-11-25 10:09 | PCMIDPN ---
Assessment/Plan: Assessment: septic shock secondary to e. coli bacteremia from what is felt to be a source. The isolate is gomez-sensitive. This is slowly resolving. Continuing Unasyn coverage encompasses this treatment. LLL infiltrate - persisting on CT scans. Also has atypical infiltrates in other areas of the lungs which may or may not be infectious. Overall his prognosis is quite guarded. Line related fungemia secondary to Milka albicans. Receiving micafungin for treatment. His clinical status is guarded at present. Underlying diseases continues to take its toll. Plan: 1) Continue IV Unasyn. 2) continue micafungin. 3) follow-up progress clinically. Subjective: Patient is appearing quite ill and weak in bed today. He just received a dose of Ativan for sedation. This may be causing somewhat of a paradoxical response. He continues to require a high amount of O2 for supplementation. Objective: Unasyn # 6 Micafungin # 5 Vital Signs Temp Pulse Resp BP Pulse Ox 36.9 C 125 H 20 115/59 L 99 11/25/17 06:00 11/25/17 09:09 11/25/17 06:00 11/25/17 09:09 11/25/17 06:00 Laboratory Results 11/25/17 08:28 11/25/17 08:28 11/24/17 11/25/17 11/26/17 05:59 05:59 05:59 Intake Total 2946 3642 Output Total 5400 3375 1000 Balance -2454 267 -1000 - Physical Exam General Appearance: WD/WN, apparent distress (Mild), thin, toxic (Mild), No alert Respiratory: lungs clear, respiratory distress (Mild), No normal breath sounds, No stridor, No wheezing Cardiac/Chest: regular rate, rhythm, tachycardia (Occasional tachycardia), irregularly irregular (When tachycardic) Skin: normal color, warm/dry, No rash ICD10 Worksheet Patient Problems: Problems Problem Status Onset Atrial fibrillation Acute Pneumonia Acute Sepsis Acute
[2017-11-25] MEDS: AMIODARONE HCL 200 MG TAB PO SCH (10:18)
--- NOTE | 2017-11-25 14:13 | SOAPPROG ---
SOAP Progress Note Assessment/Plan: Assessment: 1.) Septic shock from E. coli urosepsis 2.) Resp Failure 3.) A fib with Cardiomyopathy 4.) Multiple Myeloma on Daratumumab (Darzalex) , non-secretory, IgA subtype causing marrow related myelosuppression. No active TX in the immediate future. Darzalex interferes with standard T+Cross match process, requiring molecular T +C procedure. 5.) Candidemia 6.) Aspiration pneumonia 7.) Elevated LFTs 8.) DVT R arm 9.) T-penia, complicating atrial fibrillation and DVT medical management. 10.) COPD/ hypoxemia Plan: At this point, will follow ICU course. Agree to withhold anticoagulation given degree of Thrombocytopenia. No active Myeloma tx any time in the near future. 11/25/17 14:12 Subjective: Reports no new pain overnight Objective: just went into A fib with RVR. Other VSS in NAD Facemask oxygen in place, anicteric, No oral lesions. Neck - supple Chest- clear anteriorly CVS-afib with RVR ABD- soft, BS+ NT, no mass or HSM EXT- dependent edema (+) Labs as noted here: Hgb 7.8 PLT 60 Vital Signs Temp Pulse Resp BP Pulse Ox 37.4 C 140 H 27 H 121/65 H 93 11/25/17 11:02 11/25/17 14:00 11/25/17 14:00 11/25/17 14:00 11/25/17 14:00 Laboratory Results 11/25/17 08:28 11/25/17 08:28 11/24/17 11/25/17 11/26/17 05:59 05:59 05:59 Intake Total 3996 5800 Output Total 5058 9603 1999 Balance -2454 267 -2000 PT 16.7 SEC (12.0-15.0) H 11/23/17 06:00 INR 1.33 (0.83-1.16) H 11/23/17 06:00 ICD10 Worksheet Patient Problems: Problems Problem Status Onset Atrial fibrillation Acute Pneumonia Acute Sepsis Acute
--- NOTE | 2017-11-25 14:18 | HOSPPROG ---
Hospitalist Progress Note Assessment/Plan: 72 yo M with hx of MM presenting with septic shock * Septic shock - off pressors -source - ecoli bacteremia of urinary source s/p bladder instrumentation. Currently on unasyn * candidemia: 1/2 cultures growing aleksandra with repeat cxs not showing yeast, continue micafungin * Acute respiratory failure s/p extubation and o2 needs continue to decrease, now down to 3L * aspiration pna: covered by current abx * Cardiac arrest - brief CPR/Epi * Afib--continued on amiodarone and metoprolol * Metabolic encephalopathy - worse again today, speech difficult to understand , suspect largely due to ICU delirium -head CT negative * Ecoli bacteremia -Unasyn * PICC line related DVT -started on ppx lmwh for now given low plts -PICC changed to other side due to fungemia * Kidney stone with bladder hematoma s/p evacuation Dr. 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 Mtz and multidisciplinary team on rounds. > 40 min of critical care time spent in above Subjective: this am patient more confused, more difficult to understand speech Objective: Vital Signs Temp Pulse Resp BP Pulse Ox 37.4 C 140 H 27 H 121/65 H 93 11/25/17 11:02 11/25/17 14:00 11/25/17 14:00 11/25/17 14:00 11/25/17 14:00 Laboratory Results 11/25/17 08:28 11/25/17 08:28 11/24/17 11/25/17 11/26/17 05:59 05:59 05:59 Intake Total 7206 8522 Output Total 5450 7895 1999 Balance -2454 267 -2000 PT 16.7 SEC (12.0-15.0) H 11/23/17 06:00 INR 1.33 (0.83-1.16) H 11/23/17 06:00 awake somnolent anicteric sclera injected op clear rrr tachy cta b soft nt nd ble edema warm dry well perfused oriented - Time Spent With Patient Time Spent with Patient: greater than 35 minutes Time Spent with Patient: Greater than 35 minutes spent on this patients care, greater than 50% of time spent counseling, educating, and coordinating care regarding the above mentioned plan. ICD10 Worksheet Patient Problems: Problems Problem Status Onset Atrial fibrillation Acute Pneumonia Acute Sepsis Acute
--- NOTE | 2017-11-25 14:23 | ASMTCMCOM ---
CM Note CM Note Notes: Patient remains critically ill. Palliative care consult will be ordered. This is an informational with the family members only as the patient is unable to participate.Chaplain Sis, is working with the family to set up a meeting for Tuesday of next week. CM will follow. Date Signed: 11/25/2017 02:23 PM Electronically Signed By:Maty Patiño LCSW
--- NOTE | 2017-11-25 14:27 | PDINTPN ---
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 This was resected by Dr. Amaral in early November. He was admitted to [facility] 11/15/17 with septic shock and E. Coli bacteremia requiring pressors. He subsequently developed anuria from a stojne and hematuria (on Xarelto) so was taken to the OR for removal. This was complicated by cardiac arrest and brief CPR, followed by rapid afib which has been refractory to CV and multiple medications until when he converted to NSR. He was intubated in the OR, but extubated 11/20 without difficulty. Initial blood cultures 11/15 grew sensitive E. Coli, but fu cx 11/17 grew Milka. * Septic shock from E. Coli bacteremia and presumed urinary source. No longer on pressors with hemodynamic stability and covered with unasyn (not ertapenem). Aspiration PNA has also been suggested as a comorbidity. Repeat culture NTD * Bacteremia/fungemia- Milka on second culture. PICC line changed and started Micafungin. repeat cx NTD * Afib- resumed RVR and was treated with additional amiodarone bolus on 11/22 and digoxin, but remains at 130-140. started 25 metoprolol PT 11/24 but continues to have issues requiring multiple amiodarone boluses and both PO and IV metoprolol. His echo was limited and did not comment on the possibility of amyloidosis, so will recheckj * Acute respiratory failure related to all of the above and possible contribution from enterovirus. Lasix increased 11/23 to 40 bid and will continue same for now. CXR looks a bit better and UE edema improved * Anemia/thrombocytopenia- presumed related to Invanz and likely susceptible BM. Cross matching blood has been challenging, but little transfusion required. Improving. No transfusion required. OK to start prophylactic LMWH * Hypernatremia- improved 11/23 with addition of D5W, but worse when dc'd. Ongoing fluctuating issue. Asked to add benefiber to TF, review drips for excess sodium. Diarrhea persists but Cdiff negative * DVT of RUE associated with PICC. Anticoag held 2/2 TCP; as above * TAVON- resolved * Cardiac arrest- reportedly very brief and I dont anticipate neurologic sequelae. Continue to observe. * * 11/24/17 15:51 11/25/17 14:22 Subjective: stable overnight. Ongoing rapid afib Objective: Vital Signs Temp Pulse Resp BP Pulse Ox 37.4 C 140 H 27 H 121/65 H 93 11/25/17 11:02 11/25/17 14:00 11/25/17 14:00 11/25/17 14:00 11/25/17 14:00 Microbiology 11/21/17 21:00 Catheter Tip Culture - Final Catheter Tip Laboratory Results 11/25/17 08:28 11/25/17 08:28 11/24/17 11/25/17 11/26/17 05:59 05:59 05:59 Intake Total 2946 3642 Output Total 5400 3375 1999 Balance -2454 267 -2000 PT 16.7 SEC (12.0-15.0) H 11/23/17 06:00 INR 1.33 (0.83-1.16) H 11/23/17 06:00 Physical Exam - Physical Exam General Appearance: alert, no apparent distress, thin EENT: PERRL/EOMI Neck: supple Respiratory: lungs clear, normal breath sounds, decreased breath sounds, No respiratory distress, No accessory muscle use Cardiac/Chest: edema, tachycardia, irregularly irregular Abdomen: non-tender, soft, No distended Skin: normal color, warm/dry, No cyanosis Lymphatic: no adenopathy Extremities: pedal edema Neuro/Psych: alert, cognition abnormalities ICD10 Worksheet Patient Problems: Problems Problem Status Onset Atrial fibrillation Acute Pneumonia Acute Sepsis Acute
--- NOTE | 2017-11-25 16:05 | ASMTCMCOM ---
CM Note CM Note Notes: Chaplain Sis spoke to the patient's family re: the palliative care consult. Patient's stated she felt somewhat blindsided because she has been in denial but was grateful to have the discussion. She is interested in discussing Palliative and the meeting is tenatively set up for Tuesday. Nimo stated she would have been blindsided at any time because of the denial. Patient's nurse also expressed concern regarding the level of suffering the patient is having. Nimo, patient's , states he was DNR prior to surgery and she is hoping he is clear enough at some point soon to ask him his wishes at this point. If he can respond, she plans to change his status this evening. Dr. Perez spoke with the family to give them a clearer picture of his current medical status, letting them know he has a guarded prognosis and a lot to recover from in a deconditioned state. Dr. Perez did let them know in her opinion she would not put the patient through full code measures.CM may have to work with this family over the weekend if they decide they want to get the patient home. If there are changes, hospice may be appropriate. If not the plan is to follow up with palliative care on Tuesday of next week. Monitor also for advanced directives changing. CM will follow. Date Signed: 11/25/2017 04:05 PM Electronically Signed By:Maty Patiño LCSW
--- NOTE | 2017-11-25 16:17 | ECHO ---
[email or web address] [address] Main: [phone] Fax: Transthoracic Echocardiogram Name: RICARDO PEACE MR#: [id number] Study Date: 11/25/2017 Study Time: 03:15 PM Date of : 1945 Age: 72 year(s) Height: 180.3 cm (71 in.) Weight: 74.39 kg (164 lb.) BSA: 1.94 m2 Gender: Male Examination: Echo Indication: any evidence to support amyloidosis Image Quality: Adequate Contrast: Requested by: Bon Mtz BP: 121 mmHg/65 mmHg Heart Rate: Rhythm: Indication: any evidence to support amyloidosis Procedure Staff Research Methods Instructor: Yady Espinoza [facility] Reading Physician: Bora Waters MD Requesting Provider: Conclusions: No pericardial effusion. Ejection fraction 56%. There is no significant ventricular hypertrophy. There is mild mitral regurgitation. There is wkcm-io-mgyhfers tricuspid regurgitation with a right ventricular systolic pressure of 37 mm of mercury. Tissue Doppler reveals lateral E prime velocity of 10.6 centimeters/second. E over lateral E prime is 5.7. This examination is not consistent with cardiac amyloidosis. There are no findings consistent with a restrictive cardiomyopathy. Ejection fraction has improved from previous study. EKG shows normal voltage. Measurements: Chambers Valvular Assessment AV/MV Valvular Assessment TV/PV Normal Normal Normal Name Value Range Name Value Range Name Value Range Ao Vilma (2D): 3.5 cm (1.4 cm-2.6 AV meanP mmHg ( - ) TR Vmax: 2.84 mm/s ( - ) cm) SANCHEZ (VTI): 2.7 cm ( - ) TR PGmax: 32 mmHg ( - ) IVSd (2D): 0.9 cm (0.6 cm-1.1 AR (PHT): 459 ms ( - ) syst. PAP: 37 mmHg ( - ) cm) MV E Vmax: 0.67 m/s ( - ) PV Vmax: 1.15 m/s (0.6 m/s-0.9 LVDd (2D): 3.6 cm (4.2 cm-5.9 MV A Vmax: 0.74 m/s ( - ) m/s) cm) MV E/A: 0.91 ( - ) PV PGmax: 5 mmHg ( - ) LVDs (2D): 2.6 cm (2.1 cm-4 cm) MV PHT: 0.065 s ( - ) LVPWd (2D): 1.1 cm (0.6 cm-1 MVA (PHT): 3.4 s ( - ) cm) LVOTd 2.5 cm 2.5 cm mm LVEF (2D): 56 (>=54 %) RVDd(2D): 2.9 cm (1.9 cm-3.8 cmmm) Continued Measurements: Chambers Valvular Assessment AV/MV Valvular Assessment TV/PV Name Value Name Value Name Value Patient: RICARDO PEACE Study Date: 11/25/2017 Page 1 of 2 03:15 PM LADs: 2.3 cm MV DecTime: 190 m/s CVP (est.): 5 mmHg LADs Lon.9 cm MV E' Septal: 0.07 m/s LA Area: 16.2 cm2 MV E/E' Septal: 9.50 LA Volume: 47 ml MV E/E' Lateral: 4.80 LA Volume Index: 24.2 ml/m2 AR Vmax: 4.13 cm/s RA Area: 18.0 cm2 Additional Vessels Name Value Ao Ascendin.6 cm Findings: Left Ventricle: Normal size left ventricle. No LV hypertrophy. Normal global systolic LV function. EF is 56 %. No regional wall motion abnormality. Unable to assess diastolic dysfunction. Right Ventricle: Normal size right ventricle. Normal RV function. Left Atrium: The left atrium is normal in size. Right Atrium: The right atrium is normal in size. Mitral Valve: The mitral valve is normal in appearance and function. Mild mitral valve regurgitation is present. No mitral stenosis is present. Aortic Valve: The aortic valve is normal in appearance and function. Mild to moderate aortic valve regurgitation. No aortic valve stenosis is present. Tricuspid Valve: The tricuspid valve is normal in appearance and function. Mild to moderate tricuspid valve regurgitation. The pulmonary artery pressure is normal. Right ventricular systolic pressure measures 37mmHg. Pulmonic Valve: The pulmonic valve is normal in appearance and function. Moderate pulmonic valve regurgitation is noted. Aorta: The aorta is normal. Normal size aortic root measuring 3.5 cm. Normal size ascending aorta measuring 3.6 cm. IVC: The IVC is normal sized. Pericardium: Trivial pericardial effusion. There is a pleural effusion present. Exam Comments: (No Signature Object) Patient: RICARDO PEACE Study Date: 11/25/2017 Page 2 of 2 03:15 PM [id number]
[2017-11-25] MEDS ORDERED: POTASSIUM Cl (KCl) 20 MEQ/50 ML BAG IV ONE (18:39)
[2017-11-25] MEDS: POTASSIUM Cl (KCl) 50 ML IV SCH (20:15)
[2017-11-25] MEDS: MELATONIN 3 MG TAB TUBE SCH (20:27)
[2017-11-25] MEDS: HYDROmorphONE/DILAUDID 2 MG/ML INJ IVP PRN (21:27)
[2017-11-26] MEDS: AMPICILLIN/SULBACTAM 3 GM in NS 100 ML IV SCH ×4 (00:19→16:51)
[2017-11-26] MEDS: INSULIN REGULAR HUMAN 100 UNIT/ML UNIT SC SCH ×4 (00:34→18:01)
[2017-11-26] MEDS: HYDROmorphONE/DILAUDID 2 MG/ML INJ IVP PRN ×4 (03:32→21:35)
[2017-11-26] MEDS: FUROSEMIDE 40 MG/4 ML VIAL IVP SCH (05:35)
[2017-11-26 06:13] LABS: PLATELET COUNT 66 10^3/uL (150-400)
[2017-11-26] MEDS: POTASSIUM Cl (KCl) 50 ML IV SCH ×2 (07:31→08:18)
[2017-11-26] MEDS: ENOXAPARIN 40 MG/0.4 ML SYR SC SCH (08:18)
[2017-11-26] MEDS: MICAFUNGIN NA 100 MG in NS 100 ML IV SCH (08:18)
[2017-11-26] MEDS: D5W 1,000 ML IV SCH (08:18)
[2017-11-26] MEDS: LIDO/ZINC OX/CLOTRIMAZOLE (MAD) 116 GM CREAM TP SCH ×2 (08:19→21:24)
[2017-11-26] MEDS: AMIODARONE HCL 200 MG TAB PO SCH (08:19)
[2017-11-26] MEDS: ACYCLOVIR 400 MG TAB TUBE SCH ×2 (08:19→21:23)
[2017-11-26] MEDS: METOPROLOL TARTRATE 25 MG TAB PO SCH ×2 (08:19→21:24)
[2017-11-26] MEDS ORDERED: MAGNESIUM SULF 1 GM/DEXTROSE 100 ML IV ONE (12:52)
--- NOTE | 2017-11-26 15:19 | PDINTPN ---
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 This was resected by Dr. Amaral in early November. He was admitted to [facility] 11/15/17 with septic shock and E. Coli bacteremia requiring pressors. He subsequently developed anuria from a stojne and hematuria (on Xarelto) so was taken to the OR for removal. This was complicated by cardiac arrest and brief CPR, followed by rapid afib which has been refractory to CV and multiple medications until when he converted to NSR. He was intubated in the OR, but extubated 11/20 without difficulty. Initial blood cultures 11/15 grew sensitive E. Coli, but fu cx 11/17 grew Milka. * Septic shock from E. Coli bacteremia and presumed urinary source. remains off pressors with hemodynamic stability and covered with unasyn (not ertapenem). Aspiration PNA has also been suggested as a comorbidity. Repeat culture NTD. His mental status has been narginal for several days, but has clearly showed improvement especially today. * Bacteremia/fungemia- Milka on second culture. PICC line changed and started Micafungin started, repeat cx NTD * Afib- resumed RVR and was treated with additional amiodarone bolus on 11/22 and digoxin, but remains at 130-140. started 25 metoprolol PT 11/24 but continues to have issues requiring multiple amiodarone boluses and both PO and IV metoprolol. in sustained NSR 11/26. Repeat complete echo without evidence suggestive of amyloid. * Acute respiratory failure related to all of the above and possible contribution from enterovirus. Lasix increased 11/23 to 40 bid. His edema both peripherally and by CXR have mirrored the afib control and he is now on 3 lpm with clear lungs. His CT is c/w pulmonary edema, and not likely myeloma. Will reduce lasix today to avoid over-diuresis and observe. OOB to chair as tolerated * Anemia/thrombocytopenia- presumed related to Invanz and likely susceptible BM. Cross matching blood has been challenging, but little transfusion required. Improving. No transfusion required. OK to start prophylactic LMWH * Hypernatremia- improved 11/23 with addition of D5W, but worse when dc'd. Ongoing fluctuating issue. Asked to add benefiber to TF, review drips for excess sodium. * FEN- TF at goal with addition of benefiber to reduce diarrhea. Diarrhea persists but Cdiff negative. Recheck swallow today and may change to PO if passes. * DVT of RUE associated with PICC. Anticoag held 2/2 TCP; as above * TAVON- resolved * Cardiac arrest- reportedly very brief and I dont anticipate neurologic sequelae. Continue to observe. * * Subjective: feels well and reported good nights sleep. Objective: Vital Signs Temp Pulse Resp BP Pulse Ox 36.8 C 81 17 108/51 L 92 11/26/17 12:00 11/26/17 14:00 11/26/17 14:00 11/26/17 14:00 11/26/17 14:00 Microbiology 11/17/17 18:28 Blood Panel (PCR) - Final Blood Milka Albicans 11/21/17 21:00 Catheter Tip Culture - Final Catheter Tip Laboratory Results 11/26/17 05:35 11/26/17 05:35 11/25/17 11/26/17 11/27/17 05:59 05:59 05:59 Intake Total 3642 3317 Output Total 3375 5000 Balance 267 -1683 PT 16.7 SEC (12.0-15.0) H 11/23/17 06:00 INR 1.33 (0.83-1.16) H 11/23/17 06:00 Physical Exam - Physical Exam General Appearance: alert, no apparent distress, thin EENT: PERRL/EOMI Neck: supple Respiratory: lungs clear, normal breath sounds, No respiratory distress, No accessory muscle use Cardiac/Chest: regular rate, rhythm, edema, No tachycardia Abdomen: non-tender, soft, No distended Skin: normal color, warm/dry, No cyanosis Lymphatic: no adenopathy Extremities: pedal edema, other (right thigh incision clean and dry) Neuro/Psych: alert, normal mood/affect, cognition abnormalities ICD10 Worksheet Patient Problems: Problems Problem Status Onset Atrial fibrillation Acute Pneumonia Acute Sepsis Acute
--- NOTE | 2017-11-26 15:22 | HOSPPROG ---
Hospitalist Progress Note Assessment/Plan: 72 yo M with hx of MM presenting with septic shock * Septic shock - off pressors, presumably urinary source, monitoring * candidemia: 1/2 cultures growing milka with repeat cxs not showing yeast, continue micafungin * Acute respiratory failure s/p extubation and o2 needs continue to decrease, now down to 3L * aspiration pna: covered by current abx * Cardiac arrest - brief CPR/Epi * Afib--continued on amiodarone and metoprolol * Metabolic encephalopathy - head ct negative, continues to wax and wane, suspect ICU delirium * Ecoli bacteremia-unasyn as above, repeat cxs negative * PICC line related DVT-given low plts only on ppx lmwh at this time * Kidney stone with bladder hematoma s/p evacuation Dr. 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 * Thrombocytopenia-improving * Chronic steroids - s/p stress dose * Dysphagia - NPO - tube feeds--will ask UNIVERSITY MANAGER to re-evaluate now that mental status is improving * Volume overload--continue lasix * Hypernatremia-remains slightly elevated, continue d5w * Enterovirus /rhinovirus- isolation, per Id less likely to be causative organism * goals of care: patient appears stable to slightly improved and family interested in hearing about palliative options, not hospice at this time Care plan reviewed with Dr. Mtz and multidisciplinary team on rounds. Subjective: no acute overnight events, patient is currently more interactive, states his breathing is better Objective: Vital Signs Temp Pulse Resp BP Pulse Ox 36.8 C 81 17 108/51 L 92 11/26/17 12:00 11/26/17 14:00 11/26/17 14:00 11/26/17 14:00 11/26/17 14:00 Microbiology 11/17/17 18:28 Blood Panel (PCR) - Final Blood Milka Albicans 11/21/17 21:00 Catheter Tip Culture - Final Catheter Tip Laboratory Results 11/26/17 05:35 11/26/17 05:35 11/25/17 11/26/17 11/27/17 05:59 05:59 05:59 Intake Total 3642 3317 Output Total 3375 5000 Balance 267 -1683 PT 16.7 SEC (12.0-15.0) H 11/23/17 06:00 INR 1.33 (0.83-1.16) H 11/23/17 06:00 awake somnolent anicteric sclera injected op clear rrr tachy cta b soft nt nd ble edema warm dry well perfused oriented - Time Spent With Patient Time Spent with Patient: greater than 35 minutes Time Spent with Patient: Greater than 35 minutes spent on this patients care, greater than 50% of time spent counseling, educating, and coordinating care regarding the above mentioned plan. ICD10 Worksheet Patient Problems: Problems Problem Status Onset Atrial fibrillation Acute Pneumonia Acute Sepsis Acute
--- NOTE | 2017-11-26 15:44 | PCMIDPN ---
Assessment/Plan: Assessment: septic shock secondary to e. coli bacteremia from what is felt to be a source. The isolate is gomez-sensitive. This is slowly resolving. Continuing Unasyn coverage encompasses this treatment. LLL infiltrate - persisting on CT scans. Also has atypical infiltrates in other areas of the lungs which may or may not be infectious. Interestingly the patient has made a profound clinical improvement over the last 24 hr. He is awake, alert and much less short of breath. Line related fungemia secondary to Milka albicans. Receiving micafungin for treatment. Plan: 1) Continue IV Unasyn. 2) continue micafungin. 3) follow-up progress clinically. 11/26/17 15:41 Subjective: Patient looks much much better today. He is awake, alert and in good spirits. He is breathing comfortably. He has no new complaints. "I feel pretty good." Objective: Unasyn # 7 Micafungin # 6 Vital Signs Temp Pulse Resp BP Pulse Ox 36.8 C 81 17 108/51 L 92 11/26/17 12:00 11/26/17 14:00 11/26/17 14:00 11/26/17 14:00 11/26/17 14:00 Microbiology 11/17/17 18:28 Blood Panel (PCR) - Final Blood Milka Albicans 11/21/17 21:00 Catheter Tip Culture - Final Catheter Tip Laboratory Results 11/26/17 05:35 11/26/17 05:35 11/25/17 11/26/17 11/27/17 05:59 05:59 05:59 Intake Total 3642 3317 Output Total 3375 5000 Balance 267 -1683 - Physical Exam General Appearance: WD/WN, alert, no apparent distress, non-toxic Respiratory: lungs clear, normal breath sounds, No respiratory distress, No stridor, No wheezing Cardiac/Chest: regular rate, rhythm, No tachycardia, No irregularly irregular Extremities: non-tender, normal inspection Skin: normal color, warm/dry, No rash Neuro/Psych: alert, normal mood/affect, oriented x 3 ICD10 Worksheet Patient Problems: Problems Problem Status Onset Atrial fibrillation Acute Pneumonia Acute Sepsis Acute
--- NOTE | 2017-11-26 19:10 | ASMTCMCOM ---
CM Note CM Note Notes: Asked by RN to meet w/pt's family regarding questions they have. Met w/pt's Chanelle and some other family members. They had many dc planning questions as well as questions about palliative care and Hospice. We discussed each type of care and the difference btw them. They seem to be leaning more towards palliative and rehab and they have begun looking at rehab facilities near [place]. PT/OT recommending SNF rehab. Family will continue to look at facilities and then let us know which ones we should send referrals to. Discussed w/Dr Perez. There will be a palliative care conference on November 29, time not scheduled yet so will need to follow up Tuesday AM on this. Date Signed: 11/26/2017 07:09 PM Electronically Signed By:Little Rodriguez RN
[2017-11-26] MEDS: POTASSIUM CL 10 MEQ TAB TUBE ONE ×2 (21:23→21:33)
[2017-11-26] MEDS: FUROSEMIDE 20 MG/2 ML VIAL IVP SCH (21:23)
[2017-11-26] MEDS: MELATONIN 3 MG TAB TUBE SCH (21:25)
[2017-11-26] MEDS ORDERED: POTASSIUM CL 20 MEQ/15 ML UDCUP TUBE ONE (21:30)
[2017-11-27] MEDS: INSULIN REGULAR HUMAN 100 UNIT/ML UNIT SC SCH ×4 (00:02→18:09)
[2017-11-27] MEDS: D5W 1,000 ML IV SCH (00:03)
[2017-11-27] MEDS: AMPICILLIN/SULBACTAM 3 GM in NS 100 ML IV SCH ×4 (05:36→18:08)
[2017-11-27 05:53] LABS: PLATELET COUNT 66 10^3/uL (150-400)
[2017-11-27] MEDS: MICAFUNGIN NA 100 MG in NS 100 ML IV SCH (08:20)
[2017-11-27] MEDS: ENOXAPARIN 40 MG/0.4 ML SYR SC SCH (08:26)
[2017-11-27] MEDS: FUROSEMIDE 20 MG/2 ML VIAL IVP SCH ×2 (08:26→20:13)
[2017-11-27] MEDS: METOPROLOL TARTRATE 25 MG TAB PO SCH ×2 (08:26→20:14)
[2017-11-27] MEDS: ACYCLOVIR 400 MG TAB TUBE SCH ×2 (08:26→20:14)
[2017-11-27] MEDS: AMIODARONE HCL 200 MG TAB PO SCH (08:27)
[2017-11-27] MEDS: POTASSIUM Cl (KCl) 50 ML IV SCH ×8 (08:28→22:35)
[2017-11-27] MEDS: LIDO/ZINC OX/CLOTRIMAZOLE (MAD) 116 GM CREAM TP SCH ×2 (09:59→20:15)
[2017-11-27] MEDS ORDERED: MAGNESIUM SULF 1 GM/DEXTROSE 100 ML IV ONE (10:34)
--- NOTE | 2017-11-27 10:39 | PCMIDPN ---
Assessment/Plan: 1. Sepsis secondary to E coli from genitourinary source, status post bladder irrigation and removal of bladder stone: Continue Unasyn as is for 2 more days to complete 14 days of therapy, stop date November 29. Hopefully the Tubbs catheter can be removed soon. 2. ? Aspiration pneumonia with left lower lobe infiltrate: Covered with Unasyn. The patient unfortunately failed his swallow evaluation. 3. Milka albicans line-related fungemia: The line was removed. Repeat blood cultures are negative. Although the Milka albicans isolate is susceptible to fluconazole, we are unable to use this medication in the setting of concomitant amiodarone and the risk for QTC prolongation. Continue Micafungin as is to complete 14 days of therapy, or 7 more days, stop date December 04. 11/27/17 10:38 Subjective: About the same. Unfortunately failed his swallow evaluation. No real complaints. Fairly stoical. Nurse reports no significant diarrhea today. Objective: Unasyn 3 g IV q.6 hours day 8 (antibiotics total day 06/16) Micafungin 100 mg IV daily day 01/14 T-max 37.2 degrees 98% on 3 L Vital Signs Temp Pulse Resp BP Pulse Ox 37.2 C 72 17 110/51 L 98 11/27/17 08:00 11/27/17 08:26 11/27/17 08:00 11/27/17 08:26 11/27/17 08:00 Laboratory Results 11/27/17 09:35 11/27/17 03:45 11/26/17 11/27/17 11/28/17 05:59 05:59 05:59 Intake Total 3317 3212 Output Total 5000 3100 Balance -1683 112 Blood cultures from November 23 no growth - Physical Exam General Appearance: no apparent distress, cachetic EENT: other (Dry mucous membranes) Respiratory: other (Diminished breath sounds bilaterally, poor inspiratory effort) Cardiac/Chest: regular rate, rhythm Extremities: other (Right lower extremity swollen given underlying DVT, PICC line left upper extremity looks fine with no swelling or erythema) Abdomen: non-tender, soft Skin: other (Patient's left lower extremity incision is clean, dry intact with Steri-Strips in place. No erythema.), No rash Neuro/Psych: oriented x 3 ICD10 Worksheet Patient Problems: Problems Problem Status Onset Atrial fibrillation Acute Pneumonia Acute Sepsis Acute
--- NOTE | 2017-11-27 12:26 | ASMTCMCOM ---
CM Note CM Note Notes: Patient status reviewed in rounds.He has pneumonia, sepsis and has failed his swallow evaluation. Per therapy they recommend SNF. His verbalized concerns regarding post hospitalization placement and rehab. 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 Referrals to LTAC facilities placed in allscripts. CM to follow. Plan: LTAC Versus SNF Date Signed: 11/27/2017 12:25 PM Electronically Signed By:Joann Kruse RN
--- NOTE | 2017-11-27 12:32 | PDINTPN ---
Gold Marker Progress Note Assessment/Plan: Assessment/plan: 72 M with known multiple myeloma diagnosed 2012 with 30% bone marrow involvement treated with chemotherapy and focused XRT, but declined HSCT. 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 This was resected by Dr. Amaral in early November. He was admitted to [facility] 11/15/17 with septic shock and E. Coli bacteremia requiring pressors. He subsequently developed anuria from a stojne and hematuria (on Xarelto) so was taken to the OR for removal. This was complicated by cardiac arrest and brief CPR, followed by rapid afib which has been refractory to CV and multiple medications until when he converted to NSR. He was intubated in the OR, but extubated 11/20 without difficulty. Initial blood cultures 11/15 grew sensitive E. Coli, but fu cx 11/17 grew Milka. * Septic shock from E. Coli bacteremia and presumed urinary source. remains off pressors with hemodynamic stability and covered with unasyn (not ertapenem). Aspiration PNA has also been suggested as a comorbidity. Repeat culture NTD. His mental status was marginal for several days, but has clearly showed significant improvement 11/26 and 11/27 * Bacteremia/fungemia- Milka on second culture. PICC line changed and started Micafungin started, repeat cx NTD. ID recs noted * Afib- resumed RVR and was treated with additional amiodarone bolus on 11/22 and digoxin, but remains at 130-140. started 25 metoprolol PT 11/24 but continues to have issues requiring multiple amiodarone boluses and both PO and IV metoprolol. In sustained NSR as of 11/26. Repeat complete echo without evidence suggestive of amyloid. Continue amiodarone and metoprolol * Acute respiratory failure related to all of the above and possible contribution from enterovirus. Lasix increased 11/23 to 40 bid. His edema both peripherally and by CXR have mirrored the afib control and he is now on 3 lpm with clear lungs. His CT is c/w pulmonary edema, and not likely myeloma. Will reduce lasix 11/26 to avoid over-diuresis and observe. OOB to chair as tolerated * Anemia/thrombocytopenia- presumed related to Invanz and likely susceptible BM. Cross matching blood has been challenging, but little transfusion required. Improving. No transfusion required. OK to start prophylactic LMWH * Hypernatremia- improved 11/23 with addition of D5W, but worse when dc'd. Ongoing fluctuating issue. Asked to add benefiber to TF, review drips for excess sodium. * FEN- TF at goal with addition of benefiber to reduce diarrhea. Diarrhea persists but Cdiff negative. Recheck swallow today and may change to PO if passes. * DVT of RUE associated with PICC. Anticoag held 2/2 TCP; as above * TAVON- resolved * Cardiac arrest- reportedly very brief and I dont anticipate neurologic sequelae. Continue to observe. * * 11/27/17 12:30 Subjective: feels ok. slept well Objective: Vital Signs Temp Pulse Resp BP Pulse Ox 37.2 C 76 16 115/49 L 94 11/27/17 08:00 11/27/17 10:00 11/27/17 10:00 11/27/17 10:00 11/27/17 10:00 Laboratory Results 11/27/17 09:35 11/27/17 03:45 11/26/17 11/27/17 11/28/17 05:59 05:59 05:59 Intake Total 3317 3212 Output Total 5000 3100 Balance -1683 112 PT 16.7 SEC (12.0-15.0) H 11/23/17 06:00 INR 1.33 (0.83-1.16) H 11/23/17 06:00 Physical Exam - Physical Exam General Appearance: alert, no apparent distress, thin EENT: PERRL/EOMI Neck: supple Respiratory: lungs clear, normal breath sounds, decreased breath sounds, No respiratory distress, No accessory muscle use Cardiac/Chest: regular rate, rhythm, edema Abdomen: non-tender, soft, No distended Skin: normal color, warm/dry, No cyanosis Lymphatic: no adenopathy Extremities: pedal edema Neuro/Psych: alert, normal mood/affect, cognition abnormalities ICD10 Worksheet Patient Problems: Problems Problem Status Onset Atrial fibrillation Acute Pneumonia Acute Sepsis Acute
--- NOTE | 2017-11-27 13:20 | SOAPPROG ---
SOAP Progress Note Assessment/Plan: Assessment: 1) Multiple myeloma with relapse 2) E. Coli sepsis 3) A fib 4) PICC related DVT 5) Anemia Plan: Shae is slowly recovering. He may be transferred to an LTAC late next week. He and his live in [place], so follow up may be difficult. We could possibly arrange follow up with one of our partners in [facility] or [facility] on a temporary basis if needed. Shae has persistent anemia. It is improved from yesterday. No transfusion support today. He is tolerating the anemia. His prior Daratumumab make crossmatch difficult, however [facility] can assist with any transfusions based on red cell phenotype as needed. Continue current abx. Low dose Lovenox has been started for his PICC related DVT. 's questions answered. 11/27/17 13:16 11/27/17 13:20 11/27/17 13:22 11/27/17 13:23 Subjective: Remains in ICU. Denies pain. at bedside. Denies SOB at rest Objective: Vital Signs Temp Pulse Resp BP Pulse Ox 37 C 76 20 114/46 L 99 11/27/17 12:00 11/27/17 12:00 11/27/17 12:00 11/27/17 12:00 11/27/17 12:00 Laboratory Results 11/27/17 09:35 11/27/17 03:45 11/26/17 11/27/17 11/28/17 05:59 05:59 05:59 Intake Total 3317 3212 Output Total 5000 3100 Balance -1683 112 PT 16.7 SEC (12.0-15.0) H 11/23/17 06:00 INR 1.33 (0.83-1.16) H 11/23/17 06:00 - Time Spent With Patient Time Spent With Patient: 20 minutes Physical Exam - Physical Exam General Appearance: alert Cardiac/Chest: regular rate, rhythm Abdomen: non-tender, soft Neuro/Psych: normal mood/affect ICD10 Worksheet Patient Problems: Problems Problem Status Onset Atrial fibrillation Acute Pneumonia Acute Sepsis Acute
--- NOTE | 2017-11-27 16:00 | HOSPPROG ---
Hospitalist Progress Note Assessment/Plan: 72 yo M with hx of MM presenting with septic shock * Septic shock - off pressors, presumably urinary source, monitoring * candidemia: 1/2 cultures growing aleksandra with repeat cxs not showing yeast, continue micafungin * Acute respiratory failure s/p extubation and o2 needs continue to decrease, now down to 3L * aspiration pna: covered by current abx * Cardiac arrest - brief CPR/Epi * Afib--continued on amiodarone and metoprolol and now in NSR * Metabolic encephalopathy - head ct negative, continues to wax and wane, suspect ICU delirium * Ecoli bacteremia-unasyn as above, repeat cxs negative * PICC line related DVT-given low plts only on ppx lmwh at this time * Kidney stone with bladder hematoma s/p evacuation Dr. Mtz 11/16 * ABL anemia s/p transfusion--h/h continue to trend down again today, borderline for transfusion but given that he is tolerating anemia will hold off for now * Multiple myeloma--appreciate onc input * Leg plasmacytoma s/p recent ortho stabilization with hardware * Thrombocytopenia-improving * Chronic steroids - s/p stress dose * Dysphagia - NPO - tube feeds--will ask RESEARCH HYDROLOGIST to re-evaluate now that mental status is improving * Volume overload--continue lasix * Hypernatremia-remains slightly elevated, continue d5w * Enterovirus /rhinovirus- isolation, per Id less likely to be causative organism * goals of care: patient appears stable to slightly improved and family interested in hearing about palliative options, not hospice at this time dispo likely to LTAC in coming week Care plan reviewed with Dr. Mtz and multidisciplinary team on rounds. Subjective: no significant overnight events, continues to be very weak but otherwise stable Objective: Vital Signs Temp Pulse Resp BP Pulse Ox 37 C 80 20 120/47 L 95 11/27/17 12:00 11/27/17 14:00 11/27/17 14:00 11/27/17 14:00 11/27/17 14:00 Laboratory Results 11/27/17 09:35 11/27/17 03:45 11/26/17 11/27/17 11/28/17 05:59 05:59 05:59 Intake Total 3317 3212 Output Total 5000 3100 1000 Balance -1683 112 -1000 PT 16.7 SEC (12.0-15.0) H 05/23/18 06:00 INR 1.33 (0.83-1.16) H 11/23/17 06:00 awake chronically illl appearing somnolent anicteric sclera injected op clear rrr tachy cta b soft nt nd ble edema warm dry well perfused oriented ICD10 Worksheet Patient Problems: Problems Problem Status Onset Atrial fibrillation Acute Pneumonia Acute Sepsis Acute
[2017-11-27] MEDS: MELATONIN 3 MG TAB TUBE SCH (20:14)
[2017-11-28] MEDS: INSULIN REGULAR HUMAN 100 UNIT/ML UNIT SC SCH ×5 (00:31→23:46)
[2017-11-28] MEDS: AMPICILLIN/SULBACTAM 3 GM in NS 100 ML IV SCH ×5 (00:31→23:34)
[2017-11-28 07:04] LABS: PLATELET COUNT 87 10^3/uL (150-400)
[2017-11-28] MEDS ORDERED: POTASSIUM CL 20 MEQ/15 ML UDCUP TUBE ONE ×2 (09:28→23:23)
[2017-11-28] MEDS: LIDO/ZINC OX/CLOTRIMAZOLE (MAD) 116 GM CREAM TP SCH ×2 (09:30→20:32)
--- NOTE | 2017-11-28 09:59 | PCMIDPN ---
Assessment/Plan: Assessment/Plan: * Sepsis due to E coli bacteremia of urinary etiology status post operative bladder irrigation and removal of bladder stone: Completing 14 days of antibiotic therapy. Significant clinical improvement. (day # 13/14). * Candidemia: 1/2 cultures from 11/17/17 with growth of Milka albicans. Repeat blood cultures do not show persisting candidemia. Isolate is azole susceptible but this is precluded by concomitant amiodarone use. Completing 14 days of micafungin (# 8/). * Elevated liver enzymes: Improved. * Probable aspiration pneumonia: Covered by Unasyn as outlined above. * Status post recent left lower extremity orthopedic fixation: No signs or symptoms of infection at orthopedic fixation site. 11/28/17 09:59 Subjective: Patient feels much better. No specific complaints. Objective: Vital Signs Temp Pulse Resp BP Pulse Ox 36.8 C 75 20 116/46 L 98 11/28/17 08:00 11/28/17 08:00 11/28/17 08:00 11/28/17 08:00 11/28/17 08:00 Microbiology 11/23/17 06:32 Blood Culture - Final Blood 11/23/17 06:00 Blood Culture - Final Blood Laboratory Results 11/28/17 06:00 11/28/17 06:00 11/27/17 11/28/17 11/29/17 05:59 05:59 05:59 Intake Total 3212 2175 Output Total 3100 3600 Balance 112 -1425 Unasyn # 13/14 Micafungin # 8/14 - Physical Exam General Appearance: alert, no apparent distress EENT: No scleral icterus, No thrush Respiratory: No respiratory distress Cardiac/Chest: regular rate, rhythm Extremities: No inflammation (Surgical site healing well without inflammatory changes) Abdomen: non-tender, No distended ICD10 Worksheet Patient Problems: Problems Problem Status Onset Atrial fibrillation Acute Pneumonia Acute Sepsis Acute
[2017-11-28] MEDS: MICAFUNGIN NA 100 MG in NS 100 ML IV SCH (10:17)
[2017-11-28] MEDS: METOPROLOL TARTRATE 25 MG TAB PO SCH ×2 (10:17→20:29)
[2017-11-28] MEDS: ACYCLOVIR 400 MG TAB TUBE SCH ×2 (10:17→20:29)
[2017-11-28] MEDS: FUROSEMIDE 20 MG/2 ML VIAL IVP SCH ×2 (10:17→20:29)
[2017-11-28] MEDS: AMIODARONE HCL 200 MG TAB PO SCH (10:17)
--- NOTE | 2017-11-28 11:22 | PDINTPN ---
Evaporator Operator Progress Note Assessment/Plan: Assessment/plan: 72 M with known multiple myeloma diagnosed 2012 with 30% bone marrow involvement treated with chemotherapy and focused XRT, but declined HSCT. 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 This was resected by Dr. Amaral in early November. He was admitted to [facility] 11/15/17 with septic shock and E. Coli bacteremia requiring pressors. He subsequently developed anuria from a stojne and hematuria (on Xarelto) so was taken to the OR for removal. This was complicated by cardiac arrest and brief CPR, followed by rapid afib which has been refractory to CV and multiple medications until when he converted to NSR. He was intubated in the OR, but extubated 11/20 without difficulty. Initial blood cultures 11/15 grew sensitive E. Coli, but fu cx 11/17 grew Milka. * Septic shock from E. Coli bacteremia and presumed urinary source. remains off pressors with hemodynamic stability and covered with unasyn (not ertapenem). Aspiration PNA has also been suggested as a comorbidity. Repeat culture NTD. His mental status was marginal for several days, but has clearly showed significant improvement 11/26 and 11/27; now likely near baseline * Bacteremia/fungemia- Milka on second culture. PICC line changed and started Micafungin started, repeat cx NTD. ID recs noted * Afib- resumed RVR and was treated with additional amiodarone bolus on 11/22 and digoxin, but remains at 130-140. started 25 metoprolol PT 11/24 but continues to have issues requiring multiple amiodarone boluses and both PO and IV metoprolol. In sustained NSR as of 11/26. Repeat complete echo without evidence suggestive of amyloid. Continue amiodarone and metoprolol * Acute respiratory failure related to all of the above and possible contribution from enterovirus. Lasix increased 11/23 to 40 bid. His edema both peripherally and by CXR have mirrored the afib control and he is now on 3 lpm with clear lungs. His CT is c/w pulmonary edema, and not likely myeloma. Will reduce lasix 11/26 to avoid over-diuresis and observe. OOB to chair as tolerated * Anmeia- his H/H have been low, now 6.4 so will transfuse 2 units rbcs and dc LMWH. May be gastritis but continue close observation since no obvious bleeding source. * thrombocytopenia- presumed related to Invanz and likely susceptible BM. Cross matching blood has been challenging, but little transfusion required. Improving. * Hypernatremia- improved 11/23 with addition of D5W, but worse when dc'd. Ongoing fluctuating issue now largely resolved * FEN- TF at goal but starting to swallow honey-thickened * DVT of RUE associated with PICC. Line changed * Recent leg surgery for plasmacytoma- surgical site has remained free of evidence of infection or bleeding * TAVON- resolved * Bladder hematoma/stone- required OR initially, complicated by brief cardiac arrest and refractory afib. Tubbs remains and will need urology re-eval for plans. * Cardiac arrest- reportedly very brief and I dont anticipate neurologic sequelae. Continue to observe. * * Subjective: continues to improve Objective: Vital Signs Temp Pulse Resp BP Pulse Ox 36.8 C 79 20 116/46 L 98 11/28/17 08:00 11/28/17 10:17 11/28/17 08:00 11/28/17 10:17 11/28/17 08:00 Microbiology 11/23/17 06:32 Blood Culture - Final Blood 11/23/17 06:00 Blood Culture - Final Blood Laboratory Results 11/28/17 06:00 11/28/17 06:00 11/27/17 11/28/17 11/29/17 05:59 05:59 05:59 Intake Total 3212 2175 Output Total 3100 3600 Balance 112 -1425 PT 16.7 SEC (12.0-15.0) H 11/23/17 06:00 INR 1.33 (0.83-1.16) H 11/23/17 06:00 Physical Exam - Physical Exam General Appearance: alert, no apparent distress, thin EENT: PERRL/EOMI Neck: supple Respiratory: lungs clear, normal breath sounds, No respiratory distress, No accessory muscle use Cardiac/Chest: regular rate, rhythm, edema (significantly improved) Abdomen: non-tender, soft, No distended Skin: normal color, warm/dry, No cyanosis Lymphatic: no adenopathy Extremities: pedal edema Neuro/Psych: alert, normal mood/affect, oriented x 3 ICD10 Worksheet Patient Problems: Problems Problem Status Onset Atrial fibrillation Acute Pneumonia Acute Sepsis Acute
--- NOTE | 2017-11-28 14:35 | HOSPPROG ---
Hospitalist Progress Note Assessment/Plan: 72 yo M with hx of MM presenting with septic shock * Septic shock - off pressors, presumably urinary source, improved * candidemia: 1/2 cultures growing milka with repeat cxs not showing yeast, continue micafungin until 12/04 * Acute respiratory failure s/p extubation and o2 needs continue to decrease, now down to 3L * aspiration pna: covered by current abx * Cardiac arrest - brief CPR/Epi * Afib--continued on amiodarone and metoprolol and now in NSR * Metabolic encephalopathy - head ct negative, continues to wax and wane, suspect ICU delirium * Ecoli bacteremia-unasyn as above, continue unasyn until 11/29 * PICC line related DVT-given low plts only on ppx lmwh at this time * Kidney stone with bladder hematoma s/p evacuation Dr. Mtz 11/16 * ABL anemia s/p transfusion--h/h continue to trend down again today, borderline for transfusion but given that he is tolerating anemia will hold off for now * Multiple myeloma--appreciate onc input * Leg plasmacytoma s/p recent ortho stabilization with hardware * Thrombocytopenia-improving * Chronic steroids - s/p stress dose * Dysphagia - NPO - tube feeds--will ask TELEVISION PRODUCTION CLERK to re-evaluate now that mental status is improving * Volume overload--continue lasix * Hypernatremia-remains slightly elevated, continue d5w * Enterovirus /rhinovirus- isolation, per Id less likely to be causative organism * goals of care: patient appears stable to slightly improved and family interested in hearing about palliative options, not hospice at this time dispo likely to LTAC in coming week Care plan reviewed with Dr. Mtz and multidisciplinary team on rounds. Subjective: no significant overnight events, patient much more alert and interactive today, cleared for diet by schedule planning manager Objective: Vital Signs Temp Pulse Resp BP Pulse Ox 36.8 C 82 25 H 106/54 L 94 11/28/17 08:00 11/28/17 12:00 11/28/17 12:00 11/28/17 12:00 11/28/17 12:00 Microbiology 11/17/17 18:28 Blood Culture - Final Blood Milka Albicans Blood Panel (PCR) - Final Milka Albicans 11/23/17 06:32 Blood Culture - Final Blood 11/23/17 06:00 Blood Culture - Final Blood Laboratory Results 11/28/17 06:00 11/28/17 06:00 11/27/17 11/28/17 11/29/17 05:59 05:59 05:59 Intake Total 3212 2175 Output Total 3100 3600 Balance 112 -1425 PT 16.7 SEC (12.0-15.0) H 11/23/17 06:00 INR 1.33 (0.83-1.16) H 11/23/17 06:00 awake chronically illl appearing somnolent anicteric sclera injected op clear rrr tachy cta b soft nt nd ble edema warm dry well perfused oriented ICD10 Worksheet Patient Problems: Problems Problem Status Onset Atrial fibrillation Acute Pneumonia Acute Sepsis Acute
[2017-11-28] MEDS: MELATONIN 3 MG TAB TUBE SCH (20:29)
[2017-11-28] MEDS: ACETAMINOPHEN 650 MG/20.3 ML UDCUP TUBE PRN (23:35)
[2017-11-29] MEDS: INSULIN REGULAR HUMAN 100 UNIT/ML UNIT SC SCH ×3 (06:30→18:52)
[2017-11-29] MEDS: AMPICILLIN/SULBACTAM 3 GM in NS 100 ML IV SCH ×3 (06:36→18:23)
[2017-11-29 06:46] LABS: PLATELET COUNT 103 10^3/uL (150-400)
[2017-11-29] MEDS ORDERED: POTASSIUM CL 10 MEQ TAB PO ONE (07:38)
[2017-11-29] MEDS ORDERED: POTASSIUM CL 20 MEQ/15 ML UDCUP PO ONE (08:00)
[2017-11-29] MEDS: FUROSEMIDE 20 MG/2 ML VIAL IVP SCH (10:01)
[2017-11-29] MEDS: ACYCLOVIR 400 MG TAB TUBE SCH ×2 (10:01→21:38)
[2017-11-29] MEDS: METOPROLOL TARTRATE 25 MG TAB PO SCH ×2 (10:01→21:38)
[2017-11-29] MEDS: MICAFUNGIN NA 100 MG in NS 100 ML IV SCH (10:09)
[2017-11-29] MEDS: AMIODARONE HCL 200 MG TAB PO SCH (11:20)
[2017-11-29] MEDS: LIDO/ZINC OX/CLOTRIMAZOLE (MAD) 116 GM CREAM TP SCH (11:26)
--- NOTE | 2017-11-29 12:06 | SOAPPROG ---
SOAP Progress Note Assessment/Plan: Assessment: 1. Myeloma, nonsecretory. (will only show up on PET-CT) 2. Septic shock, urinary source 3. Bladder hematoma, s/p evacuation 4. Candidemia He is improving, though still very weak. Plan: - continue tube feeds. would advance diet as he has passed swallow study - no transfusions needed today - continue abx and antifungal coverage per Id - would like to restart his myeloma regimen (daratumumab/ velcade) sooner rather than later. will wait 1-2 days to see what his disposition is (LTAC vs SNF. unlikely to be strong enough to go home at this point.) d/w dr salcido 35 min spent w/ pt and in coordination of care 11/29/17 12:04 11/29/17 12:08 Subjective: feeling better today. Objective: exam: chronically ill Lungs CTAB CV RRR no MGR Abd: +BS NT ND Ext: 1+ edema. L knee incision well healed Neuro: a+ox3. Vital Signs Temp Pulse Resp BP Pulse Ox 36.8 C 75 26 H 118/59 L 98 11/29/17 11:39 11/29/17 11:39 11/29/17 11:39 11/29/17 11:39 11/29/17 11:39 Microbiology 11/17/17 18:28 Blood Culture - Final Blood Milka Albicans Blood Panel (PCR) - Final Milka Albicans 11/23/17 06:32 Blood Culture - Final Blood 11/23/17 06:00 Blood Culture - Final Blood Laboratory Results 11/29/17 06:30 11/29/17 06:30 11/28/17 11/29/17 11/30/17 05:59 05:59 05:59 Intake Total 2175 300 1422 Output Total 3600 3600 Balance -1425 -3300 1422 PT 16.7 SEC (12.0-15.0) H 11/23/17 06:00 INR 1.33 (0.83-1.16) H 11/23/17 06:00 ICD10 Worksheet Patient Problems: Problems Problem Status Onset Atrial fibrillation Acute Pneumonia Acute Sepsis Acute
--- NOTE | 2017-11-29 14:13 | ASMTCMCOM ---
ZACH Note ZACH Note Notes: Met with patient's , Nimo, her sister, Marcus Seay, Geena's , Dinesh, palliative care, and myself to answer questions and clarify palliative care. Nimo is interested but is confused about patient's medical condition. She states the dr.'s have not been clear about what to expect, whether patient will improve, and what care is going to make sense for him. Geena has chosen a SNF in the event this is his next level of care. A referral was sent to [facility] in [place] at Nimo's request. She likes this SNF and it is close to their home. Dinesh has agreed to meet with Nimo and the patient to have the conversation about what his wishes are and how he wants to proceed. ZACH has sent a request to Dr. Perez to see if she might have some time to outline the patient's medical condition , what to expect regarding return to baseline and/or functioning, and what level of care he most likely will need next. ZACH will follow. Date Signed: 11/29/2017 02:12 PM Electronically Signed By:Maty Patiño LCSW
--- NOTE | 2017-11-29 15:43 | ASMTCMCOM ---
CM Note CM Note Notes: Dr. Perez and myself met with patient and his regarding next steps and medical care. Patient's oncologist, Dr. Irwin also supports SNF placement for patient. The patient and his are supportive of SNF and do not want LTAC if it can be avoided. Notified Dinesh that the patient and his are ready to have a conversation about his wishes and Palliative care. Hopefully he will have time to follow through today with this while the patient is feeling up to it. CM will need to call [facility] tomorrow to see if they can accept patient and work out the details. The referral was made today. CM will follow. Date Signed: 11/29/2017 03:42 PM Electronically Signed By:Maty Patiño LCSW
--- NOTE | 2017-11-29 16:00 | HOSPPROG ---
Hospitalist Progress Note Assessment/Plan: 72 yo M with hx of MM presenting with septic shock * Septic shock - off pressors, presumably urinary source, improved * candidemia: 1/2 cultures growing milka with repeat cxs not showing yeast, continue micafungin until 12/04 * Acute respiratory failure s/p extubation and o2 needs continue to decrease, now down to 3L * aspiration pna: covered by current abx, on room air currently * Cardiac arrest - brief CPR/Epi * Afib--continued on amiodarone and metoprolol and now in NSR * Metabolic encephalopathy - much improved, continues to have some confusion but largely back to baseline * Ecoli bacteremia-unasyn as above, continue unasyn until 11/29 * PICC line related DVT-given low plts only on ppx lmwh at this time * Kidney stone with bladder hematoma s/p evacuation Dr. 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 * Thrombocytopenia-improving * Chronic steroids - s/p stress dose * Dysphagia - passed swallow eval and is beginning to eat but not taking much by mouth, has NG in place for TFs still, will need to address prior to dc whether PEG needed or if able to take in enough. Will ask for calorie counts * Volume overload--nearing euvolemia, will change IV lasix to PO and continue to monitor * Hypernatremia-attempted to manage with TF but Na continues to elevate and now 153, will resume D5W and monitor * Enterovirus /rhinovirus- isolation, per Id less likely to be causative organism * goals of care: remains FC, plan for SNF likely in coming days if accepted Care plan reviewed with Dr. Irwin and CM, palliative team Subjective: patient continues to be more alert, has tolerated some oral intake of food Objective: Vital Signs Temp Pulse Resp BP Pulse Ox 37 C 83 20 141/71 H 92 11/29/17 15:53 11/29/17 15:53 11/29/17 15:53 11/29/17 15:53 11/29/17 15:53 Microbiology 11/17/17 18:28 Blood Culture - Final Blood Milka Albicans Blood Panel (PCR) - Final Milka Albicans Laboratory Results 11/29/17 06:30 11/29/17 06:30 11/28/17 11/29/17 11/30/17 05:59 05:59 05:59 Intake Total 2175 300 1422 Output Total 3600 3600 Balance -1425 -3300 1422 PT 16.7 SEC (12.0-15.0) H 11/23/17 06:00 INR 1.33 (0.83-1.16) H 11/23/17 06:00 awake chronically illl appearing somnolent anicteric sclera injected op clear rrr tachy cta b soft nt nd ble edema warm dry well perfused oriented ICD10 Worksheet Patient Problems: Problems Problem Status Onset Atrial fibrillation Acute Pneumonia Acute Sepsis Acute
[2017-11-29] MEDS ORDERED: POTASSIUM CL 20 MEQ/15 ML UDCUP TUBE ONE (20:45)
[2017-11-29] MEDS: MELATONIN 3 MG TAB TUBE SCH (21:38)
[2017-11-29] MEDS: ZOLPIDEM TARTRATE 5 MG TAB PO PRN (21:38)
[2017-11-30] MEDS: AMPICILLIN/SULBACTAM 3 GM in NS 100 ML IV SCH (00:43)
[2017-11-30] MEDS: LIDO/ZINC OX/CLOTRIMAZOLE (MAD) 116 GM CREAM TP SCH ×4 (00:43→20:44)
[2017-11-30] MEDS: INSULIN REGULAR HUMAN 100 UNIT/ML UNIT SC SCH ×4 (01:11→21:07)
[2017-11-30 04:33] LABS: PLATELET COUNT 107 10^3/uL (150-400)
[2017-11-30] MEDS ORDERED: POTASSIUM CL 10 MEQ TAB PO ONE (07:09)
[2017-11-30] MEDS: MICAFUNGIN NA 100 MG in NS 100 ML IV SCH ×2 (08:35→09:49)
[2017-11-30] MEDS: AMIODARONE HCL 200 MG TAB PO SCH ×2 (08:36→10:25)
[2017-11-30] MEDS: POTASSIUM CL 20 MEQ/15 ML UDCUP TUBE ONE ×2 (08:36→10:21)
[2017-11-30] MEDS: METOPROLOL TARTRATE 25 MG TAB PO SCH ×3 (08:36→20:41)
[2017-11-30] MEDS: FUROSEMIDE 20 MG TAB PO SCH ×3 (08:36→15:45)
[2017-11-30] MEDS: ACYCLOVIR 400 MG TAB TUBE SCH ×3 (08:36→20:41)
--- NOTE | 2017-11-30 08:47 | PCMIDPN ---
Assessment/Plan: #Sepsis : resolved #Ecoli bacteremia s/p 14 days antibiotics (initially ertapenem then changed to Unasyn) # low-grade Candidemia: Blood cultures from 11/23 are negative, complete 14 days of micafungin, stop date 12/04/17. With low-grade bacteremia doubt endophthalmitis. --continue micafungin through 12/04/2017. Patient cannot receive fluconazole due to coadministration of amiodarone and risk for prolonged QT --no ID f/u needed, call ID for additional questions # Aspiration PNA: minimal O2 requirements now, s/p 14 days abx to complete therapy for bacteremia # Thrombocytopenia : improved, now 107 Abx: micafungin 100mg IV daily #04/16 acyclovir 400mg PO BID ppx Amiodarone micro 11/15 blood cx e coli 11/15 Ucx neg 11/17 blood cx (1/2) aleksandra albicans LUPE to fluconazole = 1, micafungin < 0.008 11/21 cath tip: Neg 11/23 blood cx (2)neg 11/30/17 09:46 Subjective: Still has a productive cough and is generally weak but is doing much better. Objective: Vital Signs Temp Pulse Resp BP Pulse Ox 36.8 C 75 18 132/69 H 93 11/30/17 08:00 11/30/17 08:36 11/30/17 08:00 11/30/17 08:36 11/30/17 08:00 Laboratory Results 11/30/17 04:15 11/30/17 04:15 11/29/17 11/30/17 12/01/17 05:59 05:59 05:59 Intake Total 300 2592 Output Total 3600 3200 Balance -3300 -608 - Physical Exam General Appearance: alert, no apparent distress, thin, other (talking in complete sentences without SOB) EENT: NG Tube Respiratory: coarse breath sounds, No accessory muscle use, No wheezing Neck: supple Extremities: swelling (R arm swelling much improved, almost resolved), other Abdomen: normal bowel sounds, non-tender, soft Male Genitalia: skinner Skin: pallor, No rash Neuro/Psych: alert, normal mood/affect, oriented x 3 - Line/s LUE PICC Lines: No drainage, No erythema - Time Spent With Patient Time Spent with Patient: greater than 25 minutes Time Spent with Patient: Greater than 25 minutes spent on this patients care, greater than 50% of time spent counseling, educating, and coordinating care regarding the above mentioned plan. ICD10 Worksheet Patient Problems: Problems Problem Status Onset Atrial fibrillation Acute Pneumonia Acute Sepsis Acute
--- NOTE | 2017-11-30 09:48 | PDIAF ---
- Diagnosis Diagnosis: Candidemia Code Status: Full Code - Medication Management Discharge Medications: Medications to Continue on Transfer Acyclovir [Zovirax 400 mg (*)] 400 mg PO BID 11/15/17 [Last Taken 11/15/17] Albuterol [Proventil Inhaler HFA (*)] 1 - 2 puffs IH DAILY PRN 11/15/17 [Last Taken Unknown] Dexamethasone [Decadron 4 MG (*)] 20 mg PO DAILY PRN 11/15/17 [Last Taken ] LORazepam [Ativan (*)] 0.5 mg PO Q8HRS PRN 11/15/17 [Last Taken 11/15/17] Montelukast Sodium [Singulair 10 mg (*)] 10 mg PO DAILY 11/15/17 [Last Taken ] Multivitamins [Multivitamin (*)] 1 each PO DAILY 11/15/17 [Last Taken 11/15/17] Ondansetron HCl [Zofran] 8 mg PO Q8HRS PRN 11/15/17 [Last Taken 11/14/17 21:00] Rivaroxaban [Xarelto 10mg (*)] 10 mg PO DAILY 11/15/17 [Last Taken 11/15/17] traMADol [Ultram 50 mg (*)] 50 mg PO Q4 PRN 11/15/17 [Last Taken Unknown] Systems Admin Antibiotics: micafungin 100mg IV daily Systems Admin Antibiotic Stop Date: 12/04/17 Discharge Medications: Refer to the Discharge Home Medication list for PRN reason. PICC Care - Routine: Yes - Orders Isolation Type: Droplet Isolation Diet Texture: Dysphagia 1 - Pureed, Honey Thick Liquids, Ice Chips, Non Oral Meds - Labs/Radiology Call or Fax Lab and Imaging Results to: Caterina Kang MD [facility] at fax [phone] - Follow Up Care Current Providers and Referrals: Patient,NotPresent [Unknown] - As per Instructions
--- NOTE | 2017-11-30 11:09 | SOAPPROG ---
SOAP Progress Note Assessment/Plan: Assessment: 1. Myeloma, nonsecretory. (will only show up on PET-CT) 2. Septic shock, urinary source 3. Bladder hematoma, s/p evacuation 4. Candidemia He is improving, though still very weak. Plan: - continue tube feeds. if he is unable to get enough calories PO, would recommend G-tube placement - better solution for next weeks/months vs NGT. - no transfusions needed today. transfuse if hgb<7 - continue abx and antifungal coverage per Id - would like to restart his myeloma regimen (daratumumab/ velcade) sooner rather than later. I will arrange for him to receive it at our [facility] location which will be closer to home and the SNF that he has chosen. 25 min spent w/ pt and family and in coordination of care. Subjective: no complaints. still very weak. Objective: exam unchanged Vital Signs Temp Pulse Resp BP Pulse Ox 36.8 C 78 18 132/69 H 93 11/30/17 08:00 11/30/17 08:00 11/30/17 08:00 11/30/17 08:00 11/30/17 08:00 Laboratory Results 11/30/17 04:15 11/30/17 04:15 11/29/17 11/30/17 12/01/17 05:59 05:59 05:59 Intake Total 300 2592 130 Output Total 3600 3200 Balance -3300 -608 130 PT 16.7 SEC (12.0-15.0) H 11/23/17 06:00 INR 1.33 (0.83-1.16) H 11/23/17 06:00 ICD10 Worksheet Patient Problems: Problems Problem Status Onset Atrial fibrillation Acute Pneumonia Acute Sepsis Acute
--- NOTE | 2017-11-30 15:27 | HOSPPROG ---
Hospitalist Progress Note Assessment/Plan: # candidemia: 1 cultures growing aleksandra with repeat cxs not showing yeast -continue micafungin until 12/04 # Severe protein calorie malnutrition - discussing nutritional option at dc - suspect G-tube most appropriate - care conference today # Acute respiratory failure s/p extubation - oxygen saturations 94% on 2L Ct Chest (personally reviewed and interpreted) LLL infiltrate and effusion - completed Abx * Hypernatremia-sodium 153-> 151 - continue D5W # aspiration pna- completed current abx, on room air currently - video swallow eval today # Dysphagia - on TF's only PO for pleasure - video eval pending - suspect PEG necessary # Severe protein calorie malnutrition - BMI 19- currently on Tf's for nutrition # Metabolic encephalopathy - waxes and wanes * Afib--continued on amiodarone and metoprolol and now in NSR # Cardiac arrest - brief CPR/Epi # Septic shock - off pressors, presumably urinary source, improved # Ecoli bacteremia-completed unasyn 11/29 * PICC line related DVT-given low plts only on ppx lmwh at this time * Kidney stone with bladder hematoma s/p evacuation Dr. 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 * Thrombocytopenia-improving * Chronic steroids - s/p stress dose * Volume overload--nearing euvolemia, will change IV lasix to PO and continue to monitor * Enterovirus /rhinovirus- isolation, per Id less likely to be causative organism * goals of care: remains FC, plan for SNF likely in coming days if accepted I discussed the case with Palliative Care - will clarify goals today including nutritional goals Subjective: denies pain Objective: Vital Signs Temp Pulse Resp BP Pulse Ox 36.8 C 72 18 139/71 H 94 11/30/17 12:00 11/30/17 12:00 11/30/17 12:00 11/30/17 12:00 11/30/17 12:00 Laboratory Results 11/30/17 04:15 11/30/17 04:15 11/29/17 11/30/17 12/01/17 05:59 05:59 05:59 Intake Total 300 2592 130 Output Total 3600 3200 1000 Balance -3300 -608 -870 PT 16.7 SEC (12.0-15.0) H 11/23/17 06:00 INR 1.33 (0.83-1.16) H 11/23/17 06:00 - Physical Exam Constitutional: cachectic Eyes: anicteric sclera Ears, Nose, Mouth, Throat: dry mucous membranes Cardiovascular: regular rate and rhythym Respiratory: no respiratory distress Gastrointestinal: normoactive bowel sounds Genitourinary: no bladder fullness Skin: warm Musculoskeletal: No asymmetric calves Neurologic: No AAOx3 Psychiatric: encephalopathic Lymph, Heme, Immunologic: no cervical LAD ICD10 Worksheet Patient Problems: Problems Problem Status Onset Atrial fibrillation Acute Pneumonia Acute Sepsis Acute
--- NOTE | 2017-11-30 16:29 | ASMTCMCOM ---
CM Note CM Note Notes: CM spoke w/ Dr. Gambino regarding d/c POC. CM met w/ pt and for dispo planning. [facility] has accepted pt. Pts would like CM to make a referral to [facility] in [place] as a second choice. CM spoke w/ Gomez at [facility] and he will review pts case and get back to CM tomorrow. Dr. Gambino is ordering for a PEG tube for tomorrow. Anticipate that pt will be here for a couple more days. CM to follow. Plan: [facility] Date Signed: 11/30/2017 04:28 PM Electronically Signed By:ALMA Bailey
--- NOTE | 2017-11-30 18:41 | WOCRNPDOC ---
WOCRN Advanced Assessment Note - Skin Integrity Problem, Advanced Assess Left Greater Trochanter Pressure Injury Dressing Type: Allevyn Life Dressing Description: Clean/Dry, Intact Exudate Amount: Moderate Exudate Color: Red Exudate Characteristic(s): Sanguinous (patient on blood thinners. Bleeding well controlled with pressure. ) Integumentary Issue Intervention: Visualized Under Dressing Josee Wound Tissue: Blanching, Erythema Josee Wound Swelling: None Wound Bed Color: Red Wound Bed Constitution: Granulation Tissue (20%) Site Odor: None Site Measurement - Head-to-Toe Length X Width X Depth (cm): 1.8x0.9x0.1 Pressure Injury Stage: Stage 3 Pressure Injury Present on Admit: No Skin Integrity Problem Comment: Wound cleaned with water and gauze to reveal a full thickness wound with small buds of granulation surrounded by large area of non pink tissue (yellow/white). Patient positioned with hip on wedge. Education with JUSTIN Avila on importance of keeping all pressure off the wound and the bottom TAPS wedge to be placed distal to the wound bed. Yaneth ANDERSON and Cecilia ANDERSON in room for care. Wound care will round next week.
[2017-11-30] MEDS: MELATONIN 3 MG TAB TUBE SCH (20:41)
[2017-11-30] MEDS: ZOLPIDEM TARTRATE 5 MG TAB PO PRN (20:44)
[2017-11-30] MEDS ORDERED: POTASSIUM CL 20 MEQ/15 ML UDCUP TUBE ONE (22:30)
[2017-12-01] MEDS: INSULIN REGULAR HUMAN 100 UNIT/ML UNIT SC SCH ×4 (00:28→18:22)
[2017-12-01 04:02] LABS: PLATELET COUNT 106 10^3/uL (150-400)
[2017-12-01] MEDS: MICAFUNGIN NA 100 MG in NS 100 ML IV SCH (09:11)
[2017-12-01] MEDS: METOPROLOL TARTRATE 25 MG TAB PO SCH ×2 (09:12→20:38)
[2017-12-01] MEDS: FUROSEMIDE 20 MG TAB PO SCH ×3 (09:12→20:38)
[2017-12-01] MEDS: LIDO/ZINC OX/CLOTRIMAZOLE (MAD) 116 GM CREAM TP SCH ×2 (09:12→21:46)
[2017-12-01] MEDS: AMIODARONE HCL 200 MG TAB PO SCH (09:12)
[2017-12-01] MEDS: ACYCLOVIR 400 MG TAB TUBE SCH ×2 (09:12→20:38)
--- NOTE | 2017-12-01 10:08 | ASMTCMCOM ---
CM Note CM Note Notes: CM spoke w/ Dr. Gambino regarding d/c POC. [facility] in [place] has accepted pt. CM met w/ pt and for dispo planning. CM informed pt and that [facility] has accepted. Pt and 's first choice remains to be [facility]. Updates sent to [facility]. CM notified Gomez at [facility] that pt and has chosen another facility. Pt is having a PEG tube placed today. Pt could d/c as early as tomorrow. Pts would like pt to be followed by Yuan Saucedo at [facility]. Pts would like a referral made to [facility] for potential need for tube feeds post [facility]. Referrals sent to both [facility] and [facility]. CM spoke w/ Dinesh and provided updates. CM to follow. Plan: [facility] Date Signed: 12/01/2017 10:07 AM Electronically Signed By:ALMA Bailey
--- NOTE | 2017-12-01 10:09 | SOAPPROG ---
SOAP Progress Note Assessment/Plan: Assessment: 1. Myeloma, nonsecretory. (will only show up on PET-CT) 2. Septic shock, urinary source 3. Bladder hematoma, s/p evacuation 4. Candidemia 5. Atrial fibrillation, perioperative. He is improving, though still very weak. Plan: - G tube placement today - likely d/c to SNF tomorrow - while he is at the SNF, we will arrange for him to resume myeloma therapy ( kelly/velcade/dex) at our [facility] location. I have been in touch with the office there. He can return to the clinic in [place] to see me if he wants in the future. - no transfusions needed today. Subjective: feeling OK today. Objective: exam unchanged. seems more alert and energetic. Vital Signs Temp Pulse Resp BP Pulse Ox 36.5 C 79 18 137/67 H 95 12/01/17 08:00 12/01/17 08:00 12/01/17 08:00 12/01/17 08:00 12/01/17 08:00 Laboratory Results 12/01/17 03:55 12/01/17 03:55 11/30/17 12/01/17 12/02/17 05:59 05:59 05:59 Intake Total 2592 130 Output Total 3200 3000 475 Balance -608 -1110 -475 PT 16.7 SEC (12.0-15.0) H 11/23/17 06:00 INR 1.33 (0.83-1.16) H 11/23/17 06:00 ICD10 Worksheet Patient Problems: Problems Problem Status Onset Atrial fibrillation Acute Pneumonia Acute Sepsis Acute
[2017-12-01] MEDS: POTASSIUM Cl (KCl) 100 ML IV SCH ×2 (14:10→14:16)
[2017-12-01] MEDS: D5W 1,000 ML IV SCH (14:13)
--- NOTE | 2017-12-01 15:02 | HOSPPROG ---
Hospitalist Progress Note Assessment/Plan: # candidemia: 07/05 cultures growing aleksandra with repeat cxs not showing yeast -continue micafungin until 12/04 # Severe protein calorie malnutrition - discussing nutritional option at dc - G-tub placement by IR am 12/02 # Acute respiratory failure s/p extubation - oxygen saturations 95% on 2L Ct Chest (personally reviewed and interpreted) LLL infiltrate and effusion - completed Abx - continue Is - work on weaning O2 * Hypernatremia-sodium 153-> 147 - continue D5W IV - when G-tube placed can switch to free H2O boluses # aspiration pna- completed current abx, on room air currently - video swallow abnormal - # Dysphagia - on TF's only PO for pleasure - video eval abnormal - recommended repeat in future afte NGT removal and strengthening - G-tube tomorrow # Severe protein calorie malnutrition - BMI 19- currently on TF's for nutrition # Metabolic encephalopathy - waxes and wanes * Afib--continued on amiodarone and metoprolol and now in NSR # Cardiac arrest - brief CPR/Epi # Septic shock - off pressors, presumably urinary source, improved # Ecoli bacteremia-completed unasyn 11/29 * PICC line related DVT-given low plts only on ppx lmwh at this time * Kidney stone with bladder hematoma s/p evacuation Dr. 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 * Thrombocytopenia-improving * Chronic steroids - s/p stress dose * Volume overload--nearing euvolemia, will change IV lasix to PO and continue to monitor * Enterovirus /rhinovirus- isolation, per Id less likely to be causative organism * goals of care: remains FC, plan for SNF likely in coming days if accepted # proph - holding lovenox until after G-tube tomorrow I discussed the case with RN will stop TF's at midnight for G-tube placement in am Subjective: feels better today Objective: Vital Signs Temp Pulse Resp BP Pulse Ox 36.5 C 79 18 137/67 H 95 12/01/17 08:00 12/01/17 08:00 12/01/17 08:00 12/01/17 08:00 12/01/17 08:00 Laboratory Results 12/01/17 03:55 12/01/17 03:55 11/30/17 12/01/17 12/02/17 05:59 05:59 05:59 Intake Total 2592 130 Output Total 3200 3000 1125 Balance -606 -5616 -0518 PT 16.7 SEC (12.0-15.0) H 11/23/17 06:00 INR 1.33 (0.83-1.16) H 11/23/17 06:00 - Physical Exam Constitutional: chronically ill appearing, cachectic Eyes: anicteric sclera Ears, Nose, Mouth, Throat: moist mucous membranes Cardiovascular: regular rate and rhythym Respiratory: no respiratory distress Gastrointestinal: normoactive bowel sounds Genitourinary: no bladder fullness Skin: warm Musculoskeletal: No asymmetric calves Neurologic: AAOx3 Psychiatric: interacting appropriately Lymph, Heme, Immunologic: no cervical LAD ICD10 Worksheet Patient Problems: Problems Problem Status Onset Atrial fibrillation Acute Pneumonia Acute Sepsis Acute
[2017-12-01 17:25] LABS: INR 1.3 (0.83-1.16); PROTIME(PATIENT) 16.4 SEC (12.0-15.0)
[2017-12-01] MEDS: MELATONIN 3 MG TAB TUBE SCH (20:38)
[2017-12-01] MEDS: ZOLPIDEM TARTRATE 5 MG TAB PO PRN (21:45)
[2017-12-02] MEDS: INSULIN REGULAR HUMAN 100 UNIT/ML UNIT SC SCH ×4 (00:14→19:49)
[2017-12-02] MEDS: D5W 1,000 ML IV SCH (06:28)
[2017-12-02] MEDS ORDERED: MEPERIDINE 25 MG/ML SYR IVP PRN (08:09)
[2017-12-02] MEDS ORDERED: FLUMAZENIL 0.5 MG/5 ML MDV IVP PRN (08:09)
[2017-12-02] MEDS ORDERED: fentaNYL 100 MCG/2 ML INJ IVP PRN (08:09)
[2017-12-02] MEDS ORDERED: MIDAZOLAM 2 MG/2 ML VIAL IVP PRN (08:09)
[2017-12-02] MEDS ORDERED: NALOXONE HCL 0.4 MG/ML INJ IVP PRN (08:09)
--- NOTE | 2017-12-02 08:14 | PDPROPOC ---
Sedation Plan of Care Sedation Plan of Care: vital signs stable, mental status noted, patient educated of risks, benefits, alternatives, patient can tolerate sedation ASA Classification: ASA 3 Planned drugs: fentanyl, midazolam Mallampati Score: Class 3 Mallampati Reference Image:
[2017-12-02] MEDS ORDERED: NS 1,000 ML IV SCH (08:15)
--- NOTE | 2017-12-02 08:15 | PDGENHP ---
History & Physical Chief Complaint: protein malnutrition History of Present Illness: h/o multiple myeloma, admitted with sepsis now resolved. currently on TF. needs supplemental nutrition after discharge. Relevant Physical Exam: nondistended abdomen, nad Cardiorespiratory Assessment: rrr, nl wob
[2017-12-02] MEDS ORDERED: LIDOCAINE 1% 300 MG/30 ML SDV ONE (08:35)
[2017-12-02] MEDS ORDERED: IOPAMIDOL (ISOVUE-300) 100 ML BTL ONE (08:35)
[2017-12-02] MEDS ORDERED: CEFAZOLIN 1 GM/DEXTROSE/50 ML BAG IV ONE (08:50)
--- NOTE | 2017-12-02 09:25 | HOSPPROG ---
Hospitalist Progress Note Assessment/Plan: 72 yo male with h/o multiple myeloma presented with septic shock 2/2 urinary source, but also e/o PNA # candidemia: 1/2 cultures growing aleksandra with repeat cxs not showing yeast -continue micafungin until 12/04 # Severe protein calorie malnutrition - G-tube placement by IR this am - per IR, NPO until tomorrow am, then resume tube feeds # Acute respiratory failure s/p extubation - oxygen saturations 95% on 2L Ct Chest (personally reviewed and interpreted) LLL infiltrate and effusion - completed Abx - continue Is - wean O2 as able * Hypernatremia- normalized on D5W - change from D5W to free H2O boluses after G tube placed - continue hypotonic maintenance IVF's with 1/2 NS for today while NPO # aspiration pna- completed current abx, on room air currently - video swallow abnormal # Dysphagia - on TF's only PO for pleasure - G tube this am per IR # Severe protein calorie malnutrition - BMI 19- currently on TF's for nutrition # Metabolic encephalopathy - waxes and wanes * Afib- S/P cardioversion intra-operative, now in NSR. Chads-vasc 1-3 (3 if count DVT, which was provoked by PICC) - continue amiodarone and metoprolol - will discuss indication for anticoagulation with cards prior to dc * PICC line related thrombosis - given low plts only on ppx lmwh at this time. Discussed with onc, this is superficial vein. Dr. Irwin recommends continuing prophylactic dose Lovenox 40 mg daily. D/C PICC at discharge. * Multiple myeloma, on 3rd line tx, appreciate onc input, will need to see how much improvement in functional status he has to determine if he can resume chemo # Cardiac arrest - brief CPR/Epi during rapid A fib event # Septic shock - off pressors, presumably urinary source, improved # Ecoli bacteremia-completed unasyn 11/29 * Kidney stone with bladder hematoma s/p evacuation Dr. 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 Palliative care to start at SNF. # proph - holding lovenox until after G-tube, resume in AM Subjective: Pt doing well. Had G tube this am in IR, tolerated well. No pain. A little oozing from G tube site. No fevers/chills. NO N/V. Objective: Vital Signs Temp Pulse Resp BP Pulse Ox 36.9 C 78 18 143/72 H 94 12/02/17 04:00 12/02/17 04:00 12/02/17 04:00 12/02/17 04:00 12/02/17 04:00 Laboratory Results 12/01/17 03:55 12/02/17 05:19 12/01/17 12/02/17 12/03/17 05:59 05:59 05:59 Intake Total 130 1455 Output Total 3000 2575 Balance -2870 -1120 PT 16.4 SEC (12.0-15.0) H 12/01/17 17:00 INR 1.30 (0.83-1.16) H 12/01/17 17:00 - Physical Exam Constitutional: no apparent distress, cachectic Eyes: PERRL Ears, Nose, Mouth, Throat: moist mucous membranes Cardiovascular: regular rate and rhythym Respiratory: no respiratory distress, other (crackles at left base) Gastrointestinal: normoactive bowel sounds, soft, non-tender abdomen, other (G tube site dressed, some bleeding into dressing (small amt)) Skin: warm Musculoskeletal: generalized weakness Neurologic: AAOx3 Psychiatric: interacting appropriately ICD10 Worksheet Patient Problems: Problems Problem Status Onset Atrial fibrillation Acute Pneumonia Acute Sepsis Acute
[2017-12-02] MEDS ORDERED: GLUCAGON HCL 1 MG VIAL ONE (09:30)
[2017-12-02] MEDS ORDERED: GLUCAGON HCL 1 MG VIAL IVP ONE (09:35)
--- NOTE | 2017-12-02 09:53 | PDRADPN ---
Radiology Procedure Note Date of Procedure: 12/02/17 Radiologist: Hermes العلي Anesthesia: IV Sedation, Local (Specify) Pre-op Diagnosis: protein malnutrition Post-op Diagnosis: same Indication: outpatient tube feeds Procedure: gastrostomy Finding(s): Three gastropexies placed. 16F Entuit G tube placed. Inf/Abcess present in the surg proc area at time of surgery?: No EBL: Minimal Complications: none
[2017-12-02] MEDS ORDERED: D5W 1/2 NS W/ 20 KCl/L 1,000 ML IV SCH (10:30)
[2017-12-02] MEDS: AMIODARONE HCL 200 MG TAB PO SCH (11:59)
[2017-12-02] MEDS: ACYCLOVIR 400 MG TAB TUBE SCH ×2 (11:59→21:06)
[2017-12-02] MEDS: METOPROLOL TARTRATE 25 MG TAB PO SCH ×2 (11:59→21:05)
[2017-12-02] MEDS: FUROSEMIDE 20 MG TAB PO SCH ×2 (11:59→21:05)
[2017-12-02] MEDS: D5W 1/2 NS 1,000 ML IV SCH ×2 (11:59→23:39)
[2017-12-02] MEDS: MICAFUNGIN NA 100 MG in NS 100 ML IV SCH (12:00)
[2017-12-02] MEDS: LIDO/ZINC OX/CLOTRIMAZOLE (MAD) 116 GM CREAM TP SCH ×2 (12:00→21:11)
--- NOTE | 2017-12-02 14:45 | SOAPPROG ---
[facility]ER[facility] Progress Note Assessment/Plan: Assessment: 1. Myeloma, nonsecretory. (will only show up on PET-CT) 2. Septic shock, urinary source 3. Bladder hematoma, s/p evacuation 4. Candidemia 5. Atrial fibrillation, perioperative. 6. R PICC associated basilic vein thrombosis (superficial vein) He is improving, though still very weak. Plan: - G tube placement today - likely d/c to [facility] Tuesday - while he is at the [facility], we will arrange for him to resume myeloma therapy ( kelly/velcade/dex) at our [facility] location with Dr. Hudson. I have been in touch with the office there. He can return to the clinic in [place] to see me if he wants in the future. - no transfusions needed today. - with respect to his R arm thrombosis associated with a PICC- would recommend ongoing prophylactic anticoagulation with Lovenox 40 mg SC. The clot was technically not a DVT because the basilic vein is considered a superficial vein. 12/02/17 14:43 12/02/17 14:45 Subjective: G tube placed. feeling about the same. Objective: exam unchanged Vital Signs Temp Pulse Resp BP Pulse Ox 36.5 C 70 20 105/63 96 12/02/17 12:45 12/02/17 12:45 12/02/17 12:45 12/02/17 12:45 12/02/17 12:45 Laboratory Results 12/01/17 03:55 12/02/17 05:19 12/01/17 12/02/17 12/03/17 05:59 05:59 05:59 Intake Total 130 1455 50 Output Total 3000 2575 700 Balance -2870 -1120 -650 PT 16.4 SEC (12.0-15.0) H 12/01/17 17:00 INR 1.30 (0.83-1.16) H 12/01/17 17:00 ICD10 Worksheet Patient Problems: Problems Problem Status Onset Atrial fibrillation Acute Pneumonia Acute Sepsis Acute
--- NOTE | 2017-12-02 15:01 | ASMTCMCOM ---
CM Note CM Note Notes: Pt had his G tube placed today. Anticipate d/c for tomorr or Tuesday. CM sent updates to [facility]. [facility] provides their own transportation. CM met w/ pt and family for dispo planning. Pt and family is looking forward to the step down. CM to follow. Plan: [facility] Date Signed: 12/02/2017 03:01 PM Electronically Signed By:ALMA Bailey
[2017-12-02] MEDS ORDERED: POTASSIUM CL 10 MEQ TAB PO ONE (15:31)
[2017-12-02] MEDS: ZOLPIDEM TARTRATE 5 MG TAB PO PRN (21:06)
[2017-12-02] MEDS: MELATONIN 3 MG TAB TUBE SCH (21:08)
[2017-12-02] MEDS ORDERED: POTASSIUM CL 20 MEQ/15 ML UDCUP TUBE ONE (21:30)
[2017-12-03] MEDS: INSULIN REGULAR HUMAN 100 UNIT/ML UNIT SC SCH ×4 (01:09→18:15)
[2017-12-03] MEDS: MICAFUNGIN NA 100 MG in NS 100 ML IV SCH (09:41)
[2017-12-03] MEDS: ACYCLOVIR 400 MG TAB TUBE SCH ×2 (09:42→21:28)
[2017-12-03] MEDS: LIDO/ZINC OX/CLOTRIMAZOLE (MAD) 116 GM CREAM TP SCH ×2 (09:42→21:30)
[2017-12-03] MEDS: FUROSEMIDE 20 MG TAB TUBE SCH ×2 (10:02→21:29)
[2017-12-03] MEDS: AMIODARONE HCL 200 MG TAB TUBE SCH (10:02)
[2017-12-03] MEDS: METOPROLOL TARTRATE 25 MG TAB TUBE SCH ×2 (10:03→21:29)
[2017-12-03] MEDS: FUROSEMIDE 20 MG TAB PO SCH (10:06)
[2017-12-03] MEDS: AMIODARONE HCL 200 MG TAB PO SCH (10:06)
[2017-12-03] MEDS: METOPROLOL TARTRATE 25 MG TAB PO SCH (10:07)
--- NOTE | 2017-12-03 10:35 | HOSPPROG ---
Hospitalist Progress Note Assessment/Plan: 72 yo male with h/o multiple myeloma presented with septic shock 2/2 urinary source, but also e/o PNA # candidemia: 1/2 cultures growing aleksandra with repeat cxs not showing yeast -continue micafungin until 12/04 # Severe protein calorie malnutrition - G-tube placement by IR this am - resume tube feeds today and transition to bolus feeds # Acute respiratory failure s/p extubation - oxygen saturations 95% on 2L Ct Chest (personally reviewed and interpreted) LLL infiltrate and effusion - completed Abx - continue diuresis with oral lasix - wean O2 as able * Hypernatremia- normalized on D5W - d/c IVF's, now back on tube feeds with free water flushes # aspiration pna- completed current abx, on room air currently - video swallow abnormal, mod-severe dysphagia with high likelihood of ongoing aspiration - lengthy discussion with about risk of recurrent aspiration pna with "pleasure diet" # Dysphagia - on TF's only PO for pleasure - G tube functioning - d/c ng tube tomorrow if all goes well with use of G tube for tube feeds # Severe protein calorie malnutrition - BMI 19- currently on TF's for nutrition # Metabolic encephalopathy - waxes and wanes * Afib- S/P cardioversion intra-operative, now in NSR. Chads-vasc 1-3 (3 if count DVT, which was provoked by PICC) - continue amiodarone and metoprolol - discussed anticoagulation with cards. Given that A fib was in setting of sepsis / intra-operative event, will defer AC and start ASA for now for stroke prevention. Plan for holter and cardiology f/u. * PICC line related thrombosis - Discussed with onc, this is superficial vein. Dr. Irwin recommends continuing prophylactic dose Lovenox 40 mg daily. D/ C PICC at discharge. * Multiple myeloma, on 3rd line tx, appreciate onc input, will need to see how much improvement in functional status he has to determine if he can resume chemo # Cardiac arrest - brief CPR/Epi during rapid A fib event # Septic shock - off pressors, presumably urinary source, improved # Ecoli bacteremia-completed unasyn 11/29 * Kidney stone with bladder hematoma s/p evacuation Dr. 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 Palliative care to start at SNF. 45 minutes at beside addressing ongoing treatment plan and goals of care with . Pt unable to participate. # proph - resume lovenox today Subjective: Pt sleeps through most of my bedside discussion with his . Denies pain. Has a wet cough. No fevers. Objective: Vital Signs Temp Pulse Resp BP Pulse Ox 36.8 C 71 16 126/71 H 92 12/03/17 08:00 12/03/17 10:03 12/03/17 08:00 12/03/17 10:03 12/03/17 08:00 Laboratory Results 12/01/17 03:55 12/03/17 04:55 12/02/17 12/03/17 12/04/17 05:59 05:59 05:59 Intake Total 1455 50 1000 Output Total 2575 2175 450 Balance -1120 -2125 550 PT 16.4 SEC (12.0-15.0) H 12/01/17 17:00 INR 1.30 (0.83-1.16) H 12/01/17 17:00 - Physical Exam Constitutional: chronically ill appearing Eyes: PERRL Ears, Nose, Mouth, Throat: moist mucous membranes Cardiovascular: regular rate and rhythym Respiratory: no respiratory distress, reduced air movement Gastrointestinal: normoactive bowel sounds, soft, non-tender abdomen Skin: warm Musculoskeletal: generalized weakness Psychiatric: encephalopathic ICD10 Worksheet Patient Problems: Problems Problem Status Onset Atrial fibrillation Acute Pneumonia Acute Sepsis Acute
[2017-12-03] MEDS: POTASSIUM CL 20 MEQ/15 ML UDCUP TUBE SCH (12:50)
--- NOTE | 2017-12-03 15:23 | SOAPPROG ---
SOAP Progress Note Assessment/Plan: Assessment: 1. Myeloma, nonsecretory. (will only show up on PET-CT) 2. Septic shock, urinary source 3. Bladder hematoma, s/p evacuation 4. Candidemia 5. Atrial fibrillation, perioperative. 6. R PICC associated basilic vein thrombosis (superficial vein) He was sleeping when I entered the room, but was easily awakened and appropriately conversant. He understands that he will be going to a SNF closer to home ([place]), probably in the next 24 hours. His myeloma care can be continued by our partner, Dr. Hudson, at our [facility] office. We would be happy to resume his care if he returns to the [place] area. Plan: - G tube is placed - likely d/c to SNF Tuesday - while he is at the [facility], we will arrange for him to resume myeloma therapy ( kelly/velcade/dex) at our [facility] location with Dr. Hudson. I have been in touch with the office there. He can return to the clinic in [place] to see me if he wants in the future. - no transfusions needed today. - with respect to his R arm thrombosis associated with a PICC- would recommend ongoing prophylactic anticoagulation with Lovenox 40 mg SC. The clot was technically not a DVT because the basilic vein is considered a superficial vein. I'll sign off for now. please call with questions. Subjective: No new complaints today. Understands that he will be transferred to a SNF soon. Objective: Vital Signs Temp Pulse Resp BP Pulse Ox 36.8 C 71 16 126/71 H 92 12/03/17 08:00 12/03/17 10:03 12/03/17 08:00 12/03/17 10:03 12/03/17 08:00 Laboratory Results 12/03/17 12:15 12/03/17 04:55 12/01/17 12/02/17 12/03/17 23:59 23:59 23:59 Intake Total 1505 1000 Output Total 2024 2450 1425 Balance -5 -945 -425 PT 16.4 SEC (12.0-15.0) H 12/01/17 17:00 INR 1.30 (0.83-1.16) H 12/01/17 17:00 Physical Exam - Physical Exam General Appearance: alert, no apparent distress Respiratory: lungs clear (respirations somewhat 'moist' however) Cardiac/Chest: regular rate, rhythm Skin: pallor ICD10 Worksheet Patient Problems: Problems Problem Status Onset Atrial fibrillation Acute Pneumonia Acute Sepsis Acute
[2017-12-03] MEDS: ENOXAPARIN 40 MG/0.4 ML SYR SC SCH (17:46)
[2017-12-03] MEDS ORDERED: FUROSEMIDE 20 MG TAB TUBE SCH (21:00)
[2017-12-03] MEDS ORDERED: METOPROLOL TARTRATE 25 MG TAB TUBE SCH (21:00)
[2017-12-03] MEDS: MELATONIN 3 MG TAB TUBE SCH (21:28)
[2017-12-04] MEDS: INSULIN REGULAR HUMAN 100 UNIT/ML UNIT SC SCH ×3 (01:11→12:41)
[2017-12-04 08:09] VITALS: BP 130/59
[2017-12-04] MEDS: FUROSEMIDE 20 MG TAB TUBE SCH (08:51)
[2017-12-04] MEDS: METOPROLOL TARTRATE 25 MG TAB TUBE SCH (08:51)
[2017-12-04] MEDS: ENOXAPARIN 40 MG/0.4 ML SYR SC SCH (08:51)
[2017-12-04] MEDS: ACYCLOVIR 400 MG TAB TUBE SCH (08:51)
[2017-12-04] MEDS: AMIODARONE HCL 200 MG TAB TUBE SCH (08:51)
[2017-12-04] MEDS: POTASSIUM CL 20 MEQ/15 ML UDCUP TUBE SCH (08:52)
[2017-12-04] MEDS: LIDO/ZINC OX/CLOTRIMAZOLE (MAD) 116 GM CREAM TP SCH (08:52)
[2017-12-04] MEDS: MICAFUNGIN NA 100 MG in NS 100 ML IV SCH (08:52)
[2017-12-04] MEDS ORDERED: AMIODARONE HCL 200 MG TAB TUBE SCH (09:00)
--- NOTE | 2017-12-04 13:11 | PDIAF ---
- Diagnosis Diagnosis: Candidemia, Septic shock resolved Code Status: Full Code - Medication Management Discharge Medications: Medications to Continue on Transfer Acyclovir [Zovirax 400 mg (*)] 400 mg PO BID 11/15/17 [Last Taken 11/15/17] Albuterol [Proventil Inhaler HFA (*)] 1 - 2 puffs IH DAILY PRN 11/15/17 [Last Taken Unknown] Ondansetron HCl [Zofran] 8 mg PO Q8HRS PRN 11/15/17 [Last Taken 11/14/17 21:00] Rivaroxaban [Xarelto 10mg (*)] 10 mg PO DAILY 11/15/17 [Last Taken 11/15/17] traMADol [Ultram 50 mg (*)] 50 mg PO Q4 PRN 11/15/17 [Last Taken Unknown] Amiodarone HCl [Pacerone (*)] 200 mg TUBE DAILY #30 tab 12/04/17 [Last Taken Unknown] Aspirin [Aspirin EC] 81 mg PO DAILY #30 tablet. 12/04/17 [Last Taken Unknown] Furosemide [Lasix 20 MG (*)] 20 mg TUBE DAILY #30 tab 12/04/17 [Last Taken Unknown] Lido/Zinc Ox/Clotrimazole Crm [Moisture Associated Dermatitis Cream] 1 tresa TP BID cream 12/04/17 [Last Taken Unknown] Melatonin [Melatonin 3 MG (*)] 3 mg TUBE HS tab 12/04/17 [Last Taken Unknown] Metoprolol Tartrate [Lopressor 25 mg (*)] 25 mg TUBE BID #60 tab 12/04/17 [Last Taken Unknown] Montelukast Sodium [Singulair 10 mg (*)] 10 mg TUBE DAILY #30 12/04/17 [Last Taken 11/15/17] Potassium Chloride Po [Potassium Chloride 20 mg/15 ml (*)] 20 meq TUBE DAILY # 30 udcup 12/04/17 [Last Taken Unknown] Director Smb Sales Antibiotic Stop Date: 12/04/17 Discharge Medications: Refer to the Discharge Home Medication list for PRN reason. PICC Care - Routine: N/A - Orders Services needed: Registered Nurse, Certified Customs Compliance Manager, Physical Therapy, Occupational Therapy, Speech Language Pathologist Isolation Type: None Oxygen: 2 LPM Diet Recommendation: other (tube feeds. 270 mL bolus feeds QID with Jevity 1.5. Give over 30 minutes. Free water flushes 175 mLs q4h) Diet Texture: Dysphagia 1 - Pureed, Ice Chips, Non Oral Meds Tube feedin mL bolus feeds over 30 min QID with Jevity 1.5. 175 free h2o flush q4h Wound Care Instructions: Wound care orders: Change dressings to every 3 days and prn. 1. Clean with ns and gauze. 2. Skin prep luana wound. 3. Wound gel to wound bed. 4. Cover with bordered foam dressing (medium or large). Fabiola MOSQUEDA Additional Instructions: Follow up with Dr. Tay Sahni, or other Urologist, in 7-10 days for ongoing skinner management and possible removal. Follow up with Dr. Jose Raul Krishnan, [facility], or [facility] near [place], for Holter monitor and follow up on Atrial fibrillation and Amiodarone. Follow up with Oncology as planned. Bedsore (Pressure injury) care: You have a stage 3 pressure injury (also known as a bedsore) on left hip (the greater trochanter) To help heal this wound and avoid further injury please do the following: Reposition yourself frequently, at least every 15 minutes when sitting. Try to stand for at least 3 min every hour so that the tissues fully reperfuse with blood. We recommend sitting on an air cushion. Please never use a doughnut. When youre in bed, try to rest on your side as much as possible, and change position every two hours (for example, turn or tilt from your right side toward your left).~ If you sleep on a sleep number or medical bed, keep the head of the bed below 30 degrees and keep all pressure off your low back for at least 5 minutes at least every two hours.~ As needed, you may use Calazime, dimethicone moisture barrier cream, or any [id number] diaper rash cream to help prevent or treat a moisture-related rash to your bottom area and buttocks. Please contact [facility] for an appointment, at . Wound care orders: Change dressings to every 3 days and prn. 1. Clean with ns and gauze 2. Skin prep luana wound 3. Wound gel to wound bed 4. Cover with bordered foam dressing (medium or large) Fabiola Calles CWON - Labs/Radiology BMP Date: 12/12/17 (tyler DOWNS) CBC w/diff Date: 12/12/17 (tyler DOWNS) - Follow Up Care Current Providers and Referrals: Ren Irwin MD [Medical Doctor] - Jose Raul Krishnan MD [Medical Doctor] -
--- NOTE | 2017-12-04 14:09 | ASMTLACE ---
LACE Length of stay for Answers: 14 days or more current admission Acuity / Level of Answers: Yes Care: Did the patient have an inpatient admission? Comorbidities - select Answers: Any tumor (including all that apply lymphoma or leukemia) # of Emergency department Answers: 1-2 visits in the last 6 months Score: 13 Date Signed: 12/04/2017 02:08 PM Electronically Signed By:Joann Kruse RN
--- NOTE | 2017-12-04 14:13 | ASMTCMCOM ---
CM Note CM Note Notes: Medically cleared for discharge to [facility] in [place]. Final orders, PASSR, Meds and therapy notes via allscripts. Transport arranged via [facility] for stretcher and oxygen. RN given report number to call. PCS form filled out. supervisor fertilizer in one hour at 3pm. Donna ricci [facility] notified. CM available should other needs arise. Plan: to [facility] in [place] Date Signed: 12/04/2017 02:12 PM Electronically Signed By:Joann Kruse RN
--- NOTE | 2017-12-04 17:16 | GDS ---
[f rep st] DISCHARGE SUMMARY DISCHARGE DIAGNOSES: 1. Septic shock secondary to urinary source and possible pneumonia source, resolved. 2. Escherichia coli bacteremia status post treatment course with intravenous Unasyn. 3. Candidemia. 4. Acute respiratory failure requiring intubation, discharging on 2 L of oxygen by nasal cannula. 5. Aspiration pneumonia. 6. Bilateral pleural effusions, improved. 7. Hypernatremia, resolved. 8. Dysphagia with ongoing aspiration risk requiring placement of a gastrostomy tube. 9. Severe protein calorie malnutrition, discharging on tube feeds. 10. Metabolic encephalopathy, improved. 11. Cardiac arrest requiring brief cardiopulmonary resuscitation secondary to rapid atrial fibrillat ion intraoperatively. 12. Atrial fibrillation, now in sinus rhythm. 13. Peripherally inserted central catheter line-related superficial thrombosis. 14. Multiple myeloma. 15. Nephrolithiasis with bladder hematoma status post evacuation November 16. 16. Acute blood loss anemia requiring 4 units packed red blood cells. 17. Thrombocytopenia, likely secondary to sepsis resolved. 18. Volume overload status post diuresis. 19. Chronic steroids status post stress dose steroids. 20. Enterovirus/rhinovirus. 21. 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 CONSULTANTS: 1. Dr. Anny Ayoub, oncology. 2. Dr. Caleb Gama, pulmonology. 3. Dr. Denny Mtz, urology. 4. Dr. Doug Bowling, infectious disease. 5. Dr. Kevin Paz, cardiology. PROCEDURES: 1. PICC line insertion, November 15, 2017. 2. Cystolitholapaxy with large stone evacuation from the bladder and fulguration of bladder varices by Dr. Denny Mtz, November 16, 2017. 3. DC cardioversion for rapid atrial fibrillation, November 16, 2017. 4. Echocardiogram, November 25, 2017, showed no pericardial effusion. Ejection fraction of 56%, mild azeem ral regurgitation, mild to moderate tricuspid regurgitation. No evidence of cardiac amyloid and no f inding suggestive of restrictive cardiomyopathy. HISTORY OF DETAILS: Please see the history and physical dated November 15, 2017. In brief, the patient i s a 72-year-old male with history of multiple myeloma on 3rd line chemotherapy, who presented to the emergency department with evidence of septic shock. Initial source was thought secondary to left low er lobe pneumonia. He was admitted to the intensive care unit for further management. HOSPITAL COURSE: Patient was admitted to the ICU. Blood cultures were drawn. He was treated with b road-spectrum antibiotics. His blood cultures grew E coli, and attention was turned to a possible ur inary source. A renal ultrasound was performed which showed no hydronephrosis, a nonobstructive calc ulus in the lower pole of the left kidney, as well as a large blood clot and blood products within th e bladder, as well as bladder calculi were seen causing a bladder outlet obstruction with a bladder v olume of 863 mL. Urology consult was obtained. The patient had a continuous bladder irrigation, und erwent clot and calculus removal by Dr. Denny Mtz. A Tubbs catheter was placed. There was attempt ed removal of the Tubbs several days prior to discharge. However, he had ongoing urinary retention a nd will discharge with the Tubbs in place and will need outpatient Urology followup. During his urology intervention, he had a brief cardiac arrest with a rhythm showing rapid atrial fib rillation. He received emergent DC cardioversion followed by amiodarone with successful maintenance of normal sinus rhythm. He has been continued on metoprolol for rate control. I discussed the case with Cardiology prior to discharge. He will be discharged on aspirin for stroke prevention. Will con tinue amiodarone and metoprolol. I recommend that he follow up with Cardiology, either [facility] and [place] for outpatient Holter monitor to continue to look for evidence of ongoing atrial f ibrillation, which would warrant management with anticoagulation. He was also found to have a PICC-associated superficial vein thrombosis. This was treated with proph ylactic Lovenox. The case was reviewed with Hematology, did not feel this warranted systemic anticoa gulation. He had previously been on low-dose Xarelto and will transition his prophylactic Lovenox ba ck to his outpatient low-dose Xarelto dose for ongoing management and plan to follow up with Oncology and Hematology for further direction regarding duration of therapy on the low-dose Xarelto. With respect to his aspiration pneumonia, he was found to have moderate to severe dysphagia on video fluoroscopic swallow study. He ultimately required a G-tube with initiation of tube feeds for nutrit ion. He elected to continue to have a pleasure diet. I had a lengthy discussion with he and his wif e about the ongoing risk for aspiration, which could result in recurrent aspiration pneumonia and fur ther complications with sepsis. They acknowledged this risk, and he will continue to have pleasure d iet of thickened liquids as recommended by Speech Therapy. He was tolerating tube feeds at goal. Th kvng were transitioned to bolus feeds on the day of discharge, and he received 2 bolus feeds prior to discharge and tolerated them well. He developed hypernatremia during the hospitalization, which reso lved with D5W with the initiation of tube feeds. He began to receive free water boluses and his sodi um remained stable. I recommend this be rechecked in 1 week. With respect to his multiple myeloma, he is followed by Dr. Ren Irwin and he has been referred t o an oncologist in [place] with a plan to follow up next week. If his functional status improves, it sounds like there is an option for 4th line chemotherapy treatment for his multiple myeloma. DISPOSITION: [facility]. FOLLOWUP: 1. Dr. Jose Raul Krishnan or Cardiology near [place], [place], where he is transferring for Holter monitor a nd followup of his atrial fibrillation and recommendations regarding ongoing amiodarone use. 2. Dr. Ren Irwin or Oncology in [place], [place], for ongoing recommendations regarding katya gement of his multiple myeloma. 3. Dr. Neo Sahni, urology, in the [facility] or another urologist of his choice in 7-10 days for Tubbs management and possible removal of voiding trial. 4. Wound care for ongoing management of his stage III pressure injury to the left hip. DISCHARGE MEDICATIONS: Please see [facility] completed outpatient medication list. NEW MEDICATIONS ON DISCHARGE: 1. Include amiodarone 200 mg per tube daily #30 no refills. 2. Aspirin 81 mg p.o. daily #30 no refills. 3. Lasix 20 mg per tube daily #30 no refills. 4. Dermatitis cream. 5. Melatonin 3 mg per tube h.s. 6. Metoprolol 25 mg per tube b.i.d. #60 no refills. 7. Potassium 20 mEq per tube daily no refills. Dexamethasone and Ativan are discontinued as he has not been receiving these in the hospital. He will continue all other outpatient medications as previously prescribed including acyclovir 400 mg p.o. b.i.d., albuterol 1-2 puffs inhaled daily p.r.n., Zofran 8 mg p.o. q.8 hours p.r.n., Xarelto 10 mg p.o. daily, and tramadol 50 mg p.o. q.4 hours p.r.n. for pain. /[id number]/MODL
--- NOTE | 2017-12-05 09:29 | ASDISCHSUM ---
Discharge Information Plan Status:SNF Medically Cleared to Leave:12/04/2017 Discharge Date:12/04/2017 03:05 PM CM D/C Disposition:Assisted Facility ADT D/C Disposition:Assisted Facility Projected Discharge Date:12/04/2017 11:00 AM Transportation at D/C:ALS/BLS Discharge Delay Reason: Follow-Up Date:12/04/2017 11:00 AM Discharge Slot: Final Diagnosis:Septic shock-L sided PNA Placement Information Referral Type:[facility] Referral ID:[id number] Provider Name: Address 1: Phone Number: Address 2: Fax Number: City: Selection Factors: State: Referral Type:*Residential/SNF Referral ID:[id number] Provider Name:[facility] Address 1:[address] Address 2: City:[place] Selection Factors: State:[place] Referral Type:Home Infusion Referral ID:[id number] Provider Name: Address 1: Phone Number: Address 2: Fax Number: City: Selection Factors: State: Referral Type:Palliative Care Referral ID:[id number] Provider Name:[facility] Address 1:[address] Phone Number: Address 2: Fax Number: City:[place] Selection Factors: State:[place] Patient Contact Information Contact Name:TANNER Relationship: Address:[address] [place] [address] City:[facility] Phone: State/Zip Code:[place] [address] Email: Financial Information Financial Class:Medicare Primary Plan Desc:MEDICARE INPATIENT Primary Plan Number:[id number] Secondary Plan Desc:[id number] Secondary Plan Number:[id number] Assessment Information LACE LACE Length of stay for Answers: 14 days or more current admission Acuity / Level of Answers: Yes Care: Did the patient have an inpatient admission? Comorbidities - select Answers: Any tumor (including all that apply lymphoma or leukemia) # of Emergency department Answers: 1-2 visits in the last 6 months Score: 13 Date Signed: 12/04/2017 02:08 PM Electronically Signed By:Joann Kruse RN [facility] CM Progress Note CM Note CM Note Notes: 72yr old male admitted due to unresponsiveness in car outside [facility]. Started on chemo therapy 11/14/17 relapsed multiple myeloma. Recent L femur surgery 11/02/17. Now in ICU due to septic shock-L L PNA, Hypoxic resp failure, TAVON. Patient lives with his , supportive daughter. CM to follow. Date Signed: 11/15/2017 02:35 PM Electronically Signed By:Mary Santana LCSW [facility] CM Progress Note CM Note CM Note Notes: Patient is intubated and sedated. He is followed by urology, oncology, spanish moss picker, and infectious disease services. His prognosis is guarded. He has a supportive and involved family who will help guide discharge planning. Case Management will follow. Date Signed: 11/17/2017 02:59 PM Electronically Signed By:Jocelyne Lemus RN [facility] CM Progress Note CM Note CM Note Notes: Patient remains critically ill. Therapies have been unable to work with patient yet. Family remains involved and supportive of patient. CM will follow. Date Signed: 11/18/2017 03:14 PM Electronically Signed By:Maty Patiño LCSW [facility] Progress Note CM Note CM Note Notes: Patient, , and sister had a family meeting today with building manager and tax manager public. I wasn't able to attend, but I did speak with them about possible discharge plans. I anticipate that patient will need SNF; PT has only seen him once but also anticipates need for SNF. I gave patient's a list of facilities near [place]. She will visit/research and let us know what she thinks. We will handle referrals. If needs change, we'll work with family to help them get the services they need. Date Signed: 11/21/2017 02:30 PM Electronically Signed By:Jocelyne Lemus RN [facility] Progress Note CM Note CM Note Notes: Patient remains critically ill. Patient continuing to have issues with AFIB. Cardiology has been contacted. CM will follow. Date Signed: 11/23/2017 02:27 PM Electronically Signed By:Maty Patiño LCSW [facility] Progress Note CM Note CM Note Notes: Patient remains critically ill. Palliative care consult will be ordered. This is an informational with the family members only as the patient is unable to participate.Chaplain iSs, is working with the family to set up a meeting for Tuesday of next week. CM will follow. Date Signed: 11/25/2017 02:23 PM Electronically Signed By:Maty Patiño LCSW [facility] Progress Note CM Note CM Note Notes: Chaplain Sis spoke to the patient's family re: the palliative care consult. Patient's stated she felt somewhat blindsided because she has been in denial but was grateful to have the discussion. She is interested in discussing Palliative and the meeting is tenatively set up for Tuesday. Nimo stated she would have been blindsided at any time because of the denial. Patient's nurse also expressed concern regarding the level of suffering the patient is having. Nimo, patient's , states he was DNR prior to surgery and she is hoping he is clear enough at some point soon to ask him his wishes at this point. If he can respond, she plans to change his status this evening. Dr. Perez spoke with the family to give them a clearer picture of his current medical status, letting them know he has a guarded prognosis and a lot to recover from in a deconditioned state. Dr. Perez did let them know in her opinion she would not put the patient through full code measures.CM may have to work with this family over the weekend if they decide they want to get the patient home. If there are changes, hospice may be appropriate. If not the plan is to follow up with palliative care on Tuesday of next week. Monitor also for advanced directives changing. CM will follow. Date Signed: 11/25/2017 04:05 PM Electronically Signed By:Maty Patiño LCSW [facility] CM Progress Note CM Note CM Note Notes: Asked by RN to meet w/pt's family regarding questions they have. Met w/pt's Chanelle and some other family members. They had many dc planning questions as well as questions about palliative care and Hospice. We discussed each type of care and the difference btw them. They seem to be leaning more towards palliative and rehab and they have begun looking at rehab facilities near [place]. PT/OT recommending SNF rehab. Family will continue to look at facilities and then let us know which ones we should send referrals to. Discussed w/Dr Perez. There will be a palliative care conference on November 29, time not scheduled yet so will need to follow up Tuesday on this. Date Signed: 11/26/2017 07:09 PM Electronically Signed By:Little Rodriguez RN [facility] Progress Note CM Note CM Note Notes: Patient status reviewed in rounds.He has pneumonia, sepsis and has failed his swallow evaluation. Per therapy they recommend SNF. His verbalized concerns regarding post hospitalization placement and rehab. She understands that he may not be physically ready for a rehab facility versus rn long term care acute care. [facility] CM to follow. Plan: LTAC Versus SNF Date Signed: 11/27/2017 12:25 PM Electronically Signed By:Joann Kruse RN [facility] Progress Note CM Note CM Note Notes: Met with patient's , Nimo, her sister, Marcus Seay, Geena's , Dinesh, palliative care, and myself to answer questions and clarify palliative care. Nimo is interested but is confused about patient's medical condition. She states the dr.'s have not been clear about what to expect, whether patient will improve, and what care is going to make sense for him. Geena has chosen a SNF in the event this is his next level of care. A referral was sent to [facility] in [place], [place] at Nimo's request. She likes this SNF and it is close to their home. Dinesh has agreed to meet with Nimo and the patient to have the conversation about what his wishes are and how he wants to proceed. [facility] has sent a request to Dr. Perez to see if she might have some time to outline the patient's medical condition , what to expect regarding return to baseline and/or functioning, and what level of care he most likely will need next. CM will follow. Date Signed: 11/29/2017 02:12 PM Electronically Signed By:Maty Patiño LCSW [facility] Progress Note CM Note CM Note Notes: Dr. Perez and myself met with patient and his regarding next steps and medical care. Patient's oncologist, Dr. Irwin also supports SNF placement for patient. The patient and his are supportive of SNF and do not want LTAC if it can be avoided. Notified Dinesh that the patient and his are ready to have a conversation about his wishes and Palliative care. Hopefully he will have time to follow through today with this while the patient is feeling up to it. CM will need to call [facility] tomorrow to see if they can accept patient and work out the details. The referral was made today. CM will follow. Date Signed: 11/29/2017 03:42 PM Electronically Signed By:Maty Patiño LCSW [facility] Progress Note CM Note CM Note Notes: CM spoke w/ Dr. Gambino regarding d/c POC. CM met w/ pt and for dispo planning. [facility] has accepted pt. Pts would like CM to make a referral to [facility] in [place] as a second choice. CM spoke w/ Gomez at [facility] and he will review pts case and get back to CM tomorrow. Dr. Gambino is ordering for a PEG tube for tomorrow. Anticipate that pt will be here for a couple more days. CM to follow. Plan: [facility] Date Signed: 11/30/2017 04:28 PM Electronically Signed By:ALMA Bailey [facility] Progress Note CM Note CM Note Notes: CM spoke w/ Dr. Gambino regarding d/c POC. [facility] in [place] has accepted pt. CM met w/ pt and for dispo planning. CM informed pt and that [facility] has accepted. Pt and 's first choice remains to be [facility]. Updates sent to [facility]. CM notified Gomez at [facility] that pt and has chosen another facility. Pt is having a PEG tube placed today. Pt could d/c as early as tomorrow. Pts would like pt to be followed by Yuan Saucedo at [facility]. Pts would like a referral made to [facility] for potential need for tube feeds post [facility]. Referrals sent to both [facility] and [facility]. CM spoke w/ Dinesh and provided updates. CM to follow. Plan: [facility] Date Signed: 12/01/2017 10:07 AM Electronically Signed By:ALMA Bailey [facility] Progress Note CM Note CM Note Notes: Pt had his G tube placed today. Anticipate d/c for tom or Tuesday. CM sent updates to [facility]. [facility] provides their own transportation. CM met w/ pt and family for dispo planning. Pt and family is looking forward to the step down. CM to follow. Plan: [facility] Date Signed: 12/02/2017 03:01 PM Electronically Signed By:ALMA Bailey [facility] Progress Note CM Note CM Note Notes: Medically cleared for discharge to [facility] in [place]. Final orders, PASSR, Meds and therapy notes via allscripts. Transport arranged via [facility] for stretcher and oxygen. RN given report number to call. PCS form filled out. janitorial services supervisor in one hour at 3pm. Donna at [facility] notified. CM available should other needs arise. Plan: to [facility] in [place] Date Signed: 12/04/2017 02:12 PM Electronically Signed By:Joann Kruse RN Intervention Information
== END 2017-12-04 15:05 | DRG 662 ==
LOC: EDUNIT# → F2N 11:50 → F3E 11-28 15:14
PROVIDERS: ADMIT Internal Medicine; ATTEND Hospitalist
PROC: 02HV33Z Insertion of Infusion Device into Superior Vena Cava, Percutaneous Approach (ICD-10-PCS; 2017-11-15)
PROC: 3E043XZ Introduction of Vasopressor into Central Vein, Percutaneous Approach (ICD-10-PCS; 2017-11-16)
PROC: 0TCB8ZZ Extirpation of Matter from Bladder, Via Natural or Artificial Opening Endoscopic (ICD-10-PCS; principal; 2017-11-16 11:15)
PROC: 5A2204Z Restoration of Cardiac Rhythm, Single (ICD-10-PCS; principal; 2017-11-16 11:15)
PROC: 5A1955Z Respiratory Ventilation, Greater than 96 Consecutive Hours (ICD-10-PCS; principal; 2017-11-16 11:15)
PROC: 5A12012 Performance of Cardiac Output, Single, Manual (ICD-10-PCS; principal; 2017-11-16 11:15)
PROC: 0W3R8ZZ Control Bleeding in Genitourinary Tract, Via Natural or Artificial Opening Endoscopic (ICD-10-PCS; principal; 2017-11-16 11:15)
PROC: 30233N1 Transfusion of Nonautologous Red Blood Cells into Peripheral Vein, Percutaneous Approach (ICD-10-PCS; 2017-11-17)
PROC: 02HV33Z Insertion of Infusion Device into Superior Vena Cava, Percutaneous Approach (ICD-10-PCS; 2017-11-21)
PROC: 0DH63UZ Insertion of Feeding Device into Stomach, Percutaneous Approach (ICD-10-PCS; 2017-12-02)
DX: T83.511A Infection and inflammatory reaction due to indwelling urethral catheter, initial encounter (principal); N39.0 Urinary tract infection, site not specified; A41.51 Sepsis due to Escherichia coli [E. coli]; R65.21 Severe sepsis with septic shock; E87.2 Acidosis; N17.9 Acute kidney failure, unspecified; N32.0 Bladder-neck obstruction; N21.0 Calculus in bladder; R31.0 Gross hematuria; N32.89 Other specified disorders of bladder; Z79.01 Long term (current) use of anticoagulants; J69.0 Pneumonitis due to inhalation of food and vomit; R13.12 Dysphagia, oropharyngeal phase; I48.1 Persistent atrial fibrillation; I46.2 Cardiac arrest due to underlying cardiac condition; T80.211A Bloodstream infection due to central venous catheter, initial encounter; B37.7 Candidal sepsis; T82.868A Thrombosis due to vascular prosthetic devices, implants and grafts, initial encounter; I82.611 Acute embolism and thrombosis of superficial veins of right upper extremity; E43 Unspecified severe protein-calorie malnutrition; Z68.1 Body mass index [BMI] 19.9 or less, adult; D62 Acute posthemorrhagic anemia; D69.6 Thrombocytopenia, unspecified; E87.0 Hyperosmolality and hypernatremia; L89.223 Pressure ulcer of left hip, stage 3; G93.41 Metabolic encephalopathy; L25.8 Unspecified contact dermatitis due to other agents; R33.9 Retention of urine, unspecified; C90.00 Multiple myeloma not having achieved remission; B34.1 Enterovirus infection, unspecified
CPT/HCPCS: 82365-90; 82947-QW; 86157-90; 86870-90; 86905-90; 86922-90; 87186-90; 87449-90; 92507-GN; 92523-GN; 92526-GN; 92610-GN; 92611-GN; 96365; 97110-GP; 97112-GP; 97163-GP; 97167-GO; 97530-GO; 97530-GP; 97535-GO; C1729; C1751; C1769; G8978-GP-CM; G8978-GP-CN; G8979-GP-CK; G8979-GP-CL; G8987-GO-CM; G8988-GO-CK; G8996-GN-CK; G8997-GN-CI; G8997-GN-CK; G8998-GN-CK; G9165-GN-CL; G9166-GN-CL; G9167-GN-CL; J0282; J0295; J0456; J0610; J0690; J0696; J1160; J1170; J1200; J1335; J1610; J1644; J1650; J1720; J1815; J1940; J1956; J2060; J2248; J2250; J2270; J2310; J2704; J2997; J3010; J3411; J3475; J3480; P9016; P9041; P9047; Q9967